=== PATIENT | male | born 1940 | race Caucasian/White ===

== ENCOUNTER → 2023-11-11 13:29 | Outpatient (REF) | payer MEDICARE, OTHER, SELFPAY | LOC: WOUND 13:29 | PROVIDERS: ATTENDING PHYSICIAN Surgery Plastic and Reconstructive Surgery; REFERRING PHYSICIAN Internal Medicine | DX: I70.234 Atherosclerosis of native arteries of right leg with ulceration of heel and midfoot (principal); L97.414 Non-pressure chronic ulcer of right heel and midfoot with necrosis of bone; E11.621 Type 2 diabetes mellitus with foot ulcer; E11.51 Type 2 diabetes mellitus with diabetic peripheral angiopathy without gangrene | CPT/HCPCS: 97597; 99213 ==

== ENCOUNTER → 2023-12-09 11:52 | Outpatient (REF) | payer MEDICARE, OTHER, SELFPAY | LOC: WOUND 11:52 | PROVIDERS: ATTENDING PHYSICIAN Surgery; FAMILY PHYSICIAN Internal Medicine | DX: I70.234 Atherosclerosis of native arteries of right leg with ulceration of heel and midfoot (principal); L97.414 Non-pressure chronic ulcer of right heel and midfoot with necrosis of bone; L89.313 Pressure ulcer of right buttock, stage 3; E11.621 Type 2 diabetes mellitus with foot ulcer; N18.30 Chronic kidney disease, stage 3 unspecified; I50.9 Heart failure, unspecified; E11.22 Type 2 diabetes mellitus with diabetic chronic kidney disease | CPT/HCPCS: 11042; 97597; 99213 ==

== ENCOUNTER 2023-12-31 19:17 | Inpatient (IN) | payer MEDICARE, OTHER, SELFPAY ==
[2023-12-31] VITALS (7 sets, daily range): BP systolic 111–134; BP diastolic 49–68; BMI 18.1
--- NOTE | 2023-12-31 17:24 | ED.GENMED ---
History of Present Illness
General
Chief Complaint: Abnormal Lab Value
Source: patient and ambulance crew
Exam Limitations: none
Time Seen by Provider: 12/31/23 17:06
Nursing documentation reviewed up to this point in time: agreed with
Travel History
Have you had any contact with someone who has COVID-19?: No
Do you have any symptoms of coronavirus? Fever > 100 degrees, chills, cough, shortness of breath, sore throat, loss of taste or smell, muscle aches, or headache?: No
History of Present Illness
History of Present Illness:
83 yo male presents emergency department due to abnormal labs, generalized weakness for the last few days. EMS notes that the halfway stated his hemoglobin was 6.8. He states he has had GI bleeds in the past, but denies any known bleeding at
this time.
Past History
Past History
ED Past Medical History: CHF, GERD, IDDM, Renal failure and Other (Diabetic neuropathy, peripheral vascular disease)
ED Past Surgical History: Other (RLE angioplasty, wound debridement, cataract)
Social History
Tobacco: Non-smoker
Alcohol: None
Drug: None
Living: halfway
Review of Systems
Review of Systems
Allergies reviewed?: Yes
All Other Systems: Not applicable
Constitutional: Reports no symptoms
EENT: Reports no symptoms
Respiratory: Reports trouble breathing
Cardiac: Reports no symptoms
ABD/GI: Reports no symptoms
: Reports no symptoms
Musculoskeletal: Reports no symptoms
Skin: Reports no symptoms
Neurological: Reports weakness
Endocrine: Reports no symptoms
Hematologic/Lymphatic: Reports no symptoms
Psychiatric: Reports no symptoms
Phy Exam
Physical Exam
Physical Exam:
Physical Exam
General: Pale, chronic ill-appearing
Neck: supple. no meningeal signs. normal posterior pharynx
Heart: s1/s2 regular rate and rhythm, no murmur. equal radial
pulses.
HEENT: Pupils equal round reactive to light, EOMI, pale oral mucosa
Lungs: no acute respiratory distress. clear bilaterally
Abdomen: normal bowel sounds. not tender. no CVAT, rectal exam, guaiac neg brown stool
Neuro: alert and oriented. no focal neurological deficits cranial nerves II through XII intact
Skin: no rash
Psychiatric: well kept. interactive and cooperative
Extremities: no edema. no calf tenderness. negative homans. good distal pulses
Course
Vital Signs
Initial and Last Documented VS:
Initial Vital Signs
Temp Pulse Resp BP Pulse Ox
97.7 F 88 18 111/64 99
12/31/23 13:59 12/31/23 13:59 12/31/23 13:59 12/31/23 13:59 12/31/23 13:59
Last Documented Vital Signs
Temp Pulse Resp BP Pulse Ox
97.7 F 88 18 111/64 99
12/31/23 13:59 12/31/23 13:59 12/31/23 13:59 12/31/23 13:59 12/31/23 13:59
MDM/Problems Addressed
Differential Diagnosis Includes:
Rectal bleeding, anemia
MDM/Problems Addressed:
83 yo male with symptomatic anemia, Hb 6.4. Rectal exam guaiac neg. Admit to hospitalist. 1 unit prbc ordered.
Chronic conditions affecting care: HTN and PVD
Acute Exacerbation and/or Progression of Chronic Illness: HTN and PVD
*Pulse Oximetry
Patient hypoxic: no
*EKG
Interpreted by ED Provider?: NA
*Family Law Legal Assistant Interpretation
Rate: Family Law Legal Assistant- N/A
*Critical Care Note
Total Time (30-74mins, 75-104mins- exclusive of procedures): 30
comment:
Critical care statement: A total of 30 minutes of critical care time was provided for this patient. This includes management of unstable vital signs, evaluation of the patient at bedside, reviewing the patient's pertinent medical records, discussion
with consultants, review of old EKGs and review of pertinent medical records. This time with separate from time utilized to perform the aforementioned documented procedures
Data Reviewed
Review of Other/Old Records Reveals: Labs (prior hb 9.9 07/28/23)
Patient Management
Social determinants of health affecting care: Living situation
Discussion with other providers: Hospitalist
Escalation/DeEscalation of care consider admission/obs:
admit indicated
ED Attending Note
-
Portions of this chart may have been created with voice recognition software.� Occasional wrong word or��sound alike� substitutions may have occurred due to the inherent limitations of voice recognition software.
Discharge Plan
Departure
Patient Disposition: Admit
Date of Disposition: 12/31/23
Time of Disposition: 17:37
Admit to: Telemetry
Presentation/result/management discussed w/ accepting MD/DO: Hospitalist
Patient with high blood pressure during this ER visit?: No
Condition: Fair
Discharge Problem:
Anemia, Chronic progressive renal failure
Prescriptions:
No Action
clopidogrel 75 mg Tablet
75 mg PO DAILY
aspirin 81 mg Tablet,Delayed Release (Dr/Ec)
81 mg PO DAILY
pantoprazole 40 mg Tablet,Delayed Release (Dr/Ec)
40 mg PO DAILY
furosemide 20 mg Tablet
20 mg PO DAILY
lorazepam [Ativan] 1 mg Tablet
1 mg PO HS
isosorbide dinitrate 10 mg Tablet
10 mg PO TID
tramadol 50 mg Tablet
50 mg PO Q8HPRN PRN (Reason: moderate pain)
magnesium hydroxide [Milk of Magnesia] 400 mg/5 mL Suspension
30 ml PO DAILYPRN PRN (Reason: constipation)
acetaminophen 325 mg Tablet
650 mg PO Q4HPRN PRN (Reason: mild pain)
Rx Instructions:
Max dose 3000 mg daily
sennosides-docusate sodium [Stimulant Laxative Plus] 8.6-50 mg Tablet
2 tab PO HS
mirtazapine 15 mg Tablet
15 mg PO HS
hydralazine 25 mg Tablet
50 mg PO TID Qty: 90 0RF
atorvastatin [Lipitor] 40 mg Tablet
40 mg PO HS
ondansetron HCl [Zofran] 4 mg Tablet
4 mg PO Q8HPRN PRN (Reason: nausea)
melatonin 3 mg Tablet
6 mg PO HS
tramadol 50 mg Tablet
50 mg PO QPM
lorazepam 1 mg Tablet
1 mg PO Q8HPRN PRN (Reason: anxiety)
albuterol sulfate [ProAir HFA] 90 mcg/actuation Hfa Aerosol Inhaler
2 puff INHALATION R QIDPRN PRN (Reason: sob)
saxagliptin [Onglyza] 5 mg Tablet
5 mg PO HS
Referrals:
UNKNOWN - PT DOES,NOT KNOW [Unknown Provider] -
Interventions
Interventions:
*Risk Screen - Suicide Last Done: 12/31/23 13:57
*Neglect/Abuse Screening Last Done: 12/31/23 13:57
*ED COVID-19 Vaccine History Last Done: 12/31/23 13:57
[2023-12-31 18:00] LABS: % Eosinophils 3.3 % (0-6); % Immature Granulocytes 0.4 % (0-0.5); % Lymphocytes 7.2 % (20.5-51.1); % Monocytes 12.5 % (1.7-9.3); % Neutrophils 75.6 % (42.2-75.2); Absolute Basophils 0.1 10^3/uL (0-0.2); Absolute Eosinophils 0.2 10^3/uL (0-0.7); Absolute Lymphocytes 0.5 10^3/uL (1.2-3.4); Absolute Monocytes 0.9 10^3/uL (0.1-0.6); Absolute Neutrophils 5.6 10^3/uL (1.4-6.5); Mean Corp Hgb Conc. 32.2 g/dL (33.0-37.0); Mean Corpuscular Hgb 21.6 pg (27.0-31.0); Mean Platelet Volume 9.9 fL (7.4-10.4); Nucleated Red Blood Cells % 0 % (-); Platelet Count 303 10^3/uL (130-400); Red Blood Cell Count 3.06 10^6/uL (4.70-6.10); Red Cell Dist. Width 15.5 % (11.5-14.5); White Blood Cell Count 7.4 10^3/uL (4.8-10.8)
[2023-12-31 18:14] LABS: ALT (SGPT) 61 U/L (0-50); AST (SGOT) 51 U/L (17-59); Alkaline Phosphatase 157 U/L (38-126); Blood Urea Nitrogen 53 mg/dl (9-20); Calcium 8.6 mg/dl (8.4-10.2); Carbon Dioxide 21 mmol/L (22-30); Chloride 107 mmol/L (98-107); Glucose 151 mg/dl (70-99); Potassium 4.3 mmol/L (3.5-5.1); Sodium 137 mmol/L (135-145); Total Bilirubin 0.5 mg/dl (0.2-1.3); Total Protein 7.3 g/dl (6.3-8.2); eGFR 36.66
[2023-12-31 18:31] LABS: Hematocrit 20.5 % (39.0-52.0); Hemoglobin 6.6 g/dL (13.0-18.0)
--- NOTE | 2023-12-31 18:43 | HPS.HSE ---
Addendum entered and electronically signed by Marium Contreras MD 12/31/23 19:37:
Patient is DNR.
Original Note:
Family Physician
-
Family Physician: De Doran
Chief Complaint
-
anemia
History of Present Illness
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
CKD, anxiety, neurogenic bladder with chronic Maddox cath, nonhealing wounds, osteomyelitis, GI bleeding, presenting for abnormal labs, generalized weakness and shortness of breath for the past 2 days. EMS notes that the halfway stated
hemoglobin 6.8. He denies any dizziness or chest pain. He has not checked his stool and denies any blood in the stool or black stool. Denies any abdominal pain or nausea or vomiting. Denies any weight gain or weight loss. He has been constipated
and his last bowel movement was yesterday.
Patient states 6 months ago he was admitted to [facility] for anemia and underwent endoscopy which showed a hole in his stomach with bleeding. He did have a colonoscopy within the past several years which apparently did not show any abnormality.
He denies smoking or alcohol.
Medical History
Past Medical History
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
CKD, anxiety, neurogenic bladder with chronic Maddox cath, nonhealing wounds, osteomyelitis,)
Past Surgical History: Reports Other (RLE angioplasty, wound debridement, cataract))
Social History
Tobacco: Non-smoker
Alcohol: None
Drug: None
Family History
Family History: Not pertinent
Allergies / Home Medications
Allergies reflects when Allergies were last updated in [employer].
Home Medications with original date entered in [employer]
Allergy/Medication List:
Allergies
Allergy/AdvReac Type Severity Reaction Status Date / Time
No Known Allergies Allergy Verified 12/31/23 13:57
Home Medications
aspirin 81 mg tablet,delayed release 81 mg PO DAILY Blood Clot Prevention/Tx 06/23/23
clopidogrel 75 mg tablet 75 mg PO DAILY Blood Clot Prevention/Tx 06/23/23
furosemide 20 mg tablet 20 mg PO DAILY Fluid Retention/Swelling 06/23/23
isosorbide dinitrate 10 mg tablet 10 mg PO TID Blood Pressure 06/23/23
lorazepam 1 mg tablet (Ativan) 1 mg PO HS anxiety 06/23/23
magnesium hydroxide 400 mg/5 mL oral suspension (Milk of Magnesia) 30 ml PO DAILYPRN PRN constipation 06/23/23
pantoprazole 40 mg tablet,delayed release 40 mg PO DAILY Gastrointestinal Issue 06/23/23
tramadol 50 mg tablet 50 mg PO Q8HPRN PRN moderate pain 06/23/23
acetaminophen 325 mg tablet 650 mg PO Q4HPRN PRN mild pain 07/03/23
mirtazapine 15 mg tablet 15 mg PO HS Mental Health/Anxiety 07/03/23
sennosides 8.6 mg-docusate sodium 50 mg tablet (Stimulant Laxative Plus) 2 tab PO HS Constipation 07/03/23
hydralazine 25 mg tablet 50 mg PO TID #90 tabs 07/29/23
albuterol sulfate 90 mcg/actuation aerosol inhaler (ProAir HFA) 2 puff inhalation R QIDPRN PRN sob 12/31/23
atorvastatin 40 mg tablet (Lipitor) 40 mg PO HS 12/31/23
lorazepam 1 mg tablet 1 mg PO Q8HPRN PRN anxiety 12/31/23
melatonin 3 mg tablet 6 mg PO HS 12/31/23
ondansetron HCl 4 mg tablet 4 mg PO Q8HPRN PRN nausea 12/31/23
saxagliptin 5 mg tablet (Onglyza) 5 mg PO HS 12/31/23
tramadol 50 mg tablet 50 mg PO QPM 12/31/23
Review of Systems
-
History Source: Patient
A 12 point ROS was completed and negative except as noted: Yes
Constitutional: Reports No Symptoms
EENT: Reports No Symptoms
Respiratory: Reports No Symptoms
Cardiac: Reports No Symptoms
Abdomen/GI: Reports See HPI
: Reports No Symptoms
Musculoskeletal: Reports No Symptoms
Skin: Reports No Symptoms
Neurological: Reports No Symptoms
Endocrine: Reports No Symptoms
Hematologic/Lymphatic: Reports No Symptoms
Psych: Reports No Symptoms
Physical Exam
Vital Signs
Vital Signs
Temp Pulse Resp BP Pulse Ox
97.7 F 85 18 124/57 99
12/31/23 13:59 12/31/23 18:30 12/31/23 13:59 12/31/23 18:16 12/31/23 18:30
Physical Exam
General: Well Developed, Well Nourished and No Apparent Distress
HEENT: NormoCephalic, Moist mucous membranes and Atraumatic
Respiratory: Clear
Cardiac: S1/S2 and Regular Rhythm; No Murmur or Rub
GI: Soft, Non Tender, Non Distended and Normal Bowel Sounds; No Organomegaly
Rectal: Deferred by Provider
Musculoskeletal: No Clubbing, No Cyanosis and No Edema
Skin: No Rash
Neuro: Nonfocal/grossly intact
Laboratory Results
-
12/31/23 17:47
12/31/23 17:47
Laboratory Results
Total Bilirubin 0.5 mg/dl (0.2-1.3) 12/31/23 17:47
AST 51 U/L (17-59) 12/31/23 17:47
ALT 61 U/L (0-50) H 12/31/23 17:47
Alkaline Phosphatase 157 U/L (38-126) H 12/31/23 17:47
Data Reviewed
-
Lab Data: Labs Reviewed by me
Old Records: Reviewed
Impression/Plan
-
IMPRESSION:
PLAN:
# Acute on chronic microcytic anemia
# History of possible bleeding gastric ulcer
-Hemoglobin 6.4 from 9.9
-Hemoccult negative
-1 unit of blood
-N.p.o.
-Hold aspirin and Plavix for now
-Protonix 40 IV twice daily
-Check iron studies, TIBC, ferritin, B12, folate
-GI consulted
-will need to obtain records from [facility]
#Constipation
-Start Miralax
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
Hypoattenuating lesions within the pancreas
History of AV block status post pacemaker
Chronic HFpEF
-Continue Lasix
-Continue isosorbide dinitrate
Moderate aortic stenosis
Essential hypertension
-Continue hydralazine
Peripheral arterial disease status post right femoral endarterectomy/bypass
-Underwent right superficial femoral to below-knee popliteal artery bypass with ipsilateral greater saphenous vein conduit
-Hold aspirin and Plavix
Right lower extremity foot injury status post debridement
Type 2 diabetes
-Hold saxagliptin
-Insulin sliding scale
Diabetic neuropathy
-Continue tramadol
Neurogenic bladder with chronic Maddox catheter
Hyperlipidemia
-Continue statin
CKD
-Renal function at baseline
Anxiety
-Continue lorazepam, mirtazapine
GERD/hiatal hernia
History of nonhealing lower extremity wounds
Full code
DVT prophylaxis�SCDs
N.p.o.
--- NOTE | 2023-12-31 20:00 | PTCARENOTE ---
Received patient to floor via stretcher accompanied by PCT. Patient transferred to bed without difficulty. Assessment as documented, bed locked and in lowest position, call mock in place, oriented to facility/room. Continue with current care plan.
[2023-12-31] MEDS: REMERON 15 MG PO (20:30)
[2023-12-31] MEDS: MELATONIN 6 MG PO (20:30)
[2023-12-31] MEDS: NSS (PRESERVATIVE FREE) 10 ML IV (20:30)
[2023-12-31] MEDS: PROTONIX IV 40 MG IV (20:30)
[2023-12-31] MEDS: SENOKOT-S 2 TABLET PO (20:31)
[2023-12-31] MEDS: ATIVAN 1 MG PO (20:31)
[2023-12-31] MEDS: APRESOLINE 50 MG PO (20:31)
[2023-12-31] MEDS: ISORDIL 10 MG PO (20:31)
[2023-12-31] MEDS: LIPITOR 40 MG PO (20:31)
[2023-12-31 20:50] LABS: Iron 35 ug/dl (49-181)
[2023-12-31 21:00] LABS: Percent Saturation 8 % (20-50); Total Iron Binding Capacity 391 ug/dl (261-462)
[2023-12-31 21:26] LABS: Ferritin 21.6 ng/ml (17.9-464.0)
[2023-12-31 21:58] LABS: Folate 14.3 ng/ml (2.76-20); Vitamin B12 922 pg/ml (239-931)
[2023-12-31] MEDS: ULTRAM 50 MG PO (23:52)
[2024-01-01 00:16] LABS: Glucose - Point of Care 151 mg/dl (70-99)
[2024-01-01 03:03] VITALS: BP 134/65
[2024-01-01 05:33] LABS: Glucose - Point of Care 126 mg/dl (70-99)
[2024-01-01] MEDS: NOVOLOG FLEXPEN-LOW RESISTANCE SC (05:42)
[2024-01-01 07:27] VITALS: BP 135/65
--- NOTE | 2024-01-01 08:31 | CON.GI ---
Addendum entered and electronically signed by Ifrah Loera MD 01/01/24 19:56:
I saw and examined the patient.
The [employer] or PA's note was reviewed and I agree with the note.
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 Blankenship and
subsequently at [facility], has had multiple endoscopies in the past, sent to the emergency room from nursing facility for low hemoglobin. In the ER, hemoglobin noted to be 6.4, microcytosis, Iron deficiency indices noted. Currently heme-negative
stool. Follow[facility] with [facility] requiring Aranesp and Sandostatin and Injectafer in the past. No significant active GI issues at this time.
Hemodynamically stable. On aspirin and Plavix, last dose 12/31. Currently held.
-Microcytic anemia which seems to be chronic and multifactorial, history of GAVE ,MDS
Currently no active bleeding and hemodynamically stable
Continue PPI 40 mg IV twice daily
On IV iron as well
Will get records from [facility] to review
If there is history of GAVE in spite of multiple ablations, will need upper endoscopy again with APC of GAVE.
Might add Carafate
If needed, upper endoscopy can be done 01/05/2024 after Plavix washout
Okay for clear liquid diet for now
-Prior to discharge, agree with MRI of the abdomen to follow-up on the pancreatic lesion, okay to give contrast with a GFR of 39.
Will follow
Original Note:
Consultation
-
Date/Time Consultation Requested: 12/31/232199
Date/Time Consultation Performed: 01/01/24 0831
Requesting Provider: Dr. Contreras
Performing Provider: Dr. Loera/CLAYTON Appiah
Reason for Consultation: GIB/anemia
Medical History
Chief Complaint / HPI
Chief Complaint: PAD
History of Present Illness:
83 y/o male with PMH of PAD, right foot wounds, HTN, HLD, DM, Heart failure, chronic kidney disease, GERD, anxiety, osteomyelitis, neurogenic bladder, right lower extremity angioplasty/stent March 2023, anemia in the past and when we saw him in
07/2023 the patient states that he had a history of a hole in his stomach that had to be repaired a few months back at either [facility] or [facility].� At that time the patient was the patient was admitted for staged procedure for
peripheral artery disease, Right femoral to below-knee popliteal artery bypass with ipsilateral spliced greater saphenous vein. This was performed on 07/16/2023.� He had bleeding in the OR and possible bypass graft flow/occlusion upon completion per
vascular surgery.� He received 3 units packed red blood cells in the OR and we were asked to evaluate for a hypoattenuating lesion seen in the pancreatic neck measuring 1.2 cm and mildly dilated pancreatic duct within the body and the tail the
pancreas on 06/23/23. The patient states that they called Dr. Blankenship after DC and per the patient said that the Hgb was not a GI issue. He also states that he has a history of anemia and had multiple studies to look for the source.� He states he
was evaluated even at [facility] for the same.�He states that he saw Heme and had IV infusions and even shots to help improve his Hgb without much success. He has had multiple blood transfusions and was sent over to [facility] as well.� The patient states that he was at either [facility] or [facility] when they found a 'hole in my stomach'.� The patient now presents to the ER with abnormal labs (Hgb 6.8) and generalized weakness. Rectal exam was performed
in the ER and was brown OB negative stool. The patient is on ASA and Plavix as well as Pantoprazole 40 mg po daily.� He denies any fevers, chills, vomiting, melena, hematochezia, dysphagia or odynophagia.�His weight has been stable since last
admission in the hospital. He does complain of some mild nausea which he feels is secondary to not being able to eat and being diabetic and has been constipated for a couple days.
Past Medical History
Past Medical History: CHF, GERD, HTN, Hypercholesterolemia, NIDDM and Other (PID, osteomyelitis right foot, diabetic neuropathy, anxiety, CKD, anemia,)
Past Surgical History: Other (Right lower extremity angioplasty and stents x2 (03/2023), cataract left, Right femoral endarterectomy with right lower extremity angiogram)
Social History
Tobacco: Non-Smoker
Alcohol: None
Drug: None
Living: Residential
Family History
Family History: Other (No fam hx of GI malignancy or IBD)
Allergies / Home Medications
Allergy/AdvReac Type Severity Reaction Status Date / Time
No Known Allergies Allergy Verified 12/31/23 13:57
Medication Instructions Recorded
aspirin 81 mg tablet,delayed 81 mg PO DAILY Blood Clot 06/23/23
release Prevention/Tx
clopidogrel 75 mg tablet 75 mg PO DAILY Blood Clot 06/23/23
Prevention/Tx
furosemide 20 mg tablet 20 mg PO DAILY Fluid 06/23/23
Retention/Swelling
isosorbide dinitrate 10 mg tablet 10 mg PO TID Blood Pressure 06/23/23
lorazepam 1 mg tablet (Ativan) 1 mg PO HS anxiety 06/23/23
magnesium hydroxide 400 mg/5 mL 30 ml PO DAILYPRN PRN constipation 06/23/23
oral suspension (Milk of Magnesia)
pantoprazole 40 mg tablet,delayed 40 mg PO DAILY Gastrointestinal 06/23/23
release Issue
tramadol 50 mg tablet 50 mg PO Q8HPRN PRN moderate pain 06/23/23
acetaminophen 325 mg tablet 650 mg PO Q4HPRN PRN mild pain 07/03/23
mirtazapine 15 mg tablet 15 mg PO HS Mental Health/Anxiety 07/03/23
sennosides 8.6 mg-docusate sodium 2 tab PO HS Constipation 07/03/23
50 mg tablet (Stimulant Laxative
Plus)
hydralazine 25 mg tablet 50 mg PO TID #90 tabs 07/29/23
albuterol sulfate 90 mcg/actuation 2 puff inhalation R QIDPRN PRN sob 12/31/23
aerosol inhaler (ProAir HFA)
atorvastatin 40 mg tablet (Lipitor) 40 mg PO HS High Cholesterol 12/31/23
lorazepam 1 mg tablet 1 mg PO Q8HPRN PRN anxiety 12/31/23
melatonin 3 mg tablet 6 mg PO HS Sleep 12/31/23
ondansetron HCl 4 mg tablet 4 mg PO Q8HPRN PRN nausea 12/31/23
saxagliptin 5 mg tablet (Onglyza) 5 mg PO HS Diabetes 12/31/23
tramadol 50 mg tablet 50 mg PO QPM Pain 12/31/23
Review of Systems
-
All other systems: A 12 pt ROS was Negative except as stated above in HPI
Vital Signs
Temp Pulse Resp BP Pulse Ox
97.4 F 88 16 135/65 96
01/01/24 07:27 01/01/24 07:27 01/01/24 07:27 01/01/24 07:27 01/01/24 07:27
Physical Exam
Exam
General: No Apparent Distress and Comfortable
HEENT: Anicteric
Respiratory: Clear
Cardiac: Regular Rhythm
GI: Soft, Non Tender, Non Distended and Normal Bowel Sounds
Rectal: Hem Negative (per ER report)
Skin: Warm, Dry and Other (areas of ecchymosis arms)
Neuro: AO x 3
Psych: Calm
Results
WBC 7.4 10^3/uL (4.8-10.8) 12/31/23 17:47
Hgb 6.6 g/dL (13.0-18.0) L* 12/31/23 17:47
Hct 20.5 % (39.0-52.0) L* 12/31/23 17:47
MCV 67.0 fL (80.0-94.0) L 12/31/23 17:47
Plt Count 303 10^3/uL (130-400) 12/31/23 17:47
Absolute Neuts (auto) 5.6 10^3/uL (1.4-6.5) 12/31/23 17:47
Sodium 137 mmol/L (135-145) 12/31/23 17:47
Potassium 4.3 mmol/L (3.5-5.1) 12/31/23 17:47
Chloride 107 mmol/L (98-107) 12/31/23 17:47
Carbon Dioxide 21 mmol/L (22-30) L 12/31/23 17:47
BUN 53 mg/dl (9-20) H 12/31/23 17:47
Creatinine 1.8 mg/dL (0.7-1.3) H 12/31/23 17:47
Calcium 8.6 mg/dl (8.4-10.2) 12/31/23 17:47
Total Bilirubin 0.5 mg/dl (0.2-1.3) 12/31/23 17:47
AST 51 U/L (17-59) 12/31/23 17:47
ALT 61 U/L (0-50) H 12/31/23 17:47
Alkaline Phosphatase 157 U/L (38-126) H 12/31/23 17:47
Diagnostic Image Results:
none this visit
Prior GI Procedures:
EGD:� Within the past 9 months, Will need to obtain records
Colonoscopy:� (Dr. Blankenship) approximately 7 years ago. Per patient normal
Assessment / Plan
-
83 y/o male with PMH of PAD, right foot wounds, HTN, HLD, DM, Heart failure, chronic kidney disease, GERD, anxiety, osteomyelitis, neurogenic bladder, right lower extremity angioplasty/stent March 2023, anemia in the past and when we saw him in
07/2023 the patient states that he had a history of a hole in his stomach that had to be repaired a few months back at either [facility] or [facility].� At that time the patient was the patient was admitted for staged procedure for
peripheral artery disease, Right femoral to below-knee popliteal artery bypass with ipsilateral spliced greater saphenous vein. This was performed on 07/16/2023.� He had bleeding in the OR and possible bypass graft flow/occlusion upon completion per
vascular surgery.� He received 3 units packed red blood cells in the OR and we were asked to evaluate for a hypoattenuating lesion seen in the pancreatic neck measuring 1.2 cm and mildly dilated pancreatic duct within the body and the tail the
pancreas on 06/23/23. Patient now was sent to the ER with abnormal labs Hgb 6.8 and generalized weakness with brown OB negative stool. Patient is poor historian. Patient has been transfused 1 unit PRBC and we are awaiting repeat labs this am. Patient
with extensive hx of anemia with GI and Heme workup at other institutions in the past. He does have a mildly elevated ALT and Alk Phos which is new. He also does have some mild nausea this am which he feels is secondary to being kept NPO and he is
diabetic, (last BS check 126 this am). He denies any abd pain but has had constipation for a couple days. Patient with iron deficiency with normal TIBC. B12 and Folate normal.
Impression:
1. Microcytic anemia
-OB negative, longstanding, stool negative for occult blood ER 12/31/22 (1700) was brown as well, on DAPT (ASA 81 mg /Plavix)
-Hx of 'hole in stomach' and told this was cause of his anemia on prior hospitalization ? [facility]. Had EGD at that time. (? January 2023) Does not recall being told of an ulcer.
-Also would follow up at [facility] for IV infusions and injections for anemia in the past as well.
2. Mildly elevated AST/Alk Phos
3. Hypoattenuating lesion is seen within the uncinate process of the pancreas, measuring 8 mm in diameter, A separate hypoattenuating lesion is seen within the pancreatic neck,measuring 1.2 cm in diameter. Mild dilation of the pancreatic duct within
the body and tail of the pancreas on CT Abd Aorta Angio W/ Run Off 06/23/23.
4. Constipation
Plan:
-Transfuse as appropriate
-Continue Pantoprazole, currently on 40 mg IV BID
-Trend LFTs
-Will obtain all records from [facility], [facility] and Dr. Blankenship as patient states he was at all facilities. Also ask [facility] if they have any records.
-Would like to have MRI of abdomen ideally for pancreatic lesion. GFR is 39. Would need to speak to Renal.
-Continue Miralax
-Recommend Heme consultation
-Clear liquid diet, no red as patient on Plavix (last dose likely yesterday). Would need 5 day wash out for any GI procedures.
-Further recommendations to follow.
Data Reviewed
-
Old Records: Reviewed
-
-
Thank you for consultation and allowing me to participate in the patient's care. Please call the administration physician GI physician during the after hours with any questions or concerns.
[2024-01-01 08:39] LABS: % Basophils 1.2 % (0-2); % Eosinophils 2.1 % (0-6); % Immature Granulocytes 0.4 % (0-0.5); % Lymphocytes 7.2 % (20.5-51.1); % Monocytes 13.2 % (1.7-9.3); % Neutrophils 75.9 % (42.2-75.2); Absolute Basophils 0.1 10^3/uL (0-0.2); Absolute Eosinophils 0.1 10^3/uL (0-0.7); Absolute Lymphocytes 0.5 10^3/uL (1.2-3.4); Absolute Monocytes 0.9 10^3/uL (0.1-0.6); Absolute Neutrophils 5.1 10^3/uL (1.4-6.5); Hematocrit 27.1 % (39.0-52.0); Mean Corp Hgb Conc. 32.8 g/dL (33.0-37.0); Mean Corpuscular Hgb 23.4 pg (27.0-31.0); Mean Corpuscular Volume 71.1 fL (80.0-94.0); Mean Platelet Volume 10.2 fL (7.4-10.4); Nucleated Red Blood Cells % 0 % (-); Platelet Count 299 10^3/uL (130-400); Red Blood Cell Count 3.81 10^6/uL (4.70-6.10); Red Cell Dist. Width 19.1 % (11.5-14.5); White Blood Cell Count 6.8 10^3/uL (4.8-10.8)
[2024-01-01 09:03] LABS: Hemoglobin 8.9 g/dL (13.0-18.0)
[2024-01-01 09:15] LABS: ALT (SGPT) 62 U/L (0-50); AST (SGOT) 55 U/L (17-59); Albumin 3.7 g/dl (3.5-5.0); Alkaline Phosphatase 170 U/L (38-126); Blood Urea Nitrogen 50 mg/dl (9-20); Calcium 8.8 mg/dl (8.4-10.2); Carbon Dioxide 19 mmol/L (22-30); Chloride 108 mmol/L (98-107); Estimated Creatinine Clearance 24 ml/min; Glucose 121 mg/dl (70-99); Potassium 4.2 mmol/L (3.5-5.1); Sodium 137 mmol/L (135-145); Total Bilirubin 0.8 mg/dl (0.2-1.3); Total Protein 6.9 g/dl (6.3-8.2); eGFR 39.26
[2024-01-01 09:42] VITALS: BMI 19.9
--- NOTE | 2024-01-01 11:18 | CM ---
Patient seen bedside, initial assessment completed. Patient reports he resides at [facility] and uses a wheelchair. Patient reports he does receive PT services at facility, reports he has been to a SNF in the past. Patient confirms PCP Dr. Doran,
pharmacy [facility].
CM spoke with nurse Helga at [facility], patient resides in the personal care unit. Per nurse, patient requires a two person assist and cannot stand at all, patient is in wheelchair or bed. Helga reports patient does receive PT at
facility. Helga reports patients fry was scheduled to be changed tomorrow, also reports patient has a wound on his right foot. CM will continue to follow for discharge planning needs.
Plan; return to [facility] once stable
Report: [phone], personal care unit
[2024-01-01] MEDS: ISORDIL 10 MG PO ×3 (11:27→21:29)
[2024-01-01] MEDS: PROTONIX IV 40 MG IV ×2 (11:28→19:40)
[2024-01-01] MEDS: NSS (PRESERVATIVE FREE) 10 ML IV ×2 (11:28→19:39)
[2024-01-01] MEDS: MIRALAX 17 GRAMS PO (11:28)
[2024-01-01] MEDS: APRESOLINE 50 MG PO ×3 (11:28→21:29)
[2024-01-01] MEDS: FLUSH (NSS) 2 FLUSH IV (11:32)
[2024-01-01] MEDS: LASIX 20 MG PO (11:37)
[2024-01-01 11:51] VITALS: BP 129/61
--- NOTE | 2024-01-01 12:15 | W.PN.HOSP.TC ---
Today's Communication/Plan
-
Please see below
Assessment / Plan
Assessment / Plan
Physical Exam
General: Well Developed, Well Nourished and No Apparent Distress
HEENT: Normocephalic, Moist mucous membranes and Atraumatic
Respiratory: Clear
Cardiac: S1/S2 and Regular Rhythm
GI: Soft, Non Tender, Non Distended and Normal Bowel Sounds
Musculoskeletal: No Cyanosis and No Edema
Skin: Warm. Dry.
Neuro: Nonfocal/grossly intact
Assessment/Plan
# Acute on chronic microcytic anemia
# History of possible bleeding gastric ulcer (History of 'hole in stomach' and told this was cause of his anemia on prior hospitalization ? [facility])
-Hemoglobin 6.4 from 9.9
-Hemoccult negative
-1 unit of blood --> subsequent Hgb improved significantly
-Clear Liquids Diet
-Hold aspirin and Plavix for now --> consider resuming Aspirin tomorrow
-Plavix (last dose likely yesterday): would need 5 day wash out for any GI procedures.
-Protonix 40 IV twice daily
-Check iron studies (suggests iron deficiency anemia)
-Vitamin B12 (within normal limits)
-Folate (within normal limits)
-GI consulted, recommendations appreciated
-Appreciate GI requesting records from multiple facilities
-Follow up at [facility] for IV infusions and injections for anemia
-Will consult hematology for anemia
#Constipation
-Start Miralax
#Mildly elevated AST/Alk Phos
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
#Hypoattenuating lesions within the pancreas
-Will need MRI of the abdomen
-Will need to discuss case with nephrology given GFR of 39
History of AV block status post pacemaker
Chronic HFpEF
-Continue Lasix
-Continue isosorbide dinitrate
Moderate aortic stenosis
Essential hypertension
-Continue hydralazine
Peripheral arterial disease status post right femoral endarterectomy/bypass
-Underwent right superficial femoral to below-knee popliteal artery bypass with ipsilateral greater saphenous vein conduit
-Hold aspirin and Plavix
Right lower extremity foot injury status post debridement
Type 2 diabetes mellitus
-Hold saxagliptin
-Insulin sliding scale
Diabetic neuropathy
-Continue tramadol
Neurogenic bladder with chronic Maddox catheter
Hyperlipidemia
-Continue statin
CKD
-Renal function at baseline
Anxiety
-Continue lorazepam, mirtazapine
GERD/hiatal hernia
History of nonhealing lower extremity wounds
PAD
Right lower extremity angioplasty/stent March 2023
Right foot wounds
HLD
Osteomyelitis
Neurogenic bladder
Full code
DVT prophylaxis�SCDs
Diet: Clear Liquid Diet
Anticipated Discharge: > 48 hours
Subjective/Interval History
-
Date of Service: January 01, 2024
Patient was seen and examined. He reported some nausea but otherwise denied any other new significant complaints.
Objective Data
-
Labs:
Laboratory Results
01/01/24
08:14
WBC 6.8
Hgb 8.9 L D
Hct 27.1 L
Plt Count 299
Sodium 137
Potassium 4.2
Chloride 108 H
Carbon Dioxide 19 L
BUN 50 H
Creatinine 1.7 H
Glucose 121 H
Calcium 8.8
Total Bilirubin 0.8
AST 55
ALT 62 H
Alkaline Phosphatase 170 H
Vital Signs:
Vital Signs
Temp Pulse Resp BP Pulse Ox
97.4 F 61 16 129/61 96
01/01/24 07:27 01/01/24 11:51 01/01/24 07:27 01/01/24 11:51 01/01/24 07:27
I&O
12/31/23 01/01/24 01/02/24
06:59 06:59 06:59
Intake Total 250 / 250
Output Total 400 / 400
Balance -150 / -150
--- NOTE | 2024-01-01 12:39 | CON.ONC ---
Addendum entered and electronically signed by Mario Pittman DO 01/01/24 14:20:
69 patient independently examined and records reviewed. Agree with impression and plan as outlined below by C[facility]. 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 He has previously been
evaluated by the [facility] of [place]. Most recently appears to be treating at [place] with erythropoietin support. Patient is welcome to follow-up locally should this be more convenient.
Original Note:
Impression
Impression
Acute on chronic multifactorial anemia requiring Aranesp [id number]
Hx Myelodysplastic syndrome
Iron deficiency anemia
CKD3a
Hx of gastric AVMs
Hx GIB
Chronic PPI use
Acute nausea
Hx GAVE syndrome
Plan
Plan
01/01 Hgb 8.9 (improved from 6.6)
s/p 1unit PRBCs
Transfuse as needed to maintain Hgb >7, PLT >20
IV iron recommended in the absence of acute infection/sepsis: IV iron ordered x5 bags
Holding Plavix pending possible GI procedures
Continue PPI BID
Chronic PPI use can inhibit the overall absorption of iron
MRI abdomen is recommended to further evaluate pancreas pending renal clearance
Supportive care, nausea management, diet as tolerated
Records reviewed from [facility] - communicated with GI
EPO level ordered - follow up with [facility] for Aranesp upon discharge
We will continue to follow.
Patient History
History of Present Illness
Melanie Katz is an 83 year old male who presented to the ER 12/31/23 due to abnormal outpatient labs and generalized weakness. CBC showed Hgb of 6.4. He has extensive history of GI bleeding n the past due to gastric AVMs/history of GAVE syndrome.
He is well known to Dr. Blankenship ([facility]) who has cauterized his GI tract upwards of 6-8 times per documentation. He was previously followed by Dr. Prasanth Lindsey and Dr. Scott Esparza with [facility] in 2021 due to history of multifactorial
anemia and EPO level <200 requiring Aranesp [id number] and monthly Sandostatin 20mg. He received Injectafer Aug 2022 and began Aranesp Aug 2022. First Sandostatin dose was administered 10/09/22. Upon his original presentation to [facility], his Hgb was
4.5. He underwent bone marrow biopsy in Aug 2022 which showed no significant immunophenotypic abnormalities. It appears he stopped following up with [facility] at the end of 2021.
Past-Medical/Surgical History
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
AV block s/p pacemaker
Renal insufficiency
Chronic multifactorial anemia
chronic HFpEF
Aortic stenosis
GAVE syndrome
EPO level <200
Gastric AVMs
Myelodysplastic syndrome requiring Aranesp
GI bleed of stomach/duodenum
PAD s/p right fem endarterectomy (07/2023)
RLE angioplasty w/ stents (03/2023)
Neurogenic bladder with chronic indwelling catheter
Hx self catheterization
Hypertension
Hyperlipidemia
Anxiety
Nonhealing wounds right foot s/p debridement
Cataracts
Osteomyelitis
GERD
DM2
Diabetic neuropathy
Patient Medication
Medication Instructions Recorded Confirmed Last Taken Type
aspirin 81 mg tablet,delayed 81 mg PO DAILY Blood Clot 06/23/23 12/31/23 12/31/23 History
release Prevention/Tx
clopidogrel 75 mg tablet 75 mg PO DAILY Blood Clot 06/23/23 12/31/23 12/31/23 History
Prevention/Tx
furosemide 20 mg tablet 20 mg PO DAILY Fluid 06/23/23 12/31/23 12/31/23 History
Retention/Swelling
isosorbide dinitrate 10 mg tablet 10 mg PO TID Blood Pressure 06/23/23 12/31/23 12/31/23 History
lorazepam 1 mg tablet (Ativan) 1 mg PO HS anxiety 06/23/23 12/31/23 12/30/23 History
magnesium hydroxide 400 mg/5 mL 30 ml PO DAILYPRN PRN constipation 06/23/23 12/31/23 07/15/23 14:00 History
oral suspension (Milk of Magnesia)
pantoprazole 40 mg tablet,delayed 40 mg PO DAILY Gastrointestinal 06/23/23 12/31/23 12/31/23 History
release Issue
tramadol 50 mg tablet 50 mg PO Q8HPRN PRN moderate pain 06/23/23 12/31/23 12/29/23 History
acetaminophen 325 mg tablet 650 mg PO Q4HPRN PRN mild pain 07/03/23 12/31/23 12/08/23 History
mirtazapine 15 mg tablet 15 mg PO HS Mental Health/Anxiety 07/03/23 12/31/23 12/30/23 History
sennosides 8.6 mg-docusate sodium 2 tab PO HS Constipation 07/03/23 12/31/23 12/30/23 History
50 mg tablet (Stimulant Laxative
Plus)
hydralazine 25 mg tablet 50 mg PO TID #90 tabs 07/29/23 12/31/23 12/31/23 Rx
albuterol sulfate 90 mcg/actuation 2 puff inhalation R QIDPRN PRN sob 12/31/23 12/31/23 Unknown History
aerosol inhaler (ProAir HFA)
atorvastatin 40 mg tablet (Lipitor) 40 mg PO HS High Cholesterol 12/31/23 12/31/23 12/30/23 History
lorazepam 1 mg tablet 1 mg PO Q8HPRN PRN anxiety 12/31/23 12/31/23 Unknown History
melatonin 3 mg tablet 6 mg PO HS Sleep 12/31/23 12/31/23 12/30/23 History
ondansetron HCl 4 mg tablet 4 mg PO Q8HPRN PRN nausea 12/31/23 12/31/23 12/26/23 History
saxagliptin 5 mg tablet (Onglyza) 5 mg PO HS Diabetes 12/31/23 12/31/23 12/30/23 History
tramadol 50 mg tablet 50 mg PO QPM Pain 12/31/23 12/31/23 12/30/23 History
Active Medications
Generic Name Dose Route Start Last Admin
Trade Name Freq PRN Reason Stop Dose Admin
Acetaminophen 650 mg 12/31/23 20:00
Acetaminophen 325 Mg Tablet PO 01/28/24 19:59
Q4HPRN PRN
mild pain
Albuterol 2 puff 12/31/23 20:00
Albuterol Hfa [90 Mcg/Dose] Inhaler INH 01/28/24 19:59
R QIDPRN PRN
sob
Protocol
Atorvastatin Calcium 40 mg 12/31/23 22:00 12/31/23 20:31
Atorvastatin (Lipitor) 40 Mg Tablet PO 01/28/24 21:59 40 mg
HS ROGER Administration
Dextrose 12.5 grams 12/31/23 20:00
Dextrose 50% (0.5 Grams/Ml) 50 Ml Syringe IV 01/28/24 19:59
[id number] PRN
hypoglycemia
Protocol
Furosemide 20 mg 01/01/24 08:00 01/01/24 11:37
Furosemide 20 Mg Tablet PO 01/29/24 07:59 20 mg
DAILY ROGER Administration
Glucagon 1 mg 12/31/23 20:00
Glucagon 1 Mg Vial IM 01/28/24 19:59
PRN PRN
hypoglycemia
Protocol
Hydralazine HCl 50 mg 12/31/23 22:00 01/01/24 11:28
Hydralazine 50 Mg Tablet PO 01/28/24 21:59 50 mg
TID ROGER Administration
Ferric Sodium Gluconate 110 mls @ 110 mls/hr 01/01/24 14:00
Complex 125 mg/ Sodium IV 01/05/24 14:59
Chloride DAILY@1400 ROGER
Insulin Aspart 0 units 01/01/24 06:00 01/01/24 05:42
Insulin Aspart Low Resistance 300 Units/3 Ml Pen.Injctr SC 01/29/24 05:59 Not Given
Q6 ROGER
Protocol
Isosorbide Dinitrate 10 mg 12/31/23 22:00 01/01/24 11:27
Isosorbide Dinitrate 10 Mg Regular Release Tablet PO 01/28/24 21:59 10 mg
TID ROGER Administration
Lorazepam 1 mg 12/31/23 22:00 12/31/23 20:31
Lorazepam 1 Mg Tablet PO 01/28/24 21:59 1 mg
HS ROGER Administration
Lorazepam 1 mg 12/31/23 20:00
Lorazepam 1 Mg Tablet PO 01/28/24 19:59
Q8HPRN PRN
anxiety
Magnesium Hydroxide 30 ml 12/31/23 20:00
Milk Of Magnesia 30 Ml Cup PO 01/28/24 19:59
DAILYPRN PRN
constipation
Melatonin 6 mg 12/31/23 22:00 12/31/23 20:30
Melatonin 3 Mg Tablet PO 01/28/24 21:59 6 mg
HS ROGER Administration
Mirtazapine 15 mg 12/31/23 22:00 12/31/23 20:30
Mirtazapine 15 Mg Regular Release Tablet PO 01/28/24 21:59 15 mg
HS ROGER Administration
Ondansetron HCl 4 mg 12/31/23 20:00
Ondansetron 4 Mg Tablet PO 01/28/24 19:59
Q8HPRN PRN
nausea
Pantoprazole Sodium 40 mg 12/31/23 20:00 01/01/24 11:28
Pantoprazole Sodium 40 Mg/10 Ml Vial IV 01/28/24 19:59 40 mg
BID ROGER Administration
Polyethylene Glycol 17 grams 01/01/24 08:00 01/01/24 11:28
Polyethylene Glycol Powder 17 Grams Packet PO 01/29/24 07:59 17 grams
DAILY ROGER Administration
Senna/Docusate Sodium 2 tablet 12/31/23 22:00 12/31/23 20:31
Docusate W/Senna (Elisa-Colace) Tablet PO 01/28/24 21:59 2 tablet
HS ROGER Administration
Sodium Chloride 10 ml 12/31/23 20:00 01/01/24 11:28
Sodium Chloride 0.9% (Preservative Free) 10 Ml Vial IV 01/28/24 19:59 10 ml
BID ROGER Administration
Sodium Chloride 0 flush 12/31/23 21:00 01/01/24 11:32
Sodium Chloride 0.9% (Flush) Syringe IV 01/28/24 20:59 2 flush
PER PROTOCOL ROGER Administration
Tramadol HCl 50 mg 12/31/23 20:00 12/31/23 23:52
Tramadol Hcl 50 Mg Tablet PO 01/28/24 19:59 50 mg
Q8HPRN PRN Administration
moderate pain
Tramadol HCl 50 mg 01/01/24 18:00
Tramadol Hcl 50 Mg Tablet PO 01/29/24 17:59
QPM ROGER
Review of Systems
-
Unable to obtain full review of systems at this time due to: Acuity
History Source: Patient and Records
Constitutional: Reports No Symptoms
EENT: Reports No Symptoms
Respiratory: Reports No Symptoms
Cardiac: Reports No Symptoms
GI: Reports Nausea
Breast: Reports N/A
: Reports Other (chronic fry )
Musculoskeletal: Reports No Symptoms
Skin: Reports No Symptoms
Neuro: Reports No Symptoms
Endocrine: Reports No Symptoms
Hematologic/Lymphatic: Reports Bruising
Allergy / Immunology: Reports No Symptoms
Psych: Reports No Symptoms
Physical Exam
-
Patient is resting in bed. He denies acute pain. He reports nausea, denies vomiting. He is dozing off during conversation. Poor historian
General: Comfortable, Conversant and Appears Chronically Ill
HEENT: Negative Jaundice
Cardiology: Normal Sinus Rhythm
Pulmonary: Other (coarse/dim lung sounds)
GI: Soft
Genito-Urinary: Fry (clear phyllis urine)
Musculoskeletal: No Edema
Extremities: Pulses Present
Neurology: Non Focal
Skin: Warm, Dry, Ulcers (right first toe, right foot wound ) and Other (pallor); Negative No Ecchymosis (scattered ecchymosis)
Hematologic / Lymphatic: No Petechiae
Psych: Calm
Labs
Lab Results
WBC 6.8 10^3/uL (4.8-10.8) 01/01/24 08:14
RBC 3.81 10^6/uL (4.70-6.10) L 01/01/24 08:14
Hgb 8.9 g/dL (13.0-18.0) L D 01/01/24 08:14
Hct 27.1 % (39.0-52.0) L 01/01/24 08:14
MCV 71.1 fL (80.0-94.0) L 01/01/24 08:14
MCH 23.4 pg (27.0-31.0) L 01/01/24 08:14
MCHC 32.8 g/dL (33.0-37.0) L 01/01/24 08:14
RDW 19.1 % (11.5-14.5) H 01/01/24 08:14
Plt Count 299 10^3/uL (130-400) 01/01/24 08:14
MPV 10.2 fL (7.4-10.4) 01/01/24 08:14
Abs Immat Gran (auto) 0.0 10^3/uL (0-0.05) 01/01/24 08:14
Absolute Neuts (auto) 5.1 10^3/uL (1.4-6.5) 01/01/24 08:14
Absolute Lymphs (auto) 0.5 10^3/uL (1.2-3.4) L 01/01/24 08:14
Absolute Monos (auto) 0.9 10^3/uL (0.1-0.6) H 01/01/24 08:14
Absolute Eos (auto) 0.1 10^3/uL (0-0.7) 01/01/24 08:14
Absolute Basos (auto) 0.1 10^3/uL (0-0.2) 01/01/24 08:14
Immature Gran % 0.4 % (0-0.5) 01/01/24 08:14
Neutrophils % 75.9 % (42.2-75.2) H 01/01/24 08:14
Lymphocytes % 7.2 % (20.5-51.1) L 01/01/24 08:14
Monocytes % 13.2 % (1.7-9.3) H 01/01/24 08:14
Eosinophils % 2.1 % (0-6) 01/01/24 08:14
Basophils % 1.2 % (0-2) 01/01/24 08:14
Creatinine 1.7 mg/dL (0.7-1.3) H 01/01/24 08:14
Vital Signs
Vital Signs
Temp Pulse Resp BP Pulse Ox
97.4 F 61 16 129/61 96
01/01/24 07:27 01/01/24 11:51 01/01/24 07:27 01/01/24 11:51 01/01/24 07:27
[2024-01-01 13:24] LABS: Reticulocyte Count 0.7 % (0.4-2.8)
--- NOTE | 2024-01-01 13:40 | WOUNDNOTE ---
WO RN note: Patient admitted with anemia. Patient admitted from SNF. Patient is followed by [facility] (last seen 12/09/23) and Dr. Whittington (last seen 11/18/23). Dr. Whittington's note states patient is not really a candidate for any (vascular) intervention; follow
up in 2-3 months. Patient has f/u appt later in January.
See H&P for complete history.
PMH: pacer, HF, aortic stenosis, PAD, non healing foot wound with osteomyelitis. R fem to below knee pop bypass 07/16/23, R foot wound debridement, CKD, anemia, follows [facility] for IV infusions and injections for anemia, Maddox for retention, GI bleed.
Wound Location and type/assessment: Patient admitted with: R lateral forefoot full thickness (originally to bone) chronic wound, pink with scattered yellow fibrin, moderate-large amount of light green tinged drainage. R heel small dry off white
scab, persistent blanchable red heels. Pedal pulses heard via portable Doppler. R ischial small stage 3 vs unstageable pressure injury, pink with yellow fibrin center. R anterior thigh with linear skin fissures suspect from dry skin. L groin with
small linear red laura.
Appetite: currently on clear liquids. Patient very thin.
Pressure redistribution devices in place: [employer] Accumax. Patient cannot turn self in bed. He bends his R knee making heel off loading challenging.
Plan: R lateral foot dressing changed. Waffle air overlay and patient turned to L semi side lying position with help from RN/PCT Alyson Enrique Pillekaterina between legs. Heels off bed with air chair cushion. t/c SPD and ordered Foot Waffle boots. Updated RN
Rylee Cantor.
Will confirm orders with hospitalist.
Care plan to be updated and will follow as needed. Patient to follow up at [facility] and Dr. Whittington.
Note to case management of equipment requested for discharge: Air mattress if not already in place.
--- NOTE | 2024-01-01 13:52 | WOUNDNOTE ---
R THIGH (ANTERIOR)(knee toward top of photo)
[2024-01-01 14:58] LABS: Glucose - Point of Care 250 mg/dl (70-99)
[2024-01-01] MEDS: NOVOLOG FLEXPEN-LOW RESISTANCE 3 UNITS SC (15:10)
[2024-01-01] MEDS: FERRLECIT 110 MG IV (15:12)
[2024-01-01] MEDS: FLUSH (NSS) 1 FLUSH IV (15:15)
[2024-01-01 15:31] VITALS: BMI 19.9
[2024-01-01 15:35] VITALS: BP 153/73
[2024-01-01 16:36] LABS: Glucose - Point of Care 171 mg/dl (70-99)
[2024-01-01] MEDS: NOVOLOG FLEXPEN-LOW RESISTANCE 1 UNITS SC (17:29)
[2024-01-01] MEDS: ULTRAM 50 MG PO (17:33)
[2024-01-01 19:34] VITALS: BP 126/68
[2024-01-01] MEDS: MELATONIN 6 MG PO (21:28)
[2024-01-01] MEDS: LIPITOR 40 MG PO (21:28)
[2024-01-01] MEDS: ATIVAN 1 MG PO (21:29)
[2024-01-01] MEDS: REMERON 15 MG PO (21:29)
[2024-01-01] MEDS: SENOKOT-S 2 TABLET PO (21:29)
[2024-01-01 21:37] LABS: Glucose - Point of Care 144 mg/dl (70-99)
[2024-01-01 23:11] VITALS: BP 112/84
[2024-01-02 05:27] VITALS: BMI 18.8
--- NOTE | 2024-01-02 05:29 | PTCARENOTE ---
16 Fr Maddox Catheter reinserted per order. Pt was able to tolerate procedure.
[2024-01-02 07:00] VITALS: BP 140/70
[2024-01-02 07:22] LABS: Glucose - Point of Care 111 mg/dl (70-99)
[2024-01-02 08:03] LABS: ALT (SGPT) 54 U/L (0-50); AST (SGOT) 48 U/L (17-59); Albumin 3.4 g/dl (3.5-5.0); Alkaline Phosphatase 158 U/L (38-126); Direct Bilirubin 0.7 mg/dl (0.0-0.4); GGTP 79 U/L (15-73); Total Bilirubin 0.8 mg/dl (0.2-1.3); Total Protein 6.4 g/dl (6.3-8.2)
[2024-01-02] MEDS: MIRALAX 17 GRAMS PO (08:05)
[2024-01-02] MEDS: NOVOLOG FLEXPEN-LOW RESISTANCE SC ×2 (08:05→11:55)
[2024-01-02] MEDS: APRESOLINE 50 MG PO ×3 (08:06→22:04)
[2024-01-02] MEDS: NSS (PRESERVATIVE FREE) 10 ML IV ×2 (08:07→20:18)
[2024-01-02] MEDS: LASIX 20 MG PO (08:07)
[2024-01-02] MEDS: ISORDIL 10 MG PO ×3 (08:07→22:04)
[2024-01-02] MEDS: PROTONIX IV 40 MG IV ×2 (08:07→20:18)
[2024-01-02] MEDS: FLUSH (NSS) 2 FLUSH IV (08:09)
[2024-01-02 09:14] LABS: Blood Urea Nitrogen 46 mg/dl (9-20); Calcium 8.6 mg/dl (8.4-10.2); Carbon Dioxide 21 mmol/L (22-30); Chloride 108 mmol/L (98-107); Estimated Creatinine Clearance 24 ml/min; Glucose 102 mg/dl (70-99); Potassium 3.6 mmol/L (3.5-5.1); Sodium 138 mmol/L (135-145); eGFR 36.66
[2024-01-02 09:35] LABS: Hematocrit 25.5 % (39.0-52.0); Hemoglobin 8.4 g/dL (13.0-18.0); Mean Corp Hgb Conc. 32.9 g/dL (33.0-37.0); Mean Corpuscular Hgb 23.5 pg (27.0-31.0); Mean Corpuscular Volume 71.2 fL (80.0-94.0); Mean Platelet Volume 10.1 fL (7.4-10.4); Platelet Count 261 10^3/uL (130-400); Red Blood Cell Count 3.58 10^6/uL (4.70-6.10); Red Cell Dist. Width 18.9 % (11.5-14.5); White Blood Cell Count 6.8 10^3/uL (4.8-10.8)
--- NOTE | 2024-01-02 09:42 | W.PN.GI.CBS2 ---
Addendum entered and electronically signed by Diana Silva MD 01/02/24 16:31:
I saw and examined the patient.
The FILTER WORKER's note was reviewed and I agree with the note.
Comment:1. Chronic anemia multifactorial from underlying MDS and iron deficiency anemia from chronic blood loss from prior history of GAVE with h/o may have small bowel angioectasias also. Hemoglobin improved with 1 unit of packed red blood
cells and noted input from hematology started on IV iron infusions also. given that he has no overt bleeding will hold on endoscopic workup given age and comorbidities unless he has active bleeding. Follow-up at [place] after DC with his
outpatient dishcloth folder. 2.Scheduled him for MRI for today for evaluating the pancreatic lesion noted on prior imaging but he has a pacemaker and would need cardiac clearance will likely also need to do this as outpatient with his outpatient
dishcloth folder at [place] but given his age and comorbidities and given the lesion is less than 1 cm with no worrisome features noted would hold on further workup as IP.
Original Note:
Today's Communication / Plan
-
MRI to evaluate pancreatic lesion
Assessment / Plan
-
83 y/o male with PMH of PAD, right foot wounds, HTN, HLD, DM, Heart failure, chronic kidney disease, GERD, anxiety, osteomyelitis, neurogenic bladder, right lower extremity angioplasty/stent March 2023, anemia in the past and when we saw him in
07/2023 the patient states that he had a history of a hole in his stomach that had to be repaired a few months back at either [facility] or [facility].� At that time the patient was the patient was admitted for staged procedure for
peripheral artery disease, Right femoral to below-knee popliteal artery bypass with ipsilateral spliced greater saphenous vein. This was performed on 07/16/2023.� He had bleeding in the OR and possible bypass graft flow/occlusion upon completion per
vascular surgery.� He received 3 units packed red blood cells in the OR and we were asked to evaluate for a hypoattenuating lesion seen in the pancreatic neck measuring 1.2 cm and mildly dilated pancreatic duct within the body and the tail the
pancreas on 06/23/23. Patient now was sent to the ER with abnormal labs Hgb 6.8 and generalized weakness with brown OB negative stool. Patient is poor historian. Patient has been transfused 1 unit PRBC and we are awaiting repeat labs this am. Patient
with extensive hx of anemia with GI and Heme workup at other institutions in the past. He does have a mildly elevated ALT and Alk Phos which is new. He also does have some mild nausea this am which he feels is secondary to being kept NPO and he is
diabetic, (last BS check 126 this am). He denies any abd pain but has had constipation for a couple days. Patient with iron deficiency with normal TIBC. B12 and Folate normal.
Impression:
1. Microcytic anemia
-OB negative, longstanding, stool negative for occult blood ER 12/31/22 (1700) was brown as well, on DAPT (ASA 81 mg /Plavix)
-Hx of 'hole in stomach' and told this was cause of his anemia on prior hospitalization ? [facility]. Had EGD at that time. (? January 2023) Does not recall being told of an ulcer.
-Also would follow up at [facility] for IV infusions and injections for anemia in the past as well.
2. Mildly elevated AST/Alk Phos
3. Hypoattenuating lesion is seen within the uncinate process of the pancreas, measuring 8 mm in diameter, A separate hypoattenuating lesion is seen within the pancreatic neck,measuring 1.2 cm in diameter. Mild dilation of the pancreatic duct within
the body and tail of the pancreas on CT Abd Aorta Angio W/ Run Off 06/23/23.
4. Constipation
Plan:
-Hgb 8.4 (was 8.9 yesterday)
-continue to trend Hgb, transfuse as appropriate
-Continue Pantoprazole, currently on 40 mg IV BID
-LFTs trending down, will continue to trend
-MRI abdomen ordered for further evaluation of the pancreatic lesion
-Will obtain all records from [facility], [facility] and Dr. Blankenship as patient states he was at all facilities. Also ask [facility] if they have any records. (still awaiting records)
-Continue Miralax
-Hematology consulted, to continue IV iron
-Clear liquid diet, no red
-Consider EGD, if indicated, could be done 2/ to allow for Plavix washout
Subjective
Subjective
Date of Service: January 02, 2024
No abd pain, n/v
No rectal bleeding
Objective
Data Reviewed
Laboratory Data:
Laboratory Results
01/02/24 09:22
01/02/24 08:37
Laboratory Results
Total Bilirubin Cancelled 01/02/24 08:37
AST Cancelled 01/02/24 08:37
ALT Cancelled 01/02/24 08:37
Alkaline Phosphatase Cancelled 01/02/24 08:37
Vital Signs and I&O:
Vital Signs
Temp Pulse Resp BP Pulse Ox
98.2 F 83 18 140/70 97
01/02/24 07:00 01/02/24 07:00 01/02/24 07:00 01/02/24 07:00 01/02/24 07:00
I&O
01/01/24 01/02/24 01/03/24
06:59 06:59 06:59
Intake Total 250 / 250 860 / 860
Output Total 400 / 400 770 / 770
Balance -150 / -150 90 / 90
Physical Exam
Physical Exam
GI: Soft, Non Distended, Non Tender and Normal Bowel Sounds
--- NOTE | 2024-01-02 11:09 | PN.CDI ---
CDI
- -
CDI:
Physician Documentation Request
Admit Date: 12/31/23 19:17
Dear Doctor Benigno,
Please review the following and provide your response in the progress notes.
Clinical Indicators:
Height: 5ft 7 in
Weight: 120 lb 3.2 oz
BMI:18.8
If possible, please provide an associated diagnosis related to the abnormal BMI, such as:
BMI < or = to 19
Underweight
Cachectic
- Other
Use of terms such as suspected, likely, concern for, or probable (associated with a specific diagnosis that is being evaluated, monitored, or treated as if it exists) are acceptable and can be coded in the inpatient setting, when documented at the
time of discharge.
Thank you,
Nighat Workman RN
CDI Specialist
[place] [facility]
Please use your independent medical judgment in providing your response.
--- NOTE | 2024-01-02 11:20 | CM ---
Patient seen resting in bed. Per Gastroenterology note, patient for MRI to evaluate pancreatic lesion. CM will continue to follow for discharge planning needs.
Plan; return to [facility] once medically stable.
Report: [phone], personal care unit
[2024-01-02 11:52] LABS: Glucose - Point of Care 129 mg/dl (70-99)
[2024-01-02] MEDS: DAKIN'S SOLUTION 0.125% 1/4 STRENGTH 2 ML TOPICAL (14:09)
[2024-01-02] MEDS: FERRLECIT 110 MG IV (14:14)
[2024-01-02] MEDS: FLUSH (NSS) 1 FLUSH IV (14:14)
[2024-01-02 15:00] VITALS: BP 148/88
--- NOTE | 2024-01-02 16:33 | W.PN.UPDATE ---
Update Note
Progress Note Update
Continue to monitor hemoglobin and supportive care with IV iron and transfusions as needed as outpatient with hematology. Follow-up with GI at [address] after DC. Will sign off and will be available as needed
[2024-01-02] MEDS: ProAIR HFA INHALER 2 PUFF INH (17:02)
[2024-01-02 17:26] LABS: Glucose - Point of Care 167 mg/dl (70-99)
[2024-01-02] MEDS: NOVOLOG FLEXPEN-LOW RESISTANCE 1 UNITS SC (18:08)
[2024-01-02] MEDS: ULTRAM 50 MG PO (18:08)
[2024-01-02] MEDS: ATIVAN 1 MG PO ×2 (18:11→20:19)
--- NOTE | 2024-01-02 18:32 | W.PN.HOSP.TC ---
Today's Communication/Plan
-
Resume Aspirin and Plavix
No endoscopy studies for now as per GI
Pacemaker - so no MRI abdomen at this time - will need to follow-up outpatient
Continue IV Iron
Assessment / Plan
Assessment / Plan
Physical Exam
General: Well Developed, Well Nourished and No Apparent Distress
HEENT: Normocephalic, Moist mucous membranes and Atraumatic
Respiratory: Clear
Cardiac: S1/S2 and Regular Rhythm
GI: Soft, Non Tender, Non Distended and Normal Bowel Sounds
Musculoskeletal: No Cyanosis and No Edema
Skin: Warm. Dry.
Neuro: Nonfocal/grossly intact
Assessment/Plan
# Acute on chronic microcytic anemia
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
# History of possible bleeding gastric ulcer (History of 'hole in stomach' and told this was cause of his anemia on prior hospitalization ? [facility])
-Hemoglobin 6.4 from 9.9
-Hemoccult negative
-1 unit of blood --> subsequent Hgb improved significantly
-Clear Liquids Diet
-Hold aspirin and Plavix for now --> consider resuming Aspirin tomorrow
-Plavix (last dose likely yesterday): would need 5 day wash out for any GI procedures.
-Protonix 40 IV twice daily
-Check iron studies (suggests iron deficiency anemia)
-Vitamin B12 (within normal limits)
-Folate (within normal limits)
-GI consulted, recommendations appreciated
-Given that patient has no overt bleeding, hold off on endoscopic workup given age and comorbidities unless patient has active bleeding
-Patient should follow-up at [facility] after discharge with his outpatient candy supervisor.
-No MRI for right now for evaluating the pancreatic lesion noted on prior imaging since patient has a pacemaker and would need cardiac clearance will likely also need to do this as outpatient with his outpatient candy supervisor at [facility] but
given his age and comorbidities and given the lesion is less than 1 cm with no worrisome features noted would hold on further workup as IP -- as per candy supervisor
-Appreciate GI requesting records from multiple facilities
-Follow up at [facility] for IV infusions and injections for anemia
-Consulted hematology for anemia, recommendations appreciated
-Continue IV iron
#Constipation
-Start Miralax
#Mildly elevated AST/Alk Phos
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
#Hypoattenuating lesions within the pancreas
-Will need MRI of the abdomen
-Will need to discuss case with nephrology given GFR of 39
History of AV block status post pacemaker
Chronic HFpEF
-Continue Lasix
-Continue isosorbide dinitrate
Moderate aortic stenosis
Essential hypertension
-Continue hydralazine
Peripheral arterial disease status post right femoral endarterectomy/bypass
-Underwent right superficial femoral to below-knee popliteal artery bypass with ipsilateral greater saphenous vein conduit
-Resume aspirin and Plavix
Right lower extremity foot injury status post debridement
Type 2 diabetes mellitus
-Hold saxagliptin
-Insulin sliding scale
Diabetic neuropathy
-Continue tramadol
Neurogenic bladder with chronic Maddox catheter
Hyperlipidemia
-Continue statin
CKD
-Renal function at baseline
Anxiety
-Continue lorazepam, mirtazapine
GERD/hiatal hernia
History of nonhealing lower extremity wounds
PAD
Right lower extremity angioplasty/stent March 2023
Right foot wounds
HLD
Osteomyelitis
Neurogenic bladder
Cachexia
Full code
DVT prophylaxis�SCDs
Diet: Clear Liquid Diet
Anticipated Discharge: 24 - 48 hours
Subjective/Interval History
-
Date of Service: January 02, 2024
Patient was seen and examined. He denied any new symptoms.
Objective Data
-
Labs:
Laboratory Results
01/02/24 01/02/24 01/02/24
07:00 08:37 09:22
WBC 6.8
Hgb 8.4 L
Hct 25.5 L
Plt Count 261
Sodium 138 Cancelled
Potassium 3.6 Cancelled
Chloride 108 H Cancelled
Carbon Dioxide 21 L Cancelled
BUN 46 H Cancelled
Creatinine 1.8 H Cancelled
Glucose 102 H Cancelled
Calcium 8.6 Cancelled
Total Bilirubin 0.8 Cancelled
AST 48 Cancelled
ALT 54 H Cancelled
Alkaline Phosphatase 158 H Cancelled
Vital Signs:
Vital Signs
Temp Pulse Resp BP Pulse Ox
97.9 F 78 16 148/88 95
01/02/24 15:00 01/02/24 17:05 01/02/24 17:05 01/02/24 15:00 01/02/24 17:05
I&O
01/01/24 01/02/24 01/03/24
06:59 06:59 06:59
Intake Total 250 / 250 860 / 860
Output Total 400 / 400 770 / 770
Balance -150 / -150 90 / 90
[2024-01-02] MEDS: TYLENOL 650 MG PO (20:19)
[2024-01-02 21:09] LABS: Glucose - Point of Care 145 mg/dl (70-99)
[2024-01-02] MEDS: SENOKOT-S 2 TABLET PO (22:04)
[2024-01-02] MEDS: LIPITOR 40 MG PO (22:04)
[2024-01-02] MEDS: MELATONIN 6 MG PO (22:04)
[2024-01-02] MEDS: REMERON 15 MG PO (22:10)
[2024-01-02] MEDS: JANUVIA 50 MG PO (22:10)
[2024-01-02 23:10] VITALS: BP 101/49
[2024-01-03 06:00] VITALS: BMI 19.1
[2024-01-03 07:00] VITALS: BP 131/83
[2024-01-03 08:10] LABS: Glucose - Point of Care 115 mg/dl (70-99)
[2024-01-03] MEDS: NOVOLOG FLEXPEN-LOW RESISTANCE SC ×2 (08:58→12:32)
[2024-01-03] MEDS: APRESOLINE 50 MG PO ×3 (08:59→22:09)
[2024-01-03] MEDS: NSS (PRESERVATIVE FREE) 10 ML IV ×2 (09:00→22:07)
[2024-01-03] MEDS: MIRALAX 17 GRAMS PO (09:00)
[2024-01-03] MEDS: ISORDIL 10 MG PO ×3 (09:00→22:07)
[2024-01-03] MEDS: ASPIR LOW (ENTERIC COATED) 81 MG PO (09:00)
[2024-01-03] MEDS: PLAVIX 75 MG PO (09:00)
[2024-01-03] MEDS: LASIX 20 MG PO (09:00)
[2024-01-03] MEDS: PROTONIX IV 40 MG IV ×2 (09:01→22:07)
[2024-01-03] MEDS: DAKIN'S SOLUTION 0.125% 1/4 STRENGTH 473 ML TOPICAL (09:17)
--- NOTE | 2024-01-03 09:42 | W.PN.HOSP.TC ---
Today's Communication/Plan
-
Case management waiting for [facility] about when patient can return there
Assessment / Plan
Assessment / Plan
Physical Exam
General: Well Developed, Well Nourished and No Apparent Distress
HEENT: Normocephalic, Moist mucous membranes and Atraumatic
Respiratory: Clear
Cardiac: S1/S2 and Regular Rhythm
GI: Soft, Non Tender, Non Distended and Normal Bowel Sounds
Musculoskeletal: No Cyanosis and No Edema
Skin: Warm. Dry.
Neuro: Nonfocal/grossly intact
Assessment/Plan
# Acute on chronic microcytic anemia
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
# History of possible bleeding gastric ulcer (History of 'hole in stomach' and told this was cause of his anemia on prior hospitalization ? C[facility])
-Hemoglobin 6.4 from 9.9
-Hemoccult negative
-1 unit of blood --> subsequent Hgb improved significantly
-Advance diet as tolerated: Diabetic Diet
-Resumed home Aspirin and Plavix
-Protonix 40 IV twice daily
-Continue IV iron - can switch to PO iron on discharge
-Vitamin B12 (within normal limits)
-Folate (within normal limits)
-GI consulted, recommendations appreciated
-Given that patient has no overt bleeding, hold off on endoscopic workup given age and comorbidities unless patient has active bleeding
-Patient should follow-up at [facility] after discharge with his outpatient battery container inspector.
-No MRI for right now for evaluating the pancreatic lesion noted on prior imaging since patient has a pacemaker and would need cardiac clearance will likely also need to do this as outpatient with his outpatient battery container inspector at [facility] but
given his age and comorbidities and given the lesion is less than 1 cm with no worrisome features noted would hold on further workup as IP -- as per battery container inspector
-Appreciate GI requesting records from multiple facilities
-Follow up at [facility] for IV infusions and injections for anemia
-Consulted hematology for anemia, recommendations appreciated
-Discussed case (on January 03, 2024) via [facility] with Dr. Pittman of hematology and patient is okay to discharge with Ferrous Sulfate 325 mg Q48H
-Follow-up with hematology for Aranesp
#Constipation
-Start Miralax
#Mildly elevated AST/Alk Phos
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
#Hypoattenuating lesions within the pancreas
-Follow-up outpatient
History of AV block status post pacemaker
Chronic HFpEF
-Continue Lasix
-Continue isosorbide dinitrate
Moderate aortic stenosis
Essential hypertension
-Continue hydralazine
Peripheral arterial disease status post right femoral endarterectomy/bypass
-Underwent right superficial femoral to below-knee popliteal artery bypass with ipsilateral greater saphenous vein conduit
-Continue aspirin and Plavix
Right lower extremity foot injury status post debridement
Type 2 diabetes mellitus
-Continue saxagliptin or suitable alternative
-Insulin sliding scale
Diabetic neuropathy
-Continue tramadol
Neurogenic bladder with chronic Maddox catheter
Hyperlipidemia
-Continue statin
CKD
-Renal function at baseline
Anxiety
-Continue lorazepam, mirtazapine
GERD/hiatal hernia
History of nonhealing lower extremity wounds
PAD
Right lower extremity angioplasty/stent March 2023
Right foot wounds
HLD
Osteomyelitis
Neurogenic bladder
Cachexia
Full code
DVT prophylaxis�SCDs
Diet: Diabetic Diet
Anticipated Discharge: 24 - 48 hours
Subjective/Interval History
-
Date of Service: January 03, 2024
Patient was seen and examined. Per patient's nurse, patient has not had bowel movements last night or today. No other new complaints.
Objective Data
-
Labs:
Laboratory Results
01/03/24
09:15
WBC Pending
Hgb Pending
Hct Pending
Plt Count Pending
Sodium Pending
Potassium Pending
Chloride Pending
Carbon Dioxide Pending
BUN Pending
Creatinine Pending
Glucose Pending
Calcium Pending
Total Bilirubin Pending
AST Pending
ALT Pending
Alkaline Phosphatase Pending
Vital Signs:
Vital Signs
Temp Pulse Resp BP Pulse Ox
98.6 F 84 18 131/83 99
01/03/24 07:00 01/03/24 08:59 01/03/24 07:00 01/03/24 08:59 01/03/24 07:00
I&O
01/02/24 01/03/24 01/04/24
06:59 06:59 06:59
Intake Total 860 / 860 1200 / 1200
Output Total 770 / 770 1350 / 1350
Balance 90 / 90 -150 / -150
[2024-01-03 10:26] LABS: % Basophils 0.8 % (0-2); % Eosinophils 1.7 % (0-6); % Immature Granulocytes 0.3 % (0-0.5); % Lymphocytes 4.7 % (20.5-51.1); % Monocytes 12.4 % (1.7-9.3); % Neutrophils 80.1 % (42.2-75.2); Absolute Basophils 0.1 10^3/uL (0-0.2); Absolute Eosinophils 0.2 10^3/uL (0-0.7); Absolute Lymphocytes 0.4 10^3/uL (1.2-3.4); Absolute Monocytes 1.1 10^3/uL (0.1-0.6); Absolute Neutrophils 7.1 10^3/uL (1.4-6.5); Hematocrit 26.6 % (39.0-52.0); Hemoglobin 8.5 g/dL (13.0-18.0); Mean Corpuscular Hgb 22.8 pg (27.0-31.0); Mean Corpuscular Volume 71.5 fL (80.0-94.0); Mean Platelet Volume 10.5 fL (7.4-10.4); Nucleated Red Blood Cells % 0 % (-); Platelet Count 288 10^3/uL (130-400); Red Blood Cell Count 3.72 10^6/uL (4.70-6.10); Red Cell Dist. Width 19.9 % (11.5-14.5); White Blood Cell Count 8.8 10^3/uL (4.8-10.8)
[2024-01-03 10:41] LABS: ALT (SGPT) 53 U/L (0-50); AST (SGOT) 45 U/L (17-59); Albumin 3.3 g/dl (3.5-5.0); Alkaline Phosphatase 143 U/L (38-126); Blood Urea Nitrogen 40 mg/dl (9-20); Calcium 8.9 mg/dl (8.4-10.2); Carbon Dioxide 20 mmol/L (22-30); Chloride 105 mmol/L (98-107); Estimated Creatinine Clearance 29 ml/min; Glucose 129 mg/dl (70-99); Potassium 3.6 mmol/L (3.5-5.1); Sodium 139 mmol/L (135-145); Total Bilirubin 0.9 mg/dl (0.2-1.3); Total Protein 6.4 g/dl (6.3-8.2); eGFR 45.62
[2024-01-03 12:27] LABS: Glucose - Point of Care 118 mg/dl (70-99)
[2024-01-03] MEDS: FERRLECIT 110 MG IV (14:17)
--- NOTE | 2024-01-03 14:17 | CM ---
TC to [facility] d/c today.
Left VM, await TCB.
Report: [phone], personal care unit
[2024-01-03 15:00] VITALS: BP 153/81
[2024-01-03 16:00] LABS: Erythropoietin (EPO) 140 mU/mL (4-27)
[2024-01-03] MEDS: ProAIR HFA INHALER 2 PUFF INH (16:21)
[2024-01-03 17:07] LABS: Glucose - Point of Care 178 mg/dl (70-99)
[2024-01-03] MEDS: NOVOLOG FLEXPEN-LOW RESISTANCE 1 UNITS SC (17:13)
[2024-01-03] MEDS: ULTRAM 50 MG PO (17:13)
[2024-01-03 21:37] LABS: Glucose - Point of Care 110 mg/dl (70-99)
[2024-01-03] MEDS: MELATONIN 6 MG PO (22:08)
[2024-01-03] MEDS: LIPITOR 40 MG PO (22:08)
[2024-01-03] MEDS: SENOKOT-S 2 TABLET PO (22:08)
[2024-01-03] MEDS: JANUVIA 50 MG PO (22:09)
[2024-01-03] MEDS: ATIVAN 1 MG PO (22:09)
[2024-01-03] MEDS: REMERON 15 MG PO (22:09)
[2024-01-03 23:25] VITALS: BP 102/56
[2024-01-04] MEDS: ATIVAN 1 MG PO (00:20)
[2024-01-04 06:00] VITALS: BMI 19.0
[2024-01-04 07:00] VITALS: BP 129/60
[2024-01-04 07:40] LABS: Glucose - Point of Care 96 mg/dl (70-99)
[2024-01-04] MEDS: NOVOLOG FLEXPEN-LOW RESISTANCE SC ×3 (08:20→18:10)
--- NOTE | 2024-01-04 09:41 | CM ---
Addendum entered by Zoraida Pearson 01/04/24 16:13:
Patient transferred to IMU.
Addendum entered by Zoraida Pearson 01/04/24 14:30:
[facility] updated that d/c cancelled.
Addendum entered by Zoraida Pearson 01/04/24 13:22:
Amelie updated re transport time 4:30 pm with acute care.
Addendum entered by Zoraida Pearson 01/04/24 10:57:
IMM reviewed and signed by patient.
Addendum entered by Zoraida Pearson 01/04/24 10:37:
Spoke with Kathy at [facility], she was updated that patient is for transfer back today.
Report and fax number verified.
Please call with ambulance transport time.
MD updated.
Report: [phone], personal care unit

Original Note:
Left VM at the [facility] to notify of residents pending d/c.
Await call back.
[2024-01-04] MEDS: MIRALAX 17 GRAMS PO (10:44)
[2024-01-04] MEDS: LASIX 20 MG PO (10:45)
[2024-01-04] MEDS: ASPIR LOW (ENTERIC COATED) 81 MG PO (10:45)
[2024-01-04] MEDS: ISORDIL 10 MG PO (10:45)
[2024-01-04] MEDS: NSS (PRESERVATIVE FREE) 10 ML IV ×2 (10:45→20:24)
[2024-01-04] MEDS: APRESOLINE 50 MG PO (10:46)
[2024-01-04] MEDS: DAKIN'S SOLUTION 0.125% 1/4 STRENGTH 473 ML TOPICAL (10:46)
[2024-01-04] MEDS: PROTONIX IV 40 MG IV ×2 (10:46→20:24)
[2024-01-04] MEDS: PLAVIX 75 MG PO (10:46)
[2024-01-04 12:03] LABS: Glucose - Point of Care 124 mg/dl (70-99)
--- NOTE | 2024-01-04 13:17 | W.PN.HOSP.TC ---
Addendum entered and electronically signed by Eddie Pelaez MD 01/04/24 16:53:
CTA Head and Neck ordered, neurology will see.
Addendum entered and electronically signed by Eddie Pelaez MD 01/04/24 15:36:
CT Head was negative. Okay to continue Aspirin and Plavix per Dr. Black (neurology). Monitor in IMU overnight due to concerns over labile blood pressure.
Addendum entered and electronically signed by Eddie Pelaez MD 01/04/24 15:12:
Spoke to cardiology and neurology via [place] [facility]. Neurology will look at CT Head and look into possible seizure as a cause, and cardiology said that patient has a pacemaker, so the fall is likely not cardiogenic his device will need to be
interrogated by the nurses or tomorrow by cardiology, continue cardiac telemetry monitoring, echocardiogram for tomorrow, since patient has not had an echocardiogram done since permanent pacemaker implantation on 07/21/23. Cardiology will officially
see him in consultation tomorrow.
Original Note:
Today's Communication/Plan
-
Fall earlier today
CT Head
CXR
Echocardiogram
Labile Blood Pressure
Transfer to IMU
Repeat labs were checked now, and repeat for this evening
Consulting Cardiology and Neurology
Assessment / Plan
Assessment / Plan
Physical Exam
General: Well Developed, Well Nourished and No Apparent Distress
HEENT: Normocephalic, Moist mucous membranes and Atraumatic
Respiratory: CTAB.
Cardiac: S1/S2 and Regular Rhythm
GI: Soft, Non Tender, Non Distended and Normal Bowel Sounds
Musculoskeletal: No Cyanosis and No Edema
Skin: Warm. Dry.
Neuro: PERRL. Less responsive than baseline, able to follow some basic commands including squeezing his fingers bilaterally.
Assessment/Plan
# Acute on chronic microcytic anemia
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
# History of possible bleeding gastric ulcer (History of 'hole in stomach' and told this was cause of his anemia on prior hospitalization ? [facility])
-Hemoglobin 6.4 from 9.9
-1 unit of blood --> subsequent Hgb improved significantly --> now Hgb 9.0
-Hemoccult negative
-Diet advanced to Diabetic Diet
-Resumed home Aspirin and Plavix, and Hgb has remained stable since then
-Protonix 40 IV twice daily
-Continue IV iron - can switch to PO iron on discharge
-Vitamin B12 (within normal limits)
-Folate (within normal limits)
-GI consulted, recommendations appreciated
-Given that patient has no overt bleeding, hold off on endoscopic workup given age and comorbidities unless patient has active bleeding
-Patient should follow-up at [facility] after discharge with his outpatient semiconductor manufacturing technician.
-No MRI for right now for evaluating the pancreatic lesion noted on prior imaging since patient has a pacemaker and would need cardiac clearance will likely also need to do this as outpatient with his outpatient semiconductor manufacturing technician at [facility] but
given his age and comorbidities and given the lesion is less than 1 cm with no worrisome features noted would hold on further workup as IP -- as per semiconductor manufacturing technician
-Appreciate GI requesting records from multiple facilities
-Follow up at [facility] for IV infusions and injections for anemia
-Consulted hematology for anemia, recommendations appreciated
-Discussed case (on January 03, 2024) via [place] [facility] with Dr. Pittman of hematology and patient is okay to discharge with Ferrous Sulfate 325 mg Q48H
-Follow-up with hematology for Aranesp
#Fall on January 04, 2024
-Fall was unwitnessed
-Fall may have been associated with syncope and could be cardiac vs. mechanical vs. seizure vs. hypotension vs. other
-Right head laceration and multiple skin tears from fall: nurses will contact wound care/ER staff to suture
-Wound/ostomy care
-STAT CT HEAD
-STAT CXR as left clavicle appears to be raised
-BP appears to be fluctuating - transfer to IMU for closer monitoring
-Recheck labs on evening of January 04, 2024
-Check troponins
-Echo
-EKG results noted concerning for accelerated junctional rhythm with PVCs
-Will consult cardiology
-Will consult neurology
#Constipation
-Continue Miralax
#Mildly elevated AST/Alk Phos
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
#Hypoattenuating lesions within the pancreas
-Follow-up outpatient
History of AV block status post pacemaker
Chronic HFpEF
-Continue Lasix
-Continue isosorbide dinitrate
Moderate aortic stenosis
Essential hypertension
-Continue hydralazine
Peripheral arterial disease status post right femoral endarterectomy/bypass
-Underwent right superficial femoral to below-knee popliteal artery bypass with ipsilateral greater saphenous vein conduit
-Continue aspirin and Plavix
Right lower extremity foot injury status post debridement
Type 2 diabetes mellitus
-Continue saxagliptin or suitable alternative
-Insulin sliding scale
Diabetic neuropathy
-Continue tramadol
Neurogenic bladder with chronic Maddox catheter
Hyperlipidemia
-Continue statin
CKD
-Renal function at baseline
Anxiety
-Continue lorazepam, mirtazapine
GERD/hiatal hernia
History of nonhealing lower extremity wounds
PAD
Right lower extremity angioplasty/stent March 2023
Right foot wounds
HLD
Osteomyelitis
Neurogenic bladder
Cachexia
Full code
DVT prophylaxis�SCDs
Diet: Diabetic Diet
Unwitnessed fall with possible cardiogenic vs. seizure vs. hypotension causes requiring transfer to the IMU and additional studies is a high-risk encounter.
Anticipated Discharge: > 48 hours
Subjective/Interval History
-
Date of Service: January 04, 2024
Patient was seen and examined. He reported he was doing great this morning, and denied any new symptoms. Later in the day, in the afternoon, patient's nurse reported that patient had an unwitnessed fall, hitting his head on the heater, and resulting
in a laceration under his right eyebrow, and multiple new skin tears, he less responsive than his baseline. Rapid response was called, patient's SBP dropped into the 80s but improved to the 130s shortly after. Patient's family was present outside
patient's room, and patient's family was updated.
Objective Data
-
Vital Signs:
Vital Signs
Temp Pulse Resp BP Pulse Ox
97.6 F 97 18 113/69 94
01/04/24 07:00 01/04/24 10:46 01/04/24 07:00 01/04/24 10:46 01/04/24 07:00
I&O
01/03/24 01/04/24 01/05/24
06:59 06:59 06:59
Intake Total 1200 / 1200 720 / 720
Output Total 1350 / 1350 1100 / 1100
Balance -150 / -150 -380 / -380
[2024-01-04 14:10] LABS: Hematocrit 27.8 % (39.0-52.0); Mean Corp Hgb Conc. 32.4 g/dL (33.0-37.0); Mean Corpuscular Hgb 23.4 pg (27.0-31.0); Mean Corpuscular Volume 72.2 fL (80.0-94.0); Mean Platelet Volume 9.8 fL (7.4-10.4); Platelet Count 289 10^3/uL (130-400); Red Blood Cell Count 3.85 10^6/uL (4.70-6.10); Red Cell Dist. Width 20.6 % (11.5-14.5); White Blood Cell Count 8.7 10^3/uL (4.8-10.8)
[2024-01-04 14:22] LABS: Potassium 3.6 mmol/L (3.5-5.1)
[2024-01-04 14:23] LABS: Blood Urea Nitrogen 34 mg/dl (9-20); Calcium 8.6 mg/dl (8.4-10.2); Carbon Dioxide 20 mmol/L (22-30); Chloride 108 mmol/L (98-107); Estimated Creatinine Clearance 27 ml/min; Glucose 153 mg/dl (70-99); Magnesium 2.3 mg/dl (1.6-2.3); Sodium 137 mmol/L (135-145); eGFR 42.22
[2024-01-04 14:32] LABS: Glucose - Point of Care 149 mg/dl (70-99)
--- NOTE | 2024-01-04 16:28 | RR ---
A Rapid Response was called on this patient, please see Rapid Response form.
at approximately 1415, a visitor that was in 416-1 reported that 416-2 just fell out of bed. when nursing staff arrived to pt, his head was against the radiator and was bleeding. pt was responsive at this time and was oriented to self (baseline). we
applied pressure to head laceration and we got pt back up into bed. pt pupils were reactive and pt direct selling counselor was strong. pt presented more drowsy than usual. pt left clavicle appeared to be raised and has a skin tear to his right pointer finger and a
skin tear to right shoulder. MD notified of findings with pt. pt BP dropped from 108/70 to 88/69 and pt was not as responsive, MD notified and rapid response called. MD came to pt bedside and STAT imaging ordered. MD ordered pt to be transferred to
IMU for higher level of care to be monitored more closely overnight.
[2024-01-04] MEDS: ISORDIL PO ×2 (16:43→23:05)
[2024-01-04] MEDS: APRESOLINE PO ×2 (16:43→23:05)
[2024-01-04 16:56] VITALS: BP 131/51
--- NOTE | 2024-01-04 17:00 | PTCARENOTE ---
Patient received from 4W. Patient somewhat responsive but unable to clearly understand what he is saying. Patient with new skin tear to right shoulder and right finger as well as laceration to right upper eyebrow. Bleeding uncontrolled with steri
strips and pressure dressing, needing changing frequently. Hospitalist in contact with surgery regarding laceration, orders obtained for necessary medications. VSS however somewhat tachypneic. V-paced on the monitor. Oriented to room to best
ability. Call mock in reach.
[2024-01-04 17:43] LABS: % Basophils 0.8 % (0-2); % Eosinophils 0.9 % (0-6); % Immature Granulocytes 0.4 % (0-0.5); % Lymphocytes 4.5 % (20.5-51.1); % Monocytes 10.7 % (1.7-9.3); % Neutrophils 82.7 % (42.2-75.2); Absolute Basophils 0.1 10^3/uL (0-0.2); Absolute Eosinophils 0.1 10^3/uL (0-0.7); Absolute Lymphocytes 0.4 10^3/uL (1.2-3.4); Absolute Monocytes 0.8 10^3/uL (0.1-0.6); Absolute Neutrophils 6.4 10^3/uL (1.4-6.5); Hematocrit 27.1 % (39.0-52.0); Hemoglobin 8.9 g/dL (13.0-18.0); Mean Corp Hgb Conc. 32.8 g/dL (33.0-37.0); Mean Platelet Volume 9.7 fL (7.4-10.4); Nucleated Red Blood Cells % 0.4 % (-); Platelet Count 280 10^3/uL (130-400); Red Blood Cell Count 3.87 10^6/uL (4.70-6.10); Red Cell Dist. Width 20.6 % (11.5-14.5); White Blood Cell Count 7.8 10^3/uL (4.8-10.8)
[2024-01-04] MEDS: ULTRAM PO (17:43)
[2024-01-04 17:56] LABS: INR 1.54; PT 18.3 Sec (11.4-14.6)
[2024-01-04 17:59] LABS: Lactic Acid 1.2 mmol/L (0.7-2.0)
[2024-01-04 18:00] VITALS: BP 117/46
[2024-01-04 18:00] LABS: ALT (SGPT) 48 U/L (0-50); AST (SGOT) 51 U/L (17-59); Albumin 3.6 g/dl (3.5-5.0); Alkaline Phosphatase 156 U/L (38-126); Blood Urea Nitrogen 34 mg/dl (9-20); Calcium 8.6 mg/dl (8.4-10.2); Carbon Dioxide 20 mmol/L (22-30); Chloride 108 mmol/L (98-107); Creatine Phosphokinase 121 U/L (55-170); Estimated Creatinine Clearance 29 ml/min; Glucose 130 mg/dl (70-99); Sodium 137 mmol/L (135-145); Total Bilirubin 0.8 mg/dl (0.2-1.3); Total Protein 6.8 g/dl (6.3-8.2); eGFR 45.62
[2024-01-04 18:01] LABS: Ammonia < 9 umol/L (9-30)
[2024-01-04 18:11] LABS: Troponin I 0.031 ng/ml
[2024-01-04 18:17] LABS: Potassium 3.7 mmol/L (3.5-5.1)
[2024-01-04 18:20] LABS: Glucose - Point of Care 140 mg/dl (70-99)
[2024-01-04] MEDS: FERRLECIT 110 MG IV (19:42)
[2024-01-04 20:00] VITALS: BP 136/75
--- NOTE | 2024-01-04 20:24 | CON.GS ---
Consultation
-
Date/Time Consultation Requested: 01/04/2024 @ 15:53
Date/Time Consultation Performed: 01/04/2024 @ 17:00
Requesting Provider: Eddie Pelaez MD
Performing Provider: Guru Chew MD
Reason for Consultation: Right lilibeth-orbital laceration
Medical History
-
Chief Complaint: Bleeding laceration
History of Present Illness:
83 yo male on aspirin and Plavix, who apparently fell out of bed earlier today sustaining a laceration to the right lateral eyebrow. The laceration continues to bleed despite pressure. He was admitted for anemia and was getting ready for discharge.
Also noted was an asymmetrical clavicle (L>R). He is currently in the IMU and answers questions. He reports no pain when pressing on the clavicles.
Past Medical History
Past Medical History: Arrhythmias (AV block), CHF, HTN, Hypercholesterolemia, NIDDM, Renal Failure, Valvular Disease (moderate aortic stenosis) and Other (PVD; neurogenic bladder with chronic Maddox; osteomyelitis)
Past Surgical History: Other (right femoral endarterectomy, cataracts)
Social History
Tobacco: Non-Smoker
Alcohol: None
Family History
Family History: Reviewed & Not Pertinent
Allergies / Home Medications
Allergy/AdvReac Type Severity Reaction Status Date / Time
No Known Allergies Allergy Verified 12/31/23 13:57
Medication Instructions Recorded Confirmed Type
aspirin 81 mg tablet,delayed 81 mg PO DAILY Blood Clot 06/23/23 12/31/23 History
release Prevention/Tx
clopidogrel 75 mg tablet 75 mg PO DAILY Blood Clot 06/23/23 12/31/23 History
Prevention/Tx
furosemide 20 mg tablet 20 mg PO DAILY Fluid 06/23/23 12/31/23 History
Retention/Swelling
isosorbide dinitrate 10 mg tablet 10 mg PO TID Blood Pressure 06/23/23 12/31/23 History
lorazepam 1 mg tablet (Ativan) 1 mg PO HS anxiety 06/23/23 12/31/23 History
magnesium hydroxide 400 mg/5 mL 30 ml PO DAILYPRN PRN constipation 06/23/23 12/31/23 History
oral suspension (Milk of Magnesia)
pantoprazole 40 mg tablet,delayed 40 mg PO DAILY Gastrointestinal 06/23/23 12/31/23 History
release Issue
tramadol 50 mg tablet 50 mg PO Q8HPRN PRN moderate pain 06/23/23 12/31/23 History
acetaminophen 325 mg tablet 650 mg PO Q4HPRN PRN mild pain 07/03/23 12/31/23 History
mirtazapine 15 mg tablet 15 mg PO HS Mental Health/Anxiety 07/03/23 12/31/23 History
sennosides 8.6 mg-docusate sodium 2 tab PO HS Constipation 07/03/23 12/31/23 History
50 mg tablet (Stimulant Laxative
Plus)
hydralazine 25 mg tablet 50 mg PO TID #90 tabs 07/29/23 12/31/23 Rx
albuterol sulfate 90 mcg/actuation 2 puff inhalation R QIDPRN PRN sob 12/31/23 12/31/23 History
aerosol inhaler (ProAir HFA)
atorvastatin 40 mg tablet (Lipitor) 40 mg PO HS High Cholesterol 12/31/23 12/31/23 History
lorazepam 1 mg tablet 1 mg PO Q8HPRN PRN anxiety 12/31/23 12/31/23 History
melatonin 3 mg tablet 6 mg PO HS Sleep 12/31/23 12/31/23 History
ondansetron HCl 4 mg tablet 4 mg PO Q8HPRN PRN nausea 12/31/23 12/31/23 History
saxagliptin 5 mg tablet (Onglyza) 5 mg PO HS Diabetes 12/31/23 12/31/23 History
tramadol 50 mg tablet 50 mg PO QPM Pain 12/31/23 12/31/23 History
Review of Systems
-
Unable to obtain full review of systems at this time due to: Acuity
History Source: Patient
A 10 point review of systems was completed, and was negative except as per HPI.
Physical Exam
Vital Signs
Temp Pulse Resp BP Pulse Ox
98.9 F 97 18 113/69 94
01/04/24 19:52 01/04/24 10:46 01/04/24 07:00 01/04/24 10:46 01/04/24 07:00
01/03/24 01/04/24 01/05/24
06:59 06:59 06:59
Actual Weight 55.14 kg 54.998 kg
Body Mass Index (BMI) 19.0
Lab Results
WBC 7.8 10^3/uL (4.8-10.8) 01/04/24 17:33
Hgb 8.9 g/dL (13.0-18.0) L 01/04/24 17:33
Hct 27.1 % (39.0-52.0) L 01/04/24 17:33
Plt Count 280 10^3/uL (130-400) 01/04/24 17:33
Abs Immat Gran (auto) 0.0 10^3/uL (0-0.05) 01/04/24 17:33
Neutrophils % 82.7 % (42.2-75.2) H 01/04/24 17:33
Physical Exam
General: Well Developed and No Apparent Distress
HEENT: Other (2cm superficial laceration of the right lateral eyebrow. No active bleeding; EOMI; nontender)
GI: Soft and Non Tender
Musculoskeletal: Other (left clavicle is more prominent than the right but there is no ecchymosis and there is no tenderness/crepitus)
Neuro: Awake
Data Reviewed
-
Radiology: Image Personally Visualized and interpreted, Report Reviewed by me, Discussed with Nurse and Discussed with Patient
CT Scan: Image Personally Visualized and interpreted, Report Reviewed by me, Discussed with Nurse and Discussed with Patient
Labs: Labs Reviewed by me and Discussed with Patient
Total Time Spent with Patient (in minutes): 28
Assessment / Plan
-
Superficial laceration to the right eyebrow with no active bleeding or apparent head injury.� The wound was cleansed and closed with skin glue with good approximation.� With regard to the left clavicle abnormality, I suspect that is chronic and no
further workup is needed. Will follow as needed
[2024-01-04 20:51] LABS: Hematocrit 26.8 % (39.0-52.0); Hemoglobin 8.7 g/dL (13.0-18.0); Mean Corp Hgb Conc. 32.5 g/dL (33.0-37.0); Mean Corpuscular Hgb 23.4 pg (27.0-31.0); Mean Platelet Volume 9.9 fL (7.4-10.4); Platelet Count 257 10^3/uL (130-400); Red Blood Cell Count 3.72 10^6/uL (4.70-6.10); Red Cell Dist. Width 20.6 % (11.5-14.5); White Blood Cell Count 8.2 10^3/uL (4.8-10.8)
[2024-01-04 21:04] LABS: Blood Urea Nitrogen 35 mg/dl (9-20); Calcium 8.8 mg/dl (8.4-10.2); Carbon Dioxide 22 mmol/L (22-30); Chloride 105 mmol/L (98-107); Estimated Creatinine Clearance 27 ml/min; Glucose 115 mg/dl (70-99); Magnesium 2.2 mg/dl (1.6-2.3); Potassium 3.8 mmol/L (3.5-5.1); Sodium 139 mmol/L (135-145); eGFR 42.22
[2024-01-04 21:18] LABS: Troponin I 0.035 ng/ml
[2024-01-04 23:00] VITALS: PULSE 2; PULSE 89
[2024-01-04] MEDS: ATIVAN PO (23:05)
[2024-01-04] MEDS: JANUVIA PO (23:06)
[2024-01-04] MEDS: LIPITOR PO (23:06)
[2024-01-04] MEDS: SENOKOT-S PO (23:06)
[2024-01-04] MEDS: REMERON PO (23:06)
[2024-01-04] MEDS: MELATONIN PO (23:06)
[2024-01-04 23:09] VITALS: BP 154/65
[2024-01-04] MEDS: ATIVAN 0.5 MG IV (23:14)
[2024-01-04] MEDS: NSS (PRESERVATIVE FREE) 0.25 ML IV (23:15)
[2024-01-05] VITALS (15 sets, daily range): BP systolic 124–166; BP diastolic 50–114; PULSE 2–88; BMI 17.9
--- NOTE | 2024-01-05 00:23 | PTCARENOTE ---
Rec'd pt at change of shift from previous RN. Pt c/o SOB, O2 placed for pt comfort. Continuing SOB, INSTRUCTIONAL MATERIAL DIRECTOR Karyn placed order for bipap. Swallowing assessed by this RN and previous RN. Pt coughing with oral intake, wet/gurgly voice quality, excessive
throat clearing. INSTRUCTIONAL MATERIAL DIRECTOR notified. Order placed for speech eval. This RN to hold PO intake until speech eval. Pt AAOx3, anxious. Wounds assessed and re-dressed, see documentation. Call mock placed within reach
--- NOTE | 2024-01-05 03:11 | PTCARENOTE ---
Pt pulled bipap off, continues with complaints of SOB. SaO2 maintained 99% on 2L O2 for comfort. Continues with weak, wet cough and excessive throat clearing. L hand and L shoulder dressings changed again d/t saturated with sanguinous drainage.
[2024-01-05] MEDS: MORPHINE SULFATE 1 MG IV (03:53)
[2024-01-05] MEDS: ProAIR HFA INHALER 2 PUFF INH (04:19)
--- NOTE | 2024-01-05 08:02 | CON.CAR ---
Addendum entered and electronically signed by CLAYTON Cardoza 01/05/24 11:57:
Abnormal troponin, likely nonischemic myocardial injury in the setting of aortic valve disease
-No complaints of chest pain
-EKG stable
-Trend to peak
Addendum entered and electronically signed by Tyrone Bhatti MD 01/05/24 09:46:
I saw and examined the patient.
The STATE FEDERAL RELATIONS DEPUTY DIRECTOR's note was reviewed and I agree with the note.
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
disease, iron deficiency anemia, neurogenic bladder requiring Maddox catheter, and osteomyelitis with nonhealing wounds presented to the emergency department with a chief complaint of weakness.� He was found to have acute on chronic microcytic
anemia.� He received a blood transfusion.� Cardiology was consulted after the patient was found on the floor.�He cannot provide a history as is comfortable and calm in the bed but doens't open his eyes to stimulation. He is chronically ill
appearing with diffuse ecchymosis. Lungs are cta, rrr, 1/6 murmur in the rusb tele without significant abnormality. PPM interrogation personally reviewed and has no arrhythmia. It is also functioning normally. His weight is down from typical, but
doesn't change positions on his own to suggest orthostasis as a source. Ongoing evaluation of source of fall.
I will sign off but can return at your request.
Original Note:
Consultation
Consultation Request
Date/Time Consultation Requested: 01/04/24 15:00
Date/Time Consultation Performed: 01/05/24 08:00
Requesting Provider: Dr. Pelaez
Performing Provider: CLAYTON Gimenez for Dr. Bhatti
Reason for Consultation: Unwitness fall
Medical History
-
Chief Complaint: Weakness
History of Present Illness:
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
chronic kidney disease, iron deficiency anemia, neurogenic bladder requiring Maddox catheter, and osteomyelitis with nonhealing wounds presented to the emergency department with a chief complaint of weakness. He was found to have acute on chronic
microcytic anemia. He received a blood transfusion. Cardiology was consulted after the patient was found on the floor. He was awake and alert. He was found to have a skin tear. A rapid response was called. Neurology consult placed. No acute
findings by head/neck CTA. Chest x-ray stable. Cardiology was consulted for concern for cardiac etiology. Per primary service, EKG with junctional rhythm. Per my review, EKG with poor data quality, ventricular paced complexes, PACs, and a rate
of 97. His baseline is orientation to self. He resides at the [facility].
Due to his baseline dementia, he is unable to participate in this HPI.
Past Medical History
Past Medical History: CHF, GERD, HTN, NIDDM, Renal Failure (CKD3) and Other (PAD, iron deficiency anemia)
Social History
Tobacco: Non-Smoker
Alcohol: None
Drug: None
Employment: Retired
Family History
Family History: Reviewed & Not Pertinent
Allergies / Home Medications
Allergy/AdvReac Type Severity Reaction Status Date / Time
No Known Allergies Allergy Verified 12/31/23 13:57
Medication Instructions Recorded Confirmed Type
aspirin 81 mg tablet,delayed 81 mg PO DAILY Blood Clot 06/23/23 12/31/23 History
release Prevention/Tx
clopidogrel 75 mg tablet 75 mg PO DAILY Blood Clot 06/23/23 12/31/23 History
Prevention/Tx
furosemide 20 mg tablet 20 mg PO DAILY Fluid 06/23/23 12/31/23 History
Retention/Swelling
isosorbide dinitrate 10 mg tablet 10 mg PO TID Blood Pressure 06/23/23 12/31/23 History
lorazepam 1 mg tablet (Ativan) 1 mg PO HS anxiety 06/23/23 12/31/23 History
magnesium hydroxide 400 mg/5 mL 30 ml PO DAILYPRN PRN constipation 06/23/23 12/31/23 History
oral suspension (Milk of Magnesia)
pantoprazole 40 mg tablet,delayed 40 mg PO DAILY Gastrointestinal 06/23/23 12/31/23 History
release Issue
tramadol 50 mg tablet 50 mg PO Q8HPRN PRN moderate pain 06/23/23 12/31/23 History
acetaminophen 325 mg tablet 650 mg PO Q4HPRN PRN mild pain 07/03/23 12/31/23 History
mirtazapine 15 mg tablet 15 mg PO HS Mental Health/Anxiety 07/03/23 12/31/23 History
sennosides 8.6 mg-docusate sodium 2 tab PO HS Constipation 07/03/23 12/31/23 History
50 mg tablet (Stimulant Laxative
Plus)
hydralazine 25 mg tablet 50 mg PO TID #90 tabs 07/29/23 12/31/23 Rx
albuterol sulfate 90 mcg/actuation 2 puff inhalation R QIDPRN PRN sob 12/31/23 12/31/23 History
aerosol inhaler (ProAir HFA)
atorvastatin 40 mg tablet (Lipitor) 40 mg PO HS High Cholesterol 12/31/23 12/31/23 History
lorazepam 1 mg tablet 1 mg PO Q8HPRN PRN anxiety 12/31/23 12/31/23 History
melatonin 3 mg tablet 6 mg PO HS Sleep 12/31/23 12/31/23 History
ondansetron HCl 4 mg tablet 4 mg PO Q8HPRN PRN nausea 12/31/23 12/31/23 History
saxagliptin 5 mg tablet (Onglyza) 5 mg PO HS Diabetes 12/31/23 12/31/23 History
tramadol 50 mg tablet 50 mg PO QPM Pain 12/31/23 12/31/23 History
Review of Systems
-
Unable to obtain full review of systems at this time due to: Dementia
Physical Exam
Vital Signs
Temp Pulse Resp BP Pulse Ox
99.5 F 92 11 129/51 99
01/05/24 05:51 01/05/24 06:00 01/05/24 06:00 01/05/24 06:00 01/05/24 04:19
Lab Results
01/04/24 20:31
01/04/24 20:31
Troponin I 0.050 ng/ml H* 01/05/24 05:39
Physical Exam
General: Well Developed, No Apparent Distress and Comfortable
HEENT: Normocephalic and Anicteric
Respiratory: Clear and Non Labored Respirations
Cardiac: S1/S2, Regular Rhythm and Murmur (II/)
Breast: Deferred by me
GI: Soft, Non Tender, Non Distended and Normal Bowel Sounds
Rectal: Deferred by Provider
Genito-urinary: No Costovertebral Tender
Musculoskeletal: No Clubbing, No Cyanosis and No Edema
Skin: Warm and Dry
Neuro: Other (Restless, confused)
Hematologic/Lymphatic: No Lymphadenopathy
Psych: Confused
Impression / Plan
-
Fall, unwitnessed, 01/04/23 ~16:00
-Found next to bed on floor
-Medtronic device to be interrogated, no arrhythmia
-Prior EKG with poor data quality, update
-Unable to obtain orthostatic vital sign as patient cannot stand and requires two-person assist at his baseline
HFpEF, chronic, he does not appear to be in acute, decompensated heart failure
Aortic stenosis, moderate, peak/mean 37/21mmHg, ASA 1.0cm2
GERD
Iron deficiency anemia, acute on chronic, s/p transfusion
PAD, on DAPT, per Vascular
HTN
HLD
Neurogenic bladder with chronic Maddox
--- NOTE | 2024-01-05 08:50 | EEG.RPT ---
Electroencephalogram Report
Recording
Date of EE01/05/24
Type of EEG: Routine
Length of EEG recordin minutes
Done with Video Recording: Yes
Patient Status: Inpatient
Recording Conditions: Awake, Drowsy and Asleep
Hyperventilation Performed: No
Photic Stimulation Performed: Yes
Report
GREATER THAN 1 HOUR EEG REPORT
GREATER THAN 1 HOUR EEG INTERPRETATION:
Moderately abnormal EEG for age in wakefulness through stage 2 sleep due to diffuse bihemispheric slowing
CLINICAL CORRELATION:
Although normative values not been established for a person of this advanced age the patient�s symmetry of the background suggests that this study was suggestive of mild bihemispheric diffuse cortical dysfunction without focal abnormality. Of note
was that normal sleep structures were seen, with apneas. No seizures were recorded.
Clinical correlation is advised.
METHODS:
A 21 channel digitized electroencephalogram (EEG) was performed at the bedside. The 10/20 international system of electrode placement was used with ECG and lateral/vertical eye movements recorded. Persyst quantitative EEG analysis was performed.
QUALITY OF STUDY:
Fair-good
ELECTROENCEPHALOGRAPHER IMPRESSION(S):
Background
Amplitude: Unremarkable
Anterior-Posterior Organization: Fair
Maximum: Theta, usually delta
Asymmetry: None
Sleep
Drowsiness present
Stage 2 sleep recorded
Photic Stimulation
Failed to activate the record
ECG
Normal sinus rhythm
[2024-01-05 09:10] LABS: Glucose - Point of Care 92 mg/dl (70-99)
[2024-01-05] MEDS: NSS (PRESERVATIVE FREE) 10 ML IV ×2 (10:34→19:37)
[2024-01-05] MEDS: PROTONIX IV 40 MG IV ×2 (10:34→19:37)
[2024-01-05] MEDS: NOVOLOG FLEXPEN-LOW RESISTANCE SC ×4 (10:34→18:26)
--- NOTE | 2024-01-05 10:56 | CON.NEURO4 ---
Consultation - Neurology 4
-
CONSULTING PHYSICIAN: Dori Black
REFERRING PHYSICIAN: Hospitalist
DICTATED BY: Dori Black
DATE/TIME OF REQUEST: 01/04/24
DATE/TIME OF CONSULTATION: 01/05/24
Reason for Consultation: Fall, concern for seizure, head injury
History of Present Illness:
Patient is an 83-year-old male with a past medical history of peripheral arterial disease, hypertension, CKD, myelodysplastic syndrome, history of GI bleed and gastric AVM presented to hospital with generalized weakness and dyspnea. He was found
to have anemia and there has been suspicion for GI bleed and did receive blood transfusion. He has been maintained on aspirin and clopidogrel. Patient had a fall out of bed that was unwitnessed resulting in minor abrasion and contusion to the head
and scalp. There was change in mental status with greater lethargy compared to baseline. At baseline patient with some mumbling speech but conversant with hospitalist. There is no overt seizure activity that have been seen and no previous history
of seizure, CK level following the event was normal. CT head noncontrast and CTA of the head and neck showed no significant abnormalities.
Patient at this time has no complaint of headache.
Past Medical History: HFpEF, multifactorial anemia, CKD, myelodysplastic syndrome, GI bleed, history gastric AVM's, neurogenic bladder with indwelling catheter, hypertension, hyperlipidemia, DMII, diabetic neuropathy
Surgical History: RLE angioplasty and stent, right femoral endarterectomy, pacemaker
Family History: Non-contributory
Social History: Retired, no tobacco alcohol or recreational drugs
Allergies: No known drug allergies
Review of Symptoms:
Patient denies any fever, headache, chest pain, shortness of breath, GI or symptoms.
Physical Exam:
Elderly man no acute distress appears chronically ill, minor head trauma with abrasion no ecchymosis to the eyes ears or mastoid, dry mucous membranes heart rate regular breathing unlabored abdomen soft nontender no lower extremity edema
Neurologic Examination:
Patient is awake and alert, he answers simple questions, obeys simple commands consistently, difficulty with multistep commands, not fully oriented to the date does understand he is in the hospital.
Pupils are 3 mm equal round react light bilaterally extraocular's are full visual kahn are full speech is mildly dysarthric face is symmetric tongue is midline
Patient has increased tone of the limbs bilaterally in a symmetric manner most consistent with rigidity noted more in the arms and the legs, patient shows 4/5 strength of shoulder abduction arm flexion hip flexion with no motor asymmetry seen.
Withdrawal to noxious stimulation throughout
Reflexes unobtainable throughout
Ataxia finger-nose movement
Gait deferred
Neuro Imaging: No acute abnormality of CT head or CTA head/neck
Impressions
1. Most likely a mechanical fall and concussion resulting in increased confusion. Patient does have evidence of chronic neuropathy and overall frailty from complex medical history contributing to gait and balance dysfunction. Little evidence
that is suspicious for seizure, EEG and CK were normal. CT head and CTA of the head and neck have not shown any hemorrhage, contusion, or significant vessel occlusion and this along with patient's examination not suggestive of ischemic stroke
Recommendations:
1. No indication for chronic antiseizure medications
2. No indication from neurologic standpoint of a need to change chronic antiplatelet medications
3. Neurologic checks, NIH scales not necessary
4. Minimize sedating medications
5. No further neurologic workup recommended
Discussed patient care with: Patient
--- NOTE | 2024-01-05 12:12 | PTOTSP ---
Speech Therapy Initial Eval
Moderate/severe oral and suspected pharyngeal dysphagia. Increased work of breathing/fatiguing with progression of PO trials. Overt s/sx of aspiration with thin liquids by tsp.
1. Continue NPO
2. Allow critical meds crushed into apple sauce
3. Oral care with suction as needed
4. Allow single ice chips sparingly (<5 per hr) with RN supervision. Stop if coughing.
5. Consider ENT consult r/o vocal pathology
6. PULL OVER following; reassess swallow at bedside determine if/when further instrumental testing is indicated.
[2024-01-05 13:12] LABS: Glucose - Point of Care 89 mg/dl (70-99)
--- NOTE | 2024-01-05 14:25 | WOUNDNOTE ---
[facility] RN Note: consulted for new skin tears. R index finger with small dermal skin tear was bleeding earlier but has subsided. Dressing changed. R forearm with small scab (looks old), silicone foam maintained. R shoulder with deep dermal skin
tear/abrasion, pink with white fibrin, Vaseline gauze and silicone foam changed. Foot Waffle boots on. R ischial pressure injury almost healed. Sacrum is intact. Patient turned to L semi side lying position with help from NDAIA Shultz. Patient is on
a [facility] air bed. RN mentioned physician to discuss possible comfort care with family. Care plan to be updated. Will follow as needed.
[2024-01-05] MEDS: FERRLECIT 110 MG IV (14:46)
--- NOTE | 2024-01-05 15:35 | WOUNDNOTE ---
[facility] RN Note: Patient seen around 14:25. Re-consulted for new skin tears from fall 01/04/24. R index finger with small dermal skin tear was bleeding earlier but has subsided. Dressing changed. R forearm with small scab (looks old), silicone foam
maintained. R shoulder with deep dermal skin tear/abrasion, pink with white fibrin, Vaseline gauze and silicone foam changed. R eyebrow laceration approximated with glue dry and intact (See Dr. Chew's note yesterday). Foot Waffle boots on. Nursing
to change R foot dressing, discussed with NADIA Shultz. R ischial pressure injury almost healed, silicone foam dressing maintained. Sacrum is intact, silicone foam maintained. Patient turned to L semi side lying position with help from NADIA Shultz.
Patient is on a [facility] air bed. Dr. Salazar approved skin tear local care. Care plan to be updated. Will follow as needed.
--- NOTE | 2024-01-05 15:46 | W.PN.HOSP.TC ---
Today's Communication/Plan
-
VSE
IVF
await to see if mentation improves and based on VSE will determine if pt can resume diet
Assessment / Plan
Assessment / Plan
Assessment/Plan
# Acute on chronic microcytic anemia
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
# History of possible bleeding gastric ulcer (History of 'hole in stomach' and told this was cause of his anemia on prior hospitalization ? [place])
-Hemoglobin 6.4 from 9.9
-1 unit of blood --> subsequent Hgb improved significantly -->Hgb 9.0-->8.7
-Hemoccult negative
-Diet advanced to Diabetic Diet
-Resumed home Aspirin and Plavix, and Hgb has remained stable since then
Call placed to [facility] Whittington, he will check records, was on Plavix in past, possibly related to use at [place] for PAD
at this point, ASA/Plavix risk:benefit would favor stopping
-Protonix 40 IV twice daily
-Continue IV iron - can switch to PO iron on discharge
-Vitamin B12 (within normal limits)
-Folate (within normal limits)
-GI consulted, recommendations appreciated
-Given that patient has no overt bleeding, hold off on endoscopic workup given age and comorbidities unless patient has active bleeding
-Patient should follow-up at [facility] after discharge with his outpatient stamping die try out worker.
-No MRI for right now for evaluating the pancreatic lesion noted on prior imaging since patient has a pacemaker and would need cardiac clearance will likely also need to do this as outpatient with his outpatient stamping die try out worker at [facility] but
given his age and comorbidities and given the lesion is less than 1 cm with no worrisome features noted would hold on further workup as IP -- as per stamping die try out worker
-Appreciate GI requesting records from multiple facilities
-Follow up at [facility] for IV infusions and injections for anemia
-Consulted hematology for anemia, recommendations appreciated
-Discussed case (on January 03, 2024) via [employer] with Dr. Pittman of hematology and patient is okay to discharge with Ferrous Sulfate 325 mg Q48H
-Follow-up with hematology for Aranesp
#Fall on January 04, 2024
-Fall was unwitnessed
-Fall may have been associated with syncope and could be cardiac vs. mechanical vs. seizure vs. hypotension vs. rolling out of bed
discussed with Dr. Bhatti, the PPM did not demonstrate any significant arrhythmias
-Right head laceration and multiple skin tears from fall: nurses will contact wound care/ER staff to suture
-Wound/ostomy care
-STAT CT HEAD: No acute intracranial abnormality noted.
-STAT CXR : No acute fracture of either clavicle. No evidence for shoulder separation of either shoulder. Mild degenerative changes of the acromioclavicular joints bilaterally. Soft tissues grossly unremarkable bilaterally.
-BP appears to be fluctuating - transfer to IMU for closer monitoring
-Check troponins
-Echo
-EKG results noted concerning for accelerated junctional rhythm with PVCs
-input from cardiology appreciated
-input from neurology appreciated
As per Kevin, pt was able to fully hold a conversation prior to the fall, his current mentation is different from prior to the fall
#Constipation
-Continue Miralax
#Mildly elevated AST/Alk Phos
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
#Hypoattenuating lesions within the pancreas
-Follow-up outpatient
History of AV block status post pacemaker
Chronic HFpEF
-Continue Lasix
-Continue isosorbide dinitrate
Moderate aortic stenosis
Essential hypertension
-Continue hydralazine
Peripheral arterial disease status post right femoral endarterectomy/bypass
-Underwent right superficial femoral to below-knee popliteal artery bypass with ipsilateral greater saphenous vein conduit, as per Dr. Whittington, was unsuccessful and would not need DAPT from his perspective
-stop aspirin and Plavix post fall
Right lower extremity foot injury status post debridement
Type 2 diabetes mellitus
-Continue saxagliptin or suitable alternative
-Insulin sliding scale
Diabetic neuropathy
-Continue tramadol
Neurogenic bladder with chronic Maddox catheter
Hyperlipidemia
-Continue statin
CKD
-Renal function at baseline
Anxiety
-Continue lorazepam, mirtazapine
GERD/hiatal hernia
History of nonhealing lower extremity wounds
PAD
Right lower extremity angioplasty/stent March 2023
Right foot wounds
HLD
Osteomyelitis
Neurogenic bladder
Cachexia
Full code - this was confirmed
DVT prophylaxis�SCDs
Diet: Diabetic Diet
complex visit. Extensive review with NICOL Brown and NADIA Shultz
Anticipated Discharge: > 48 hours
Subjective/Interval History
-
Date of Service: January 05, 2024
awake, poorly communicative
Objective Data
-
Vital Signs:
Vital Signs
Temp Pulse Resp BP Pulse Ox
98.2 F 97 24 166/93 99
01/05/24 11:23 01/05/24 10:38 01/05/24 10:38 01/05/24 10:38 01/05/24 11:16
I&O
01/04/24 01/05/24 01/06/24
06:59 06:59 06:59
Intake Total 720 / 720 480 / 480
Output Total 1100 / 1100 1225 / 1225
Balance -380 / -380 -745 / -745
Review of Systems
-
History Source: Patient and Family (1st cousin, NICOL Brown)
Constitutional: Denies Fever
EENT: Reports No Symptoms Reported
Respiratory: Reports Cough
Cardiac: Reports No Symptoms
Abdomen/GI: Reports No Symptoms
Physical Exam
-
General: Well Developed, Appears Chronically Ill and Cachectic
HEENT: Normocephalic; Negative Atraumatic (facial trauma post fall)
Respiratory: Rhonchi (upper airway rhonchi)
Cardiac: Regular Rhythm and S1/S2
GI: Soft, Nontender and Nondistended
Musculoskeletal: No Clubbing, No Cyanosis, No Edema and Other (pt is chronically nonambulatory)
Neuro: Awake, Alert and Other (speech is very garbled)
--- NOTE | 2024-01-05 16:20 | CM ---
Addendum entered by Karol Cabrera RN 01/05/24 16:36:
Noting wound care nurse notes.
Original Note:
Patient from [facility] at [facility] with anemia, s/p unwitnessed fall yesterday with Right head laceration and multiple skin tears. O2 2L. NPO/IVF. Per nurse assessment; confused, lethargic.
CM continuing to follow for d/c needs.
[facility] - for Report, Personal Care unit: [phone], .
Plan contact patient's family when closer to d/c.
Plan return to [facility] when medically ready.
[2024-01-05] MEDS: APRESOLINE PO (16:34)
[2024-01-05] MEDS: ISORDIL PO (16:34)
[2024-01-05] MEDS: MIRALAX PO (16:34)
[2024-01-05] MEDS: LASIX PO (16:36)
[2024-01-05] MEDS: ASPIR LOW (ENTERIC COATED) PO (16:36)
[2024-01-05] MEDS: PLAVIX PO (16:37)
--- NOTE | 2024-01-05 16:43 | PTCARENOTE ---
"Rec'd pt this AM. Slow speech, diffcult to understand but responsive. Lethargic. Placed on aspiration precautions. Per speech, NPO except meds for now. Will have Video swallow eval tomorrow. clifford CAMARENA at bedside. Lengthy discussion with RN "Vineet"and Dr. Salazar regarding goals of care. Will discuss further after VSE. Explained repeatedly aspiration precautions and reasoning behind it. Reviewed plan of care. Also updated nephew Reynaldo by phone. Pt with harsh cough, vital signs stable, anxious"
[2024-01-05 17:00] LABS: Troponin I 0.056 ng/ml
[2024-01-05] MEDS: D5/0.45%NSS with KCL 20 MEQ 1000 IV (17:18)
[2024-01-05] MEDS: APRESOLINE 50 MG PO ×2 (17:18→22:02)
[2024-01-05] MEDS: DAKIN'S SOLUTION 0.125% 1/4 STRENGTH 1 ML TOPICAL (17:18)
[2024-01-05] MEDS: ISORDIL 10 MG PO ×2 (17:19→21:59)
[2024-01-05] MEDS: ULTRAM 50 MG PO (17:19)
[2024-01-05 18:40] LABS: Glucose - Point of Care 104 mg/dl (70-99)
[2024-01-05 18:45] LABS: Urine Albumin 1+ (Neg - Trace); Urine Bilirubin 1+ (Negative); Urine Character Very Cloudy (Clear); Urine Color Yellow; Urine Glucose Negative (Negative); Urine Ketone 1+ (Negative); Urine Leukocyte 2+ (Negative); Urine Nitrite Negative (Negative); Urine Occult Blood 3+ (Negative); Urine Specific Gravity 1.015 (<1.030); Urine Urobilinogen Negative (Neg - 1+)
[2024-01-05 19:01] LABS: Urine Granular Cast >15 /LPF (0); Urine Squamous Cell 0-2 /LPF (Few)
[2024-01-05 19:02] LABS: Urine Bacteria Many (Negative); Urine Red Blood Cell 26-30 /HPF (0-2); Urine White Cell >100 /HPF (0-5)
[2024-01-05 19:50] LABS: Prolactin 8.9 ng/ml (3.7-17.9)
[2024-01-05] MEDS: REMERON 15 MG PO (21:58)
[2024-01-05] MEDS: SENOKOT-S 2 TABLET PO (21:58)
[2024-01-05] MEDS: MELATONIN 6 MG PO (21:59)
[2024-01-05] MEDS: JANUVIA PO (22:01)
[2024-01-05] MEDS: ATIVAN 1 MG PO (22:01)
[2024-01-05] MEDS: LIPITOR 40 MG PO (22:02)
[2024-01-06] VITALS (8 sets, daily range): BP systolic 113–146; BP diastolic 47–98; PULSE 2–85; BMI 18.2
[2024-01-06 00:20] LABS: Glucose - Point of Care 140 mg/dl (70-99)
[2024-01-06] MEDS: NOVOLOG FLEXPEN-LOW RESISTANCE SC (01:11)
[2024-01-06] MEDS: NSS (PRESERVATIVE FREE) 0.25 ML IV ×3 (01:27→23:03)
[2024-01-06] MEDS: ATIVAN 0.5 MG IV ×3 (01:27→23:02)
--- NOTE | 2024-01-06 01:35 | PTCARENOTE ---
Pt AAOx1-2. Pt heard calling out 'help me'. Upon assessment, pt had legs over the raised side rail of the bed and appeared anxious with elevated HR, RR. Pt reassured, comforted, medicated, see MAR. 98% on 2L O2. Pt stating he wants to stay with his
mom. Pt reoriented to situation. Bed alarm in place, call mock placed within reach. This RN will remain nearby pt room to ensure pt safety throughout remainder of shift.
[2024-01-06 04:03] LABS: % Basophils 0.7 % (0-2); % Eosinophils 0.2 % (0-6); % Immature Granulocytes 0.3 % (0-0.5); % Lymphocytes 4.3 % (20.5-51.1); % Neutrophils 78.5 % (42.2-75.2); Absolute Basophils 0.1 10^3/uL (0-0.2); Absolute Lymphocytes 0.4 10^3/uL (1.2-3.4); Absolute Monocytes 1.5 10^3/uL (0.1-0.6); Absolute Neutrophils 7.2 10^3/uL (1.4-6.5); Hematocrit 26.8 % (39.0-52.0); Hemoglobin 8.6 g/dL (13.0-18.0); Mean Corp Hgb Conc. 32.1 g/dL (33.0-37.0); Mean Corpuscular Hgb 23.4 pg (27.0-31.0); Mean Platelet Volume 9.5 fL (7.4-10.4); Nucleated Red Blood Cells % 0.2 % (-); Platelet Count 223 10^3/uL (130-400); Red Blood Cell Count 3.67 10^6/uL (4.70-6.10); Red Cell Dist. Width 22.7 % (11.5-14.5); White Blood Cell Count 9.2 10^3/uL (4.8-10.8)
[2024-01-06 04:22] LABS: ALT (SGPT) 59 U/L (0-50); AST (SGOT) 78 U/L (17-59); Albumin 3.3 g/dl (3.5-5.0); Alkaline Phosphatase 145 U/L (38-126); Blood Urea Nitrogen 36 mg/dl (9-20); Calcium 8.8 mg/dl (8.4-10.2); Carbon Dioxide 19 mmol/L (22-30); Chloride 108 mmol/L (98-107); Estimated Creatinine Clearance 22 ml/min; Glucose 156 mg/dl (70-99); Potassium 4.1 mmol/L (3.5-5.1); Sodium 141 mmol/L (135-145); Total Bilirubin 1.1 mg/dl (0.2-1.3); Total Protein 6.3 g/dl (6.3-8.2); eGFR 36.66
[2024-01-06] MEDS: D5/0.45%NSS with KCL 20 MEQ 1000 IV ×2 (05:01→17:26)
[2024-01-06 06:00] LABS: Anisocytosis 1+; Hypochromasia 1+; Microcytosis 2+; Normal RBC Morphology No
[2024-01-06 06:01] LABS: Acanthocytes 1+; Target Cells 1+; Tear Drop Red Blood Cells Slight
[2024-01-06 06:13] LABS: Glucose - Point of Care 183 mg/dl (70-99)
[2024-01-06] MEDS: NOVOLOG FLEXPEN-LOW RESISTANCE 1 UNITS SC ×3 (06:19→19:17)
[2024-01-06] MEDS: ISORDIL 10 MG PO ×2 (08:50→16:42)
[2024-01-06] MEDS: DAKIN'S SOLUTION 0.125% 1/4 STRENGTH 1 ML TOPICAL (08:50)
[2024-01-06] MEDS: PROTONIX IV 40 MG IV ×2 (08:51→20:42)
[2024-01-06] MEDS: NSS (PRESERVATIVE FREE) 10 ML IV ×2 (08:51→20:42)
[2024-01-06] MEDS: APRESOLINE 50 MG PO ×2 (08:51→16:42)
[2024-01-06] MEDS: MIRALAX PO (08:52)
--- NOTE | 2024-01-06 09:21 | W.PN.ONC ---
Addendum entered and electronically signed by Karon Jean MD 01/06/24 16:32:
Agree w/ A&P as below by [employer] SOLUTION ARCHITECT
Rec. outpatient f/u with his real estate services coordinator
Original Note:
Today's Communication / Plan
-
2/6 Hgb 8.6, PLT 223
s/p 1unit PRBCs
Transfuse as needed to maintain Hgb >7, PLT >20
Supportive care
VSE today
IV iron x5 bags completed
Goals of care to be addressed
Follow up [facility] for Aranesp upon discharge with Rx for oral iron.
We will continue to follow.
Impression
Impression
Hx Myelodysplastic syndrome
Hx of gastric AVMs/GIB
Hx GAVE syndrome
Acute on chronic multifactorial anemia
Iron deficiency anemia
CKD3a
Traumatic fall
Confusion, change in mental status
Subjective/Objective
Subjective/Objective
Patient is in bed. Cooperative with care. Nursing changing wound dressings.
Vital Signs:
Vital Signs
Temp Pulse Resp BP Pulse Ox
99.2 F 86 28 128/52 98
01/06/24 07:30 01/06/24 08:51 01/06/24 06:00 01/06/24 08:51 01/06/24 06:00
physical exam:
aaox1-2, restless at times, pallor
chronically ill appearing
HRR, lungs coarse on 2L nasal cannula
bilateral foot wounds, offloading boots on
Lab Results:
Laboratory Data
WBC 9.2 10^3/uL (4.8-10.8) 01/06/24 03:42
Hgb 8.6 g/dL (13.0-18.0) L 01/06/24 03:42
Plt Count 223 10^3/uL (130-400) 01/06/24 03:42
PT 18.3 Sec (11.4-14.6) H 01/04/24 17:33
INR 1.54 01/04/24 17:33
eGFR 36.66 01/06/24 03:42
[2024-01-06 12:14] LABS: Glucose - Point of Care 196 mg/dl (70-99)
--- NOTE | 2024-01-06 12:32 | PN.CDI ---
CDI
- -
CDI:
Physician Documentation Request
Admit Date: 12/31/23 19:17
Dear Doctor Marie,
Please review the following and provide your response in the progress notes.
Clinical Indicators:
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
WOCN note 01/01 , ' R ischial small stage 3 vs unstageable pressure injury, pink with yellow fibrin center...'
Documented per cardiology consult, ' wheelchair-bound male...neurogenic bladder requiring Maddox catheter,...'
Wound care panel 01/01 , ' R ischium Pressure injury stage 3 ..Silicone border placed...'
Physician documentation of the type and location of wounds is required for compliant documentation. Based on the above clinical findings and your assessment, please provide the following in your progress note:
1. Location of the ulcer/wound, including laterality.
2. Type (etiology) of ulcer/wound:
- Pressure (decubitus) ulcer
- Non-pressure ulcer
- Other
Use of terms such as suspected, likely, concern for, or probable (associated with a specific diagnosis that is being evaluated, monitored, or treated as if it exists) are acceptable and can be coded in the inpatient setting, when documented at the
time of discharge.
Thank you,
Nighat Workman RN
CDI Specialist
[place] [facility]
Please use your independent medical judgment in providing your response.
*Source: National Pressure Ulcer Advisory Panel (NPUAP)
--- NOTE | 2024-01-06 15:08 | PTCARENOTE ---
Rec'd pt this AM. drowsy and lethargic but arousable. Pt for video swallow exam tomorrow. Remains NPO per speech. Meds crushed in applesauce in very small portion OK and tolerated by pt. Remains with much difficulty swallowing however. Vital signs
stable. weaned to RA today. Cousin/POA updated at bedside.
[2024-01-06] MEDS: ULTRAM 50 MG PO (16:42)
--- NOTE | 2024-01-06 18:25 | W.PN.HOSP.TC ---
Today's Communication/Plan
-
VSE tomorrow
Assessment / Plan
Assessment / Plan
Assessment/Plan
# Acute on chronic microcytic anemia
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
# History of possible bleeding gastric ulcer (History of 'hole in stomach' and told this was cause of his anemia on prior hospitalization ? [place])
-Hemoglobin 6.4 from 9.9
-1 unit of blood --> subsequent Hgb improved significantly -->Hgb 9.0-->8.7-->8.6
-Hemoccult negative
-Diet now NPO due to poor responsiveness
-Resumed home Aspirin and Plavix, and Hgb has remained stable since then
Call placed to Fazal Whittington, he will check records, was on Plavix in past, possibly related to use at [facility] for PAD
at this point, ASA/Plavix risk:benefit would favor stopping
-Protonix 40 IV twice daily
-Continue IV iron - can switch to PO iron on discharge
-Vitamin B12 (within normal limits)
-Folate (within normal limits)
-GI consulted, recommendations appreciated
-Given that patient has no overt bleeding, hold off on endoscopic workup given age and comorbidities unless patient has active bleeding
-Patient should follow-up at [facility] after discharge with his outpatient medical billing representative.
-No MRI for right now for evaluating the pancreatic lesion noted on prior imaging since patient has a pacemaker and would need cardiac clearance will likely also need to do this as outpatient with his outpatient medical billing representative at [facility] but
given his age and comorbidities and given the lesion is less than 1 cm with no worrisome features noted would hold on further workup as IP -- as per medical billing representative
-Appreciate GI requesting records from multiple facilities
-Follow up at [facility] for IV infusions and injections for anemia
-Consulted hematology for anemia, recommendations appreciated
#Fall on January 04, 2024
-Fall was unwitnessed
-Fall may have been associated with syncope and could be cardiac vs. mechanical vs. seizure vs. hypotension vs. rolling out of bed
discussed with Dr. Bhatti, the PPM did not demonstrate any significant arrhythmias
-Right head laceration and multiple skin tears from fall: nurses will contact wound care/ER staff to suture
-Wound/ostomy care
-STAT CT HEAD: No acute intracranial abnormality noted.
-STAT CXR : No acute fracture of either clavicle. No evidence for shoulder separation of either shoulder. Mild degenerative changes of the acromioclavicular joints bilaterally. Soft tissues grossly unremarkable bilaterally.
-BP appears to be fluctuating - transfer to IMU for closer monitoring
-Check troponins
-Echo
-EKG results noted concerning for accelerated junctional rhythm with PVCs
-input from cardiology appreciated
-input from neurology appreciated
As per Kevin (POA), pt was able to fully hold a conversation prior to the fall, his current mentation is different from prior to the fall
Reviewed situation with neurology, their feeling is that current situation is a post concussion syndrome post fall, in pt who is chronically impaired. With very limited options
discussed with Kevin and Rosa. Pt to have VSE tomorrow. If pt fails will need to consider PEG placement vs Comfort Care. Will need to review with POA once results of VSE known.
#Constipation
-Continue Miralax
#Mildly elevated AST/Alk Phos
CXR: Progressed findings suggesting left lower lobe pneumonia. Associated layering pleural effusion not excluded.
above findings raise concern for aspiration PNA. Will stop oral medications and begin IV abx
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
#Hypoattenuating lesions within the pancreas
-Follow-up outpatient
History of AV block status post pacemaker
Chronic HFpEF
-Continue Lasix
-Continue isosorbide dinitrate
Moderate aortic stenosis
Essential hypertension
-Continue hydralazine
Peripheral arterial disease status post right femoral endarterectomy/bypass
-Underwent right superficial femoral to below-knee popliteal artery bypass with ipsilateral greater saphenous vein conduit, as per Dr. Whittington, was unsuccessful and would not need DAPT from his perspective
-stop aspirin and Plavix post fall
Right lower extremity foot injury status post debridement
Type 2 diabetes mellitus
-Continue saxagliptin or suitable alternative
-Insulin sliding scale
Diabetic neuropathy
-Continue tramadol
Neurogenic bladder with chronic Maddox catheter
Hyperlipidemia
-Continue statin
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
WOCN note 01/01 , '� R ischial small stage 3 vs unstageable pressure injury, pink with yellow fibrin center...'
Documented per cardiology consult,�'�wheelchair-bound male...neurogenic bladder requiring Maddox catheter,...'
Wound care panel 01/01 , ' R ischium Pressure injury stage 3 ..Silicone border placed...'
CKD
-Renal function at baseline
Anxiety
-Continue lorazepam, mirtazapine
GERD/hiatal hernia
History of nonhealing lower extremity wounds
PAD
Right lower extremity angioplasty/stent March 2023
Right foot wounds
HLD
Osteomyelitis
Neurogenic bladder
Cachexia
Full code - this was confirmed
DVT prophylaxis�SCDs
Diet: Diabetic Diet
complex visit. Extensive review with NICOL Brown , his Rosa and NADIA Shultz
Anticipated Discharge: > 48 hours
Subjective/Interval History
-
Date of Service: January 06, 2024
Met with clifford (NICOL) and Rosa (samirsin's ) and extensively reviewed the situation
Objective Data
-
Vital Signs:
Vital Signs
Temp Pulse Resp BP Pulse Ox
97.3 F 82 12 129/68 98
01/06/24 15:43 01/06/24 16:42 01/06/24 08:00 01/06/24 16:42 01/06/24 13:27
I&O
01/05/24 01/06/24 01/07/24
06:59 06:59 06:59
Intake Total 480 / 480 960 / 960
Output Total 1225 / 1225 850 / 850
Balance -745 / -745 -850 / -850 960 / 960
Review of Systems
-
History Source: Patient and Family (1st cousin, NICOL Brown)
Constitutional: Denies Fever
EENT: Reports No Symptoms Reported
Respiratory: Reports Cough
Cardiac: Reports No Symptoms
Abdomen/GI: Reports No Symptoms
Physical Exam
-
General: Well Developed, Appears Chronically Ill and Cachectic
HEENT: Normocephalic; Negative Atraumatic (facial trauma post fall)
Respiratory: Rhonchi (upper airway rhonchi)
Cardiac: Regular Rhythm and S1/S2
GI: Soft, Nontender and Nondistended
Musculoskeletal: No Clubbing, No Cyanosis, No Edema and Other (pt is chronically nonambulatory)
Neuro: Awake, Alert and Other (speech is very garbled)
[2024-01-06 18:40] LABS: Glucose - Point of Care 191 mg/dl (70-99)
[2024-01-06] MEDS: ATIVAN 1 MG PO (20:43)
[2024-01-06] MEDS: UNASYN IV (20:56)
--- NOTE | 2024-01-06 23:09 | PTCARENOTE ---
HS PO Ativan crushed and given in small amount of applesauce. Patient pocketing applesauce, oral care and suction done. Pt confused, calling out for his mother and father. Re-oriented frequently. Pt is calling out for help constantly, his voice is
hoarse; when asked what he needs help with pt states 'I dont know'. Prn IV ativan given for extreme anxiety. Aspiration precautions in place; HOB >30 degrees, suction at bedside. Bed alarm set for safety. Call mock within reach. Patient's room is
near nursing station.
[2024-01-06] MEDS: NOVOLOG FLEXPEN-LOW RESISTANCE 2 UNITS SC (23:18)
[2024-01-06 23:28] LABS: Glucose - Point of Care 207 mg/dl (70-99)
[2024-01-07] VITALS (11 sets, daily range): BP systolic 118–144; BP diastolic 51–126; BMI 18.7
[2024-01-07 04:28] LABS: % Basophils 0.2 % (0-2); % Immature Granulocytes 0.7 % (0-0.5); % Lymphocytes 1.9 % (20.5-51.1); % Monocytes 10.7 % (1.7-9.3); % Neutrophils 86.5 % (42.2-75.2); Absolute Immature Granulocytes 0.1 10^3/uL (0-0.05); Absolute Lymphocytes 0.2 10^3/uL (1.2-3.4); Absolute Monocytes 1.2 10^3/uL (0.1-0.6); Absolute Neutrophils 9.7 10^3/uL (1.4-6.5); Hematocrit 28.3 % (39.0-52.0); Hemoglobin 8.8 g/dL (13.0-18.0); Mean Corp Hgb Conc. 31.1 g/dL (33.0-37.0); Mean Corpuscular Volume 74.1 fL (80.0-94.0); Mean Platelet Volume 10.3 fL (7.4-10.4); Nucleated Red Blood Cells % 0.4 % (-); Platelet Count 207 10^3/uL (130-400); Red Blood Cell Count 3.82 10^6/uL (4.70-6.10); Red Cell Dist. Width 23.9 % (11.5-14.5); White Blood Cell Count 11.3 10^3/uL (4.8-10.8)
[2024-01-07 05:11] LABS: Blood Urea Nitrogen 36 mg/dl (9-20); Carbon Dioxide 13 mmol/L (22-30); Chloride 110 mmol/L (98-107); Estimated Creatinine Clearance 21 ml/min; Glucose 149 mg/dl (70-99); Potassium 5.7 mmol/L (3.5-5.1); Sodium 143 mmol/L (135-145)
[2024-01-07] MEDS: NOVOLOG FLEXPEN-LOW RESISTANCE SC ×3 (06:16→16:56)
[2024-01-07 06:27] LABS: Glucose - Point of Care 149 mg/dl (70-99)
--- NOTE | 2024-01-07 06:51 | W.PN.UPDATE ---
Update Note
Progress Note Update
RN notified ROTARY CUTTER K 5.7, Bicarb 14, will D/C current fluids with KCL 20ml, Will add Sodium Bicarb 150mEQ at 100 CC/hr. Stat EKG.
--- NOTE | 2024-01-07 07:41 | W.PN.ONC2 ---
Today's Communication / Plan
-
Heme status stable. Heme will sign off.
Impression
Impression
Hx Myelodysplastic syndrome
Hx of gastric AVMs/GIB
Hx GAVE syndrome
Acute on chronic multifactorial anemia
Iron deficiency anemia
CKD3a
Traumatic fall
Confusion, change in mental status
Plan
Plan
Transfuse as needed to maintain Hgb >7, PLT >20.
IV iron x5 bags completed
Continue supportive care.
Goals of care to be addressed.
For possible Video swallow eval today and if fails>> might need PEG unless agrees to hospice.
Follow up [facility] for Ar[facility] upon discharge with Rx for oral iron.
Heme will sign off. Call us again if needed.
Subjective/Objective
Chief Complaint
ACS Heme F/U
Subjective
Weak. Arousable but resting.
Vital Signs:
Vital Signs
Temp Pulse Resp BP Pulse Ox
99.5 F 89 35 132/74 86
01/07/24 03:30 01/07/24 06:00 01/07/24 06:00 01/07/24 06:00 01/07/24 06:00
Lab Results:
Laboratory Data
WBC 11.3 10^3/uL (4.8-10.8) H 01/07/24 03:41
Hgb 8.8 g/dL (13.0-18.0) L 01/07/24 03:41
Plt Count 207 10^3/uL (130-400) 01/07/24 03:41
PT 18.3 Sec (11.4-14.6) H 01/04/24 17:33
INR 1.54 01/04/24 17:33
eGFR 32.30 01/07/24 03:41
Physical Exam
chronically ill
Cardiology: S1 and S2
Pulmonary: Clear
Extremities: Other (B/L foot wounds)
[2024-01-07] MEDS: SODIUM BICARBONATE 1150 MEQ IV (07:49)
[2024-01-07] MEDS: DAKIN'S SOLUTION 0.125% 1/4 STRENGTH 473 ML TOPICAL (07:50)
--- NOTE | 2024-01-07 08:41 | PTCARENOTE ---
Pt seen bu Speech , not appropriate for VS at this time. RSP 36-40 pt not swallowing. Pockets anything put in his mouth
[2024-01-07] MEDS: UNASYN IV (08:51)
[2024-01-07] MEDS: PROTONIX IV 40 MG IV ×2 (08:59→20:31)
[2024-01-07] MEDS: NSS (PRESERVATIVE FREE) 10 ML IV ×2 (08:59→20:31)
[2024-01-07] MEDS: D5/0.45%NSS with KCL 20 MEQ IV (09:00)
--- NOTE | 2024-01-07 11:25 | CM ---
Addendum entered by Mirlande Porter 01/07/24 16:11:
family now wants comfort care per attending.[facility] and spoke with both emmett and david in admissions.they can take patient back either on comfort care or hospice whenever he needs to return.they use [facility] [phone].plan now
is for comfort care since patient has furrther deteriorated.
Original Note:
patient on iv ampicillin for pna,cont 2 liters nc o2,npo,not appropriate for video swallow-does not swallow/pockets foods per speech.bicarb. 14-started na bicarb iv,stat ekg,patient very anxious on iv ativan.continue wound care.patient may need
comfort care.[facility]. cm will continue to follow.
Plan is possible comfort care for patient.
[2024-01-07 12:32] LABS: Blood Urea Nitrogen 37 mg/dl (9-20); Calcium 8.8 mg/dl (8.4-10.2); Carbon Dioxide 15 mmol/L (22-30); Chloride 109 mmol/L (98-107); Estimated Creatinine Clearance 18 ml/min; Glucose 86 mg/dl (70-99); Potassium 5.2 mmol/L (3.5-5.1); Sodium 141 mmol/L (135-145); eGFR 27.32
[2024-01-07 12:33] LABS: Glucose - Point of Care 88 mg/dl (70-99)
--- NOTE | 2024-01-07 14:45 | PTCARENOTE ---
This RN while covering for primary RN at lunch witnessed conversation Dr. Salazar had with patient's family. MD explained a few options to the family. Family member who is POA decided on hospice care for his loved one.
[2024-01-07] MEDS: ATIVAN 0.5 MG IV (16:52)
--- NOTE | 2024-01-07 17:05 | W.PN.HOSP.TC ---
Today's Communication/Plan
-
place on Comfort Care
Assessment / Plan
Assessment / Plan
Assessment/Plan
# Acute on chronic microcytic anemia
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
# History of probable bleeding AVM's vs bleeding gastric ulcer (History of 'hole in stomach' and told this was cause of his anemia on prior hospitalization ? [place])
-Hemoglobin 6.4 from 9.9
-1 unit of blood --> subsequent Hgb improved significantly -->Hgb 9.0-->8.7-->8.6
-Hemoccult negative
-Diet now NPO due to poor responsiveness
-Resumed home Aspirin and Plavix, and Hgb has remained stable since then, high risk for recurrent bleeding and thus they have been stopped
Call placed to [facility]azal Whittington and discussed, he does not know why DAPT was started. Kevin states pt never had a stroke or coronary stents
at this point, ASA/Plavix risk:benefit would favor stopping
-Protonix 40 IV twice daily will continue
-Vitamin B12 (within normal limits)
-Folate (within normal limits)
-GI consulted, recommendations appreciated
-Given that patient has no overt bleeding, hold off on endoscopic workup given age and comorbidities unless patient has active bleeding
-No MRI for right now for evaluating the pancreatic lesion noted on prior imaging since patient has a pacemaker and would need cardiac clearance will likely also need to do this as outpatient with his outpatient psych rn at [place] but
given his age and comorbidities and given the lesion is less than 1 cm with no worrisome features noted would hold on further workup as IP --it is not believed pt would tolerate a work up or any sort of treatment if lesion found to be needing
treatment
-Consulted hematology for anemia, recommendations appreciated
#Fall on January 04, 2024
-Fall was unwitnessed
-Fall may have been associated with syncope and could be cardiac vs. mechanical vs. seizure vs. hypotension vs. rolling out of bed
discussed with Dr. Bhatti, the PPM did not demonstrate any significant arrhythmias
-Right head laceration and multiple skin tears from fall: nurses will contact wound care/ER staff to suture
-Wound/ostomy care
-STAT CT HEAD: No acute intracranial abnormality noted.
-STAT CXR : No acute fracture of either clavicle. No evidence for shoulder separation of either shoulder. Mild degenerative changes of the acromioclavicular joints bilaterally. Soft tissues grossly unremarkable bilaterally.
-BP appears to be fluctuating
-Check troponins
-Echo
-EKG results noted concerning for accelerated junctional rhythm with PVCs
-input from cardiology appreciated
-input from neurology appreciated
As per Kevin (POA), pt was able to fully hold a conversation prior to the fall, his current mentation is different from prior to the fall. As per Rosa (Kevin's ) pt has been slurring words and speech not what is used to be for >6mos
Reviewed situation with neurology, their feeling is that current situation is a post concussion syndrome post fall, in pt who is chronically impaired. With very limited options
discussed with Kevin and Rosa. Speech did not believe pt could tolerate VSE
#Constipation
-Continue Miralax
#Mildly elevated AST/Alk Phos
CXR: Progressed findings suggesting left lower lobe pneumonia. Associated layering pleural effusion not excluded.
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
#Hypoattenuating lesions within the pancreas
-Follow-up outpatient
History of AV block status post pacemaker
Chronic HFpEF
Moderate aortic stenosis
Essential hypertension
-Continue hydralazine
Peripheral arterial disease status post right femoral endarterectomy/bypass
-Underwent right superficial femoral to below-knee popliteal artery bypass with ipsilateral greater saphenous vein conduit, as per Dr. Whittington, was unsuccessful and would not need DAPT from his perspective
-stop aspirin and Plavix post fall
Right lower extremity foot injury status post debridement, hx of osteomyelitis and pt is nonambulatory
Type 2 diabetes mellitus
Diabetic neuropathy
-Continue tramadol
Neurogenic bladder with chronic Maddox catheter
Hyperlipidemia
-Continue statin
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
WOCN note 01/01 , '� R ischial small stage 3 vs unstageable pressure injury, pink with yellow fibrin center...'
Documented per cardiology consult,�'�wheelchair-bound male...neurogenic bladder requiring Maddox catheter,...'
Wound care panel 01/01 , ' R ischium Pressure injury stage 3 ..Silicone border placed...'
CKD 3b as baseline
Anxiety
-Continue lorazepam, mirtazapine
GERD/hiatal hernia
History of nonhealing lower extremity wounds
PAD
Right lower extremity angioplasty/stent March 2023
Right foot wounds
HLD
Osteomyelitis
Neurogenic bladder
Cachexia
Pt to be changed to DNR and placed on Comfort Care
He has a very high burden of chronic disease and probability of meaningful recovery is very low. Kevin, pt's NICOL and his Rosa have determined that the most loving thing to do is to allow pt to be comfortable in his final days and thus all
meds, unless related to Comfort Care will be stopped.
Case Management contacted [facility] and confirmed that pt could be dc on [facility] or Hospice there. They will take care of narcotic analgesia if needed.
Will transfer [facility] to
time spent 60 minutes
Anticipated Discharge: 24 - 48 hours
Subjective/Interval History
-
Date of Service: January 07, 2024
Essentially unresponsive
Objective Data
-
Labs:
Laboratory Results
01/07/24 01/07/24
03:41 12:02
Sodium 143 141
Potassium 5.7 H D 5.2 H
Chloride 110 H 109 H
Carbon Dioxide 13 L* 15 L
BUN 36 H 37 H
Creatinine 2.0 H 2.3 H
Glucose 149 H 86
Calcium 9.0 8.8
Vital Signs:
Vital Signs
Temp Pulse Resp BP Pulse Ox
98.4 F 89 35 132/74 96
01/07/24 11:00 01/07/24 06:00 01/07/24 06:00 01/07/24 06:00 01/07/24 08:00
I&O
01/06/24 01/07/24 01/08/24
06:59 06:59 06:59
Intake Total 1690 / 1690
Output Total 850 / 850 250 / 250
Balance -850 / -850 1440 / 1440
Review of Systems
-
Unable to obtain full review of systems at this time due to: Dementia
History Source: Family
Constitutional: Denies Fever
EENT: Reports No Symptoms Reported
Respiratory: Denies Trouble Breathing
Cardiac: Reports No Symptoms
Physical Exam
-
General: Well Developed, Appears Chronically Ill and Cachectic; Negative Appears in Distress or Fever
HEENT: Normocephalic, Atraumatic and Other (profound temporal muscle atrophy)
Respiratory: Rhonchi (upper airway rhonchi)
Cardiac: Regular Rhythm and S1/S2
GI: Soft, Nontender and Nondistended
--- NOTE | 2024-01-07 17:40 | PTCARENOTE ---
Pt sent to [address] [place] [phone] after giving report
[2024-01-07] MEDS: MORPHINE SULFATE 0.5 MG IV ×2 (18:15→23:52)
[2024-01-08 07:28] VITALS: BP 130/50
[2024-01-08] MEDS: PROTONIX IV 40 MG IV ×2 (07:48→20:04)
[2024-01-08] MEDS: NSS (PRESERVATIVE FREE) 10 ML IV ×2 (07:49→20:04)
[2024-01-08] MEDS: DAKIN'S SOLUTION 0.125% 1/4 STRENGTH 473 ML TOPICAL (07:52)
[2024-01-08] MEDS: MORPHINE SULFATE 0.5 MG IV ×2 (08:15→12:12)
--- NOTE | 2024-01-08 11:08 | PN.CDI ---
CDI
- -
CDI:
Physician Documentation Request
Admit Date: 12/31/23 19:17
Dear Doctor Marie,
Please review the following and provide your response in the progress notes.
Clinical Indicators:
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
Documented per 01/06 Progress note, 'CXR: Progressed findings suggesting left lower lobe pneumonia....above findings raise concern for aspiration PNA. Will stop oral medications and begin IV abx ...'
Per MAR did get 2 doses of Unasyn stopped as pt is now comfort care
Vital signs below
01/05/24
10:00 01/05/24
14:00 01/05/24
18:00
Pulse 108 102
Resp Rate 30
01/06/24
22:00 01/06/24
22:02 01/07/24
02:00
Pulse 104 109 106
01/07/24
08:00 01/07/24
10:00 01/07/24
12:00
Resp Rate 35 29 30
01/07/24
14:00 01/07/24
16:00
Resp Rate 25 28
Please clarify which of the following most accurately describes the status of the patient's infection:
Sepsis
- Systemic manifestations of infection, with 2 or more SIRS criteria which include:
- Fever >100.4 degrees F or hypothermia < 96.8 degrees F
- Leukocytosis - WBC > 12,000 or leukopenia - WBC < 4,000 or > 10% bands
- Tachycardia > 90 beats per minute
- Tachypnea - RR > 20 breaths per minute or PaCO2 , 32mmHg
Source: Merck Manual 2012
Aspiration Pneumonia only , Without Systemic Illness
Other
Use of terms such as suspected, likely, concern for, or probable (associated with a specific diagnosis that is being evaluated, monitored, or treated as if it exists) are acceptable and can be coded in the inpatient setting, when documented at the
time of discharge.
Thank you,
Nighat Workman RN
CDI Specialist
[place] [facility]
Please use your independent medical judgment in providing your response.
--- NOTE | 2024-01-08 11:16 | PN.CDI ---
CDI
- -
CDI:
Physician Documentation Request
Admit Date: 12/31/23 19:17
Dear Doctor Marie ,
Please review the following and provide your response in the progress notes.
Clinical Indicators:
Pt admitted with Suspected GI bleed / GAVE / Iron deficiency Anemia with HX of MDS
Progress note 01/05, ' #Fall on January 04, 2024... As per Kevin, pt was able to fully hold a conversation prior to the fall, his current mentation is different from prior to the fall...awake, poorly communicative...'
Oncology notes 01/05 & 01/06,' Traumatic fall Confusion, change in mental status..'
Progress note 01/06, ' As per Kevin (POA), pt was able to fully hold a conversation prior to the fall, his current mentation is different from prior to the fall Reviewed situation with neurology, their feeling is that current situation is a post
concussion syndrome post fall, in pt who is chronically impaired....CXR: Progressed findings suggesting left lower lobe pneumonia...'
Patient care note 01/06, ' Pt AAOx1-2. Pt heard calling out 'help me'. Upon assessment, pt had legs over the raised side rail of the bed and appeared anxious with elevated HR, RR...Pt stating he wants to stay with his mom. Pt reoriented to situation.
Bed alarm in place, call mock placed within reach. This RN will remain nearby pt room to ensure pt safety throughout remainder of shift.'
Progress note 01/07,' Dementia.'
Based on the above, could you clarify in the Progress Notes and Discharge Summary which, if any of the following, is the most likely etiology of the confusion/altered mental status.
Multifactorial due to post-concussion syndrome/ Dementia with Acute delirium / Metabolic Encephalopathy Encephalopathy
Due to post concussion syndrome only
Other
Use of terms such as suspected, likely, concern for, or probable (associated with a specific diagnosis that is being evaluated, monitored, or treated as if it exists) are acceptable and can be coded in the inpatient setting, when documented at the
time of discharge.
Thank you,
Nighat Workman RN
CDI Specialist
[place] [employer]
Please use your independent medical judgment in providing your response.
--- NOTE | 2024-01-08 11:29 | PN.CDI ---
CDI
- -
CDI:
Physician Documentation Request
Admit Date: 12/31/23 19:17
Dear Doctor Marie,
Please review the following and provide your response in the progress notes.
Clinical Indicators:
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
Documented per 01/06 Progress note, 'CXR: Progressed findings suggesting left lower lobe pneumonia....above findings raise concern for aspiration PNA. Will stop oral medications and begin IV abx ...'
Per MAR did get 2 doses of Unasyn stopped as pt is now comfort care
Vital signs below
01/05/24
10:00 01/05/24
14:00 01/05/24
18:00
Pulse 108 102
Resp Rate 30
01/06/24
22:00 01/06/24
22:02 01/07/24
02:00
Pulse 104 109 106
01/07/24
08:00 01/07/24
10:00 01/07/24
12:00
Resp Rate 35 29 30
01/07/24
14:00 01/07/24
16:00
Resp Rate 25 28
Please clarify which of the following most accurately describes the status of the patient's infection:
Sepsis -Evolved during hospitalization
- Systemic manifestations of infection, with 2 or more SIRS criteria which include:
- Fever >100.4 degrees F or hypothermia < 96.8 degrees F
- Leukocytosis - WBC > 12,000 or leukopenia - WBC < 4,000 or > 10% bands
- Tachycardia > 90 beats per minute
- Tachypnea - RR > 20 breaths per minute or PaCO2 , 32mmHg
Source: Merck Manual 2012
Aspiration Pneumonia only , Without Systemic Illness
Other
Use of terms such as suspected, likely, concern for, or probable (associated with a specific diagnosis that is being evaluated, monitored, or treated as if it exists) are acceptable and can be coded in the inpatient setting, when documented at the
time of discharge.
Thank you,
Nighat Workman RN
CDI Specialist
[place] [employer]
Please use your independent medical judgment in providing your response.
--- NOTE | 2024-01-08 11:31 | PN.CDI ---
CDI
- -
CDI:
Physician Documentation Request
Admit Date: 12/31/23 19:17
Dear Doctor Marie,
Please review the following and provide your response in the progress notes.
Clinical Indicators:
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
Progress note 01/06,' As per Kevin (POA), pt was able to fully hold a conversation prior to the fall, his current mentation is different from prior to the fall Reviewed situation with neurology, their feeling is that current situation is a post
concussion syndrome post fall...'
Progress note 01/07 , ' place on Comfort Care...Essentially unresponsive...'
Please provide for the above findings regarding pts current mental status :
Coma
Unresponsive only
Other
Use of terms such as suspected, likely, concern for, or probable (associated with a specific diagnosis that is being evaluated, monitored, or treated as if it exists) are acceptable and can be coded in the inpatient setting, when documented at the
time of discharge.
Thank you,
Nighat Workman RN
CDI Specialist
[place] [facility]
Please use your independent medical judgment in providing your response.
--- NOTE | 2024-01-08 11:44 | PN.CDI ---
CDI
- -
CDI:
Physician Documentation Request
Admit Date: 12/31/23 19:17
Dear Doctor Marie,
Please review the following and provide your response in the progress notes.
Clinical Indicators:
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
Progress notes 01/06 & 01/07, ' Resumed home Aspirin and Plavix, and Hgb has remained stable since then
Call placed to Fazal Whittington, he will check records, was on Plavix in past, possibly related to use at [facility] for PA at this point, ASA/Plavix risk:benefit would favor stopping...'
Please clarify the relationship between these conditions:
Yes, Acute on Chronic Anemia___ is related to/associated with/exacerbated by ASA/Plavix use ___.
No, _Acute on Chronic Anemia __ is not related to/associated with/exacerbated by ASA/Plavix use ___ but it is due to ___. (Please specify)
Unable to determine
Use of terms such as suspected, likely, concern for, or probable (associated with a specific diagnosis that is being evaluated, monitored, or treated as if it exists) are acceptable and can be coded in the inpatient setting, when documented at the
time of discharge.
Thank you,
Nighat Workman RN
CDI Specialist
[place] [facility]
Please use your independent medical judgment in providing your response.
[2024-01-08] MEDS: ROBINUL 0.200000000000000011 MG IV ×2 (12:13→17:23)
--- NOTE | 2024-01-08 15:04 | CM ---
Currently DNR and on comfort measures. [facility] is able to have patient return on comfort measures or hospice. Await MD determination for future plan of care.
--- NOTE | 2024-01-08 17:54 | W.PN.HOSP.TC ---
Today's Communication/Plan
-
Goal to keep pt in Comfort Status
Assessment / Plan
Assessment / Plan
Assessment/Plan
# Acute on chronic microcytic anemia
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
# History of probable bleeding AVM's vs bleeding gastric ulcer (History of 'hole in stomach' and told this was cause of his anemia on prior hospitalization ? [facility])
Most likely Acute on Chronic Anemia is related to/associated with/exacerbated by ASA/Plavix use and thus would stop
Fe sat was 8%, with Ferritin 21.6 (probable not as low as would be if study was isolated state, and not related to acute phase reaction)
-Hemoglobin 6.4 to (was 9.9 on 07/28/23)
-1 unit of blood --> subsequent Hgb improved significantly -->Hgb 9.0-->8.7-->8.6
-Hemoccult negative
-Diet now NPO due to poor responsiveness
-Resumed home Aspirin and Plavix, and Hgb has remained stable since then, high risk for recurrent bleeding and thus they have been stopped
Call placed to Fazal Whittington and discussed, he does not know why DAPT was started. Kevin states pt never had a stroke or coronary stents
at this point, ASA/Plavix risk:benefit would favor stopping
-Protonix 40 IV twice daily will continue
-Vitamin B12 (within normal limits)
-Folate (within normal limits)
-GI consulted, recommendations appreciated
-Given that patient has no overt bleeding, hold off on endoscopic workup given age and comorbidities unless patient has active bleeding. 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 S/P bone marrow bx 2021 with idiopathic
cytopenias, myelodysplastic syndrome
-No MRI for right now for evaluating the pancreatic lesion noted on prior imaging since patient has a pacemaker and would need cardiac clearance will likely also need to do this as outpatient with his outpatient practice lead at [facility] but
given his age and comorbidities and given the lesion is less than 1 cm with no worrisome features noted would hold on further workup as IP --it is not believed pt would tolerate a work up or any sort of treatment if lesion found to be needing
treatment
-Consulted hematology for anemia, recommendations appreciated
#Fall on January 04, 2024
-Fall was unwitnessed
-Fall may have been associated with syncope and could be cardiac vs. mechanical vs. seizure vs. hypotension vs. rolling out of bed
discussed with Dr. Bhatti, the PPM did not demonstrate any significant arrhythmias
-Right head laceration, ecchymosis of face and multiple skin tears from fall: nurses will contact wound care/ER staff to suture
-Wound/ostomy care
-STAT CT HEAD: No acute intracranial abnormality noted.
-STAT CXR : No acute fracture of either clavicle. No evidence for shoulder separation of either shoulder. Mild degenerative changes of the acromioclavicular joints bilaterally. Soft tissues grossly unremarkable bilaterally.
-BP appears to be fluctuating
-input from cardiology appreciated
-input from neurology appreciated
As per Kevin (POA), pt was able to fully hold a conversation prior to the fall, his current mentation is different from prior to the fall. As per Rosa (Kevin's ) pt has been slurring words and speech not what it used to be for >6mos
Reviewed situation with neurology, their feeling is that current situation is a post concussion syndrome post fall, in pt who is chronically impaired. With very limited options
discussed with Kevin and Rosa. Speech did not believe pt could tolerate VSE and was cancelled
Probable aspiration PNA due to severe swallowing dysfunction from profound weakness. Do not believe pt was septic from this, no fever, WBC remained <12k and tachycardia and tachypnea most likely due to his chronic disease and not sepsis. It is
unclear if PNA adding to his comatose state, but there are other reasons to explain the comatose state. Believe aspiration was not the cause of overwhelming weakness, but was the result of severe weakness
Pt has remained in a coma since the above mentioned fall. The etiology of the mental status impairment is felt to be
Multifactorial� due to post-concussion syndrome/ Dementia / Metabolic Encephalopathy and chronic illness
Today 01/08, I met with the cousin (KevinNICOL) with Kevin's son Alexis on facetime. Pt is endstage with severe burden of multiple chronic diseases. Probability of meaningful recovery is very low.
He is unable to swallow. 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
Discussed whether we should place Keofeed tube for nutritional support to then proceed with placement of PEG tube. Unfortunately, due to his severe burden of disease it is unlikely that placement of tube for nutritional support
will result in any improvement of quality of life and as such, elliot Brown's POA would defer on placement of tube and his preference would be keeping the patient comfortable during his final days. Pt has thus been transitioned to Comfort Care with
consideration to progress to Hospice if does not pass in the near future. Currently does not appear to be in distress and would continue to prioritize maximizing comfort to allow pt to with dignity
CXR: Progressed findings suggesting left lower lobe pneumonia. Associated layering pleural effusion not excluded.
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
#Hypoattenuating lesions within the pancreas
History of AV block status post pacemaker
Chronic HFpEF
Moderate aortic stenosis
Essential hypertension
Peripheral arterial disease status post right femoral endarterectomy/bypass
-Underwent right superficial femoral to below-knee popliteal artery bypass with ipsilateral greater saphenous vein conduit, as per Dr. Whittington, was unsuccessful and would not need DAPT from his perspective
-stop aspirin and Plavix post fall
Right lower extremity foot injury status post debridement, hx of osteomyelitis and pt is nonambulatory
Type 2 diabetes mellitus
Diabetic neuropathy
-Continue tramadol
Neurogenic bladder with chronic Maddox catheter
Hyperlipidemia
-Continue statin
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
WOCN note 01/01 , '� R ischial small stage 3 vs unstageable pressure injury, pink with yellow fibrin center...'
Documented per cardiology consult,�'�wheelchair-bound male...neurogenic bladder requiring Maddox catheter,...'
Wound care panel 01/01 , ' R ischium Pressure injury stage 3 ..Silicone border placed...'
CKD 3b as baseline
GERD/hiatal hernia
History of nonhealing lower extremity wounds
Profound Cachexia with severe muscular wasting, including supraclavicular, temporal muscle wasting, chronic nonambulatory
Pt was changed to DNR and placed on Comfort Care
He has a very high burden of chronic disease and probability of meaningful recovery is very low. Kevin, pt's POA and his Rosa have determined that the most loving thing to do is to allow pt to be comfortable in his final days and thus all
meds, unless related to Comfort Care will be stopped.
Case Management contacted [facility] and confirmed that pt could be dc on Comfort Care or Hospice there. They will take care of narcotic analgesia if needed.
Was transferred [facility] to
time spent 60 minutes
Anticipated Discharge: 24 - 48 hours
Subjective/Interval History
-
Date of Service: January 08, 2024
remains comatose, unresponsive
Objective Data
-
Vital Signs:
Vital Signs
Temp Pulse Resp BP Pulse Ox
97.5 F 78 18 130/50 97
01/08/24 07:28 01/08/24 07:28 01/08/24 07:28 01/08/24 07:28 01/08/24 07:28
I&O
01/07/24 01/08/24 01/09/24
06:59 06:59 06:59
Intake Total 1690 / 1690
Output Total 250 / 250 50 / 50
Balance 1440 / 1440 -50 / -50
Review of Systems
-
Unable to obtain full review of systems at this time due to: Dementia
History Source: Family (cousin Kevin in room)
Constitutional: Denies Fever
EENT: Reports No Symptoms Reported
Respiratory: Denies Trouble Breathing
Cardiac: Reports No Symptoms
Neuro: Reports Other (coma, unresponsive)
Physical Exam
-
General: Well Developed, Appears Chronically Ill and Cachectic; Negative Appears in Distress or Fever
HEENT: Normocephalic, Atraumatic and Other (profound temporal muscle atrophy)
Respiratory: Rhonchi (upper airway rhonchi, consistent with upper airway aspiration)
Cardiac: Regular Rhythm and S1/S2
GI: Soft, Nontender and Nondistended
Neuro: Negative Awake, Alert or Oriented
[2024-01-08 23:26] VITALS: BP 147/76
[2024-01-09] MEDS: MORPHINE SULFATE 0.5 MG IV ×4 (05:32→18:49)
[2024-01-09 07:35] VITALS: BP 129/79
[2024-01-09] MEDS: PROTONIX IV 40 MG IV ×2 (08:45→21:03)
[2024-01-09] MEDS: NSS (PRESERVATIVE FREE) 10 ML IV ×2 (08:45→21:03)
[2024-01-09] MEDS: DAKIN'S SOLUTION 0.125% 1/4 STRENGTH 473 ML TOPICAL (08:45)
--- NOTE | 2024-01-09 09:42 | W.PN.HOSP.TC ---
Today's Communication/Plan
-
Continue Comfort Care
Assessment / Plan
Assessment / Plan
Assessment/Plan
# Acute on chronic microcytic anemia
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
Most likely Acute on Chronic Anemia is related to/associated with/exacerbated by ASA/Plavix use and thus would stop
Fe sat was 8%, with Ferritin 21.6 (probable not as low as would be if study was isolated state, and not related to acute phase reaction)
-Hemoglobin on admission 6.4 (was 9.9 on 07/28/23)
-1 unit of blood --> subsequent Hgb improved significantly -->Hgb 9.0-->8.7-->8.6
-Hemoccult negative
-Diet now NPO due to poor responsiveness
-Protonix 40 IV twice daily will continue
-Vitamin B12 (within normal limits)
-Folate (within normal limits)
-GI consulted, recommendations appreciated
-Given that patient has no overt bleeding, hold off on endoscopic workup given age and comorbidities unless patient has active bleeding. 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
S/P bone marrow bx 2021 with idiopathic cytopenias, myelodysplastic syndrome
-No abd MRI for evaluating the pancreatic lesion noted on prior imaging since patient has a pacemaker and would need cardiac clearance will likely also need to do this as outpatient with his outpatient neurosurgeon at [facility] but given his
age and comorbidities and given the lesion is less than 1 cm with no worrisome features noted would hold on further workup as IP --it is not believed pt would tolerate a work up or any sort of treatment if lesion found to be needing treatment
-Consulted hematology for anemia, recommendations appreciated
#Fall on January 04, 2024
-Fall was unwitnessed
-Fall may have been associated with syncope and could be cardiac vs. mechanical vs. seizure vs. hypotension vs. rolling out of bed
discussed with Dr. Bhatti, the PPM did not demonstrate any significant arrhythmias
-Right head laceration, ecchymosis of face and multiple skin tears from fall: nurses will contact wound care/ER staff to suture
-Wound/ostomy care
-STAT CT HEAD: No acute intracranial abnormality noted.
-STAT CXR : No acute fracture of either clavicle. No evidence for shoulder separation of either shoulder. Mild degenerative changes of the acromioclavicular joints bilaterally. Soft tissues grossly unremarkable bilaterally.
-BP appears to be fluctuating
-input from cardiology appreciated
-input from neurology appreciated
As per Kevin (POA), pt was able to fully hold a conversation prior to the fall, his current mentation is different from prior to the fall. As per Rosa (Kevin's ) pt has been slurring words and speech not what it used to be for >6mos
Reviewed situation with neurology, their feeling is that current situation is a post concussion syndrome post fall, in pt who is chronically impaired. With very limited options
discussed with Kevin and Rosa. Speech did not believe pt could tolerate VSE and was cancelled
Probable aspiration PNA due to severe swallowing dysfunction from profound weakness. Do not believe pt was septic from this, no fever, WBC remained <12k and tachycardia and tachypnea most likely due to his chronic disease and not sepsis. It is
unclear if PNA adding to his comatose state, but there are other reasons to explain the comatose state. Believe aspiration was not the cause of overwhelming weakness, but was the result of severe weakness. It is obvious that the patient is not
able to eat and already in a cachetic state. With pt transitioning to Comfort Care, abx have been stopped. Discussed with POA about placement of Keofeed with high probability to progress to PEG tube. Kevin related that pt would not want feeding
tube. Relayed that would have to decide to allow feeding tube or to go on Comfort Care as unknown when diet could be resumed, very high risk of recurrent aspiration. He voiced preference for Comfort Care. This was confirmed on 01/08,
following day, to confirm mind was not changed.
Pt has remained in a coma since the above mentioned fall. The etiology of the mental status impairment is felt to be
Multifactorial� due to post-concussion syndrome/ Dementia / Metabolic Encephalopathy and chronic illness
On 01/08, I met with the cousin (NICOL Brown) with Kevin's son Alexis on facet. Pt is endstage with severe burden of multiple chronic diseases. Probability of meaningful recovery is very low.
He is unable to swallow. 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
Discussed whether we should place Keofeed tube for nutritional support to then proceed with placement of PEG tube. Unfortunately, due to his severe burden of disease it is unlikely that placement of tube for nutritional support
will result in any improvement of quality of life and as such, elliot Brown's POA would defer on placement of tube and his preference would be keeping the patient comfortable during his final days. Pt has thus been transitioned to Comfort Care with
consideration to progress to Hospice if does not pass in the near future. Currently does not appear to be in distress and would continue to prioritize maximizing comfort to allow pt to with dignity
CXR: Progressed findings suggesting left lower lobe pneumonia. Associated layering pleural effusion not excluded.
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
#Hypoattenuating lesions within the pancreas
History of AV block status post pacemaker
Chronic HFpEF
Moderate aortic stenosis
Essential hypertension
Peripheral arterial disease status post right femoral endarterectomy/bypass
-Underwent right superficial femoral to below-knee popliteal artery bypass with ipsilateral greater saphenous vein conduit, as per Dr. Whittington, was unsuccessful and would not need DAPT from his perspective
-stop aspirin and Plavix post fall
Right lower extremity foot injury status post debridement, hx of osteomyelitis and pt is nonambulatory
Type 2 diabetes mellitus
Diabetic neuropathy
Neurogenic bladder with chronic Maddox catheter
Hyperlipidemia
-Continue statin
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
WOCN note 01/01 , '� R ischial small stage 3 vs unstageable pressure injury, pink with yellow fibrin center...'
Documented per cardiology consult,�'�wheelchair-bound male...neurogenic bladder requiring Maddox catheter,...'
Wound care panel 01/01 , ' R ischium Pressure injury stage 3 ..Silicone border placed...'
CKD 3b as baseline
GERD/hiatal hernia
History of nonhealing lower extremity wounds
Profound Cachexia with severe muscular wasting, including supraclavicular, temporal muscle wasting, chronic nonambulatory
Pt was changed to DNR and placed on Comfort Care
He has a very high burden of chronic disease and probability of meaningful recovery is very low. Kevin, pt's POA and his Rosa have determined that the most loving thing to do is to allow pt to be comfortable in his final days and thus all
meds, unless related to Comfort Care will be stopped.
Case Management contacted [facility] and confirmed that pt could be dc on Comfort Care or Hospice there. They will take care of narcotic analgesia if needed.
Was transferred [facility] to
time spent 40 minutes
Anticipated Discharge: 24 - 48 hours
Subjective/Interval History
-
Date of Service: January 09, 2024
Appears comfortable
Objective Data
-
Vital Signs:
Vital Signs
Temp Pulse Resp BP Pulse Ox
97.5 F 82 20 129/79 95
01/09/24 07:35 01/09/24 07:35 01/09/24 07:35 01/09/24 07:35 01/09/24 07:35
I&O
01/08/24 01/09/24 01/10/24
06:59 06:59 06:59
Intake Total 0 / 0
Output Total 50 / 50 425 / 425
Balance -50 / -50 -425 / -425
Review of Systems
-
Unable to obtain full review of systems at this time due to: Dementia
History Source: Coordinated Provider
Constitutional: Denies Fever
EENT: Reports No Symptoms Reported
Respiratory: Denies Trouble Breathing
Cardiac: Reports No Symptoms
Neuro: Reports Other (coma, unresponsive)
Physical Exam
-
General: Well Developed, Appears Chronically Ill and Cachectic; Negative Appears in Distress or Fever
HEENT: Normocephalic, Atraumatic and Other (profound temporal muscle atrophy)
Respiratory: Rhonchi (upper airway rhonchi, consistent with upper airway aspiration, clearer this morning than yesterday)
Cardiac: Regular Rhythm and S1/S2
GI: Soft, Nontender and Nondistended
Neuro: Negative Awake, Alert or Oriented
--- NOTE | 2024-01-09 09:46 | CM ---
Reviewed the chart notes. Comfort care continues. CM continues to be available to patient/family and is monitoring medical plan for needs at discharge.
Plan: Comfort care.
--- NOTE | 2024-01-09 11:40 | PN.CDI ---
CDI
- -
CDI:
Physician Documentation Request
Admit Date: 12/31/23 19:17
Dear Doctor Marie,
Please review the following and provide your response in the progress notes.
Clinical Indicators:
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
Pt had a fall on 01/04 now with aspiration Pneumonia / comatose and on palliative care
Progress note 01/09,'Profound Cachexia with severe muscular wasting, including supraclavicular, temporal muscle wasting...'
Per nutrition panel Pt has been NPO since 01/04 and ate two meals 20 % & 25 % prior
Nutrition consult on 01/05,' BMI 17.9 underweight range 01/05; 126 lbs 12.8 oz 01/01; 110 lb 14.28 oz 07/07; 120 lb 06/13. Suspect fluid fluctuations will monitor.Diet: pt originally consuming <25% of 2000 kcal Dm diet. 01/05 RN noted coughing with PO
following [employer]. [employer] noted moderate/severe oral and suspected pharyngeal dysphagia. Pt to remain NPO.'
01/01/24
09:42
Actual Weight 126 lb 12.8 oz
01/05/24
05:51
Actual Weight 113 lb 15.664
oz
Based on the information, which of the following most accurately represents the patient's nutritional status?
Mild Protein Calorie Malnutrition
Moderate Protein calorie Malnutrition
Severe protein calorie Malnutrition
Cachexia without malnutrition
other
Mead Criteria ([employer] Hospitalist 2017)
2 or more criteria must be present for either
non severe or severe malnutrition
Note that the criteria differs related to the
presence of an acute or chronic illness
Acute Illness Chronic Illness
Energy Intake Non Severe: <75% for >7 days Non Severe: <75% for >1 month
Severe: <50% for >5 days Severe: <75% for >1 month
Weight Loss Non Severe: 1-2% over 1 week Non Severe: 5% over 1 month
5% over 1 month 7.5% over 3 months
7.5% over 3 months 10% over 6 months
1 year N/A 20% over 1 year
Severe: >2% over 1 week Severe: >5% over 1 month
>5% over 1 month >7.5% over 3 months
>7.5% over 3 months >10% over 6 months
1 year N/A >20% over 1 year
Body Fat Non Severe: Mild Decrease Non Severe: Mild Loss
Severe: Moderate Decrease Severe: Severe Loss
Muscle Mass Non Severe: Mild Decrease Non Severe: Mild Loss
Severe: Moderate Decrease Severe: Severe Loss
Fluid Accumulation Non Severe: Mild Accumulation Non Severe: Mild Accumulation
Severe: Moderate to severe Severe: Moderate to severe
accumulation accumulation
Reduced [employer] Strength Non Severe: N/A Non Severe: N/A
Severe: Measurably reduced Severe: Measurably reduced
Use of terms such as suspected, likely, concern for, or probable (associated with a specific diagnosis that is being evaluated, monitored, or treated as if it exists) are acceptable and can be coded in the inpatient setting, when documented at the
time of discharge.
Thank you,
Nighat Workman RN
CDI Specialist
[place] [facility]
Please use your independent medical judgment in providing your response.
[2024-01-09] MEDS: ATIVAN 0.25 MG IV (18:41)
[2024-01-09 23:51] VITALS: BP 135/60
[2024-01-10] MEDS: MORPHINE SULFATE 0.5 MG IV ×2 (07:06→15:35)
[2024-01-10] MEDS: NSS (PRESERVATIVE FREE) 10 ML IV ×2 (07:06→20:12)
[2024-01-10] MEDS: PROTONIX IV 40 MG IV ×2 (07:06→20:12)
[2024-01-10] MEDS: NSS (PRESERVATIVE FREE) 0.125 ML IV ×3 (07:07→21:00)
[2024-01-10] MEDS: ATIVAN 0.25 MG IV ×3 (07:07→21:00)
[2024-01-10] MEDS: DAKIN'S SOLUTION 0.125% 1/4 STRENGTH 473 ML TOPICAL (07:07)
[2024-01-10 07:35] VITALS: BP 123/81
--- NOTE | 2024-01-10 07:46 | W.PN.HOSP.TC ---
Today's Communication/Plan
-
continue Comfort Care
Assessment / Plan
Assessment / Plan
Pt remains on Comfort Care. He shows no signs of distress currently
# Acute on chronic microcytic anemia
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
Most likely Acute on Chronic Anemia is related to/associated with/exacerbated by ASA/Plavix use and thus would stop
Fe sat was 8%, with Ferritin 21.6 (probable not as low as would be if study was isolated state, and not related to acute phase reaction)
-Hemoglobin on admission 6.4 (was 9.9 on 07/28/23)
-1 unit of blood --> subsequent Hgb improved significantly -->Hgb 9.0-->8.7-->8.6
-Hemoccult negative
-Diet now NPO due to poor responsiveness
-Protonix 40 IV twice daily will continue
-Vitamin B12 (within normal limits)
-Folate (within normal limits)
-GI consulted, recommendations appreciated
-Given that patient has no overt bleeding, hold off on endoscopic workup given age and comorbidities unless patient has active bleeding. 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
S/P bone marrow bx 2021 with idiopathic cytopenias, myelodysplastic syndrome
-No abd MRI for evaluating the pancreatic lesion noted on prior imaging since patient has a pacemaker and would need cardiac clearance will likely also need to do this as outpatient with his outpatient fuel house attendant at [facility] but given his
age and comorbidities and given the lesion is less than 1 cm with no worrisome features noted would hold on further workup as IP --it is not believed pt would tolerate a work up or any sort of treatment if lesion found to be needing treatment
-Consulted hematology for anemia, recommendations appreciated
Severe protein calorie Malnutrition with Cachexia (POA)
Marked muscle wasting, pt at 5'7' and 52.4 kg on admission
#Fall on January 04, 2024
-Fall was unwitnessed
-Fall may have been associated with syncope and could be cardiac vs. mechanical vs. seizure vs. hypotension vs. rolling out of bed
discussed with Dr. Bhatti, the PPM did not demonstrate any significant arrhythmias
-Right head laceration, ecchymosis of face and multiple skin tears from fall: nurses will contact wound care/ER staff to suture
-Wound/ostomy care
-STAT CT HEAD: No acute intracranial abnormality noted.
-STAT CXR : No acute fracture of either clavicle. No evidence for shoulder separation of either shoulder. Mild degenerative changes of the acromioclavicular joints bilaterally. Soft tissues grossly unremarkable bilaterally.
-BP appears to be fluctuating
-input from cardiology appreciated
-input from neurology appreciated
As per Kevin (POA), pt was able to fully hold a conversation prior to the fall, his current mentation is different from prior to the fall. As per Rosa (Kevin's ) pt has been slurring words and speech not what it used to be for >6mos
Reviewed situation with neurology (Dr Black), their feeling is that current situation is a post concussion syndrome post fall, in pt who is chronically impaired. With very limited options
discussed with Kevin and Rosa. Speech did not believe pt could tolerate VSE and was cancelled
Probable aspiration PNA due to severe swallowing dysfunction from profound weakness. Do not believe pt was septic from this, no fever, WBC remained <12k and tachycardia and tachypnea most likely due to his chronic disease and not sepsis. It is
unclear if PNA adding to his comatose state, but there are other reasons to explain the comatose state. Believe aspiration was not the cause of overwhelming weakness, but was the result of severe weakness. It is obvious that the patient is not
able to eat and already in a cachetic state. With pt transitioning to Comfort Care, abx have been stopped. Discussed with POA about placement of Keofeed with high probability to progress to PEG tube. Kevin related that pt would not want feeding
tube. Relayed that would have to decide to allow Keofeed feeding tube or to go on Comfort Care as unknown when diet could be resumed, very high risk of recurrent aspiration. Kevin voiced preference for Comfort Care. This was confirmed on
01/08, following day, to confirm mind was not changed.
Pt has remained in a coma since the above mentioned fall. The etiology of the mental status impairment is felt to be
Multifactorial� due to post-concussion syndrome/ Dementia / Metabolic Encephalopathy and chronic illness
On 01/08, I met with the cousin (NICOL Brown) with Kevin's son Alexis on . Pt is endstage with severe burden of multiple chronic diseases. Probability of meaningful recovery is very low.
He is unable to swallow. 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
Discussed whether we should place Keofeed tube for nutritional support to then proceed with placement of PEG tube. Unfortunately, due to his severe burden of disease it is unlikely that placement of tube for nutritional support
will result in any improvement of quality of life and as such, elliot Brown's POA would defer on placement of tube and his preference would be keeping the patient comfortable during his final days. Pt has thus been transitioned to Comfort Care with
consideration to progress to Hospice if does not pass in the near future. Currently does not appear to be in distress and would continue to prioritize maximizing comfort to allow pt to with dignity
CXR: Progressed findings suggesting left lower lobe pneumonia. Associated layering pleural effusion not excluded.
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
#Hypoattenuating lesions within the pancreas
History of AV block status post pacemaker
Chronic HFpEF
Moderate aortic stenosis
Essential hypertension
Peripheral arterial disease status post right femoral endarterectomy/bypass
-Underwent right superficial femoral to below-knee popliteal artery bypass with ipsilateral greater saphenous vein conduit, as per Dr. Whittington, was unsuccessful and would not need DAPT from his perspective
-stop aspirin and Plavix post fall
Right lower extremity foot injury status post debridement, hx of osteomyelitis and pt is nonambulatory
Type 2 diabetes mellitus
Diabetic neuropathy
Neurogenic bladder with chronic Maddox catheter
Hyperlipidemia
-Continue statin
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
WOCN note 01/01 , '� R ischial small stage 3 vs unstageable pressure injury, pink with yellow fibrin center...'
Documented per cardiology consult,�'�wheelchair-bound male...neurogenic bladder requiring Maddox catheter,...'
Wound care panel 01/01 , ' R ischium Pressure injury stage 3 ..Silicone border placed...'
CKD 3b as baseline
GERD/hiatal hernia
History of nonhealing lower extremity wounds
Profound Cachexia with severe muscular wasting, including supraclavicular, temporal muscle wasting, chronic nonambulatory
Pt was changed to DNR and placed on Comfort Care
He has a very high burden of chronic disease and probability of meaningful recovery is very low. Kevin, pt's POA and his Rosa have determined that the most loving thing to do is to allow pt to be comfortable in his final days and thus all
meds, unless related to Comfort Care will be stopped.
Case Management contacted [facility] and confirmed that pt could be dc on Comfort Care or Hospice there. They will take care of narcotic analgesia if needed.
Was transferred [facility] to
Potential dc to [facility] in 48 hrs if pt does not pass in meantime
Anticipated Discharge: 24 - 48 hours
Subjective/Interval History
-
Date of Service: January 10, 2024
Appears comfortable, no evidence of distress
Objective Data
-
Vital Signs:
Vital Signs
Temp Pulse Resp BP Pulse Ox
94.5 F L 82 16 135/60 92
01/09/24 23:51 01/09/24 23:51 01/09/24 23:51 01/09/24 23:51 01/09/24 23:51
I&O
01/09/24 01/10/24 01/11/24
06:59 06:59 06:59
Intake Total 0 / 0 0 / 0
Output Total 425 / 425 905 / 849
Balance -425 / -425 -775 / -125
Review of Systems
-
Unable to obtain full review of systems at this time due to: Dementia
History Source: Coordinated Provider
Constitutional: Denies Fever
EENT: Reports No Symptoms Reported
Respiratory: Reports Trouble Breathing (pt appears comfortable)
Cardiac: Reports No Symptoms
Neuro: Reports Other (coma, unresponsive)
Physical Exam
-
General: Well Developed, Appears Chronically Ill and Cachectic; Negative Appears in Distress or Fever
HEENT: Normocephalic, Atraumatic and Other (profound temporal muscle atrophy)
Respiratory: Rhonchi (resolved, lungs are totally clear)
Cardiac: Regular Rhythm and S1/S2
GI: Soft, Nontender and Nondistended
Neuro: Negative Awake, Alert or Oriented
[2024-01-10 23:25] VITALS: BP 126/55
[2024-01-11] MEDS: MORPHINE SULFATE 0.5 MG IV ×2 (05:34→11:56)
[2024-01-11] MEDS: NSS (PRESERVATIVE FREE) 0.125 ML IV (05:35)
[2024-01-11] MEDS: ATIVAN 0.25 MG IV ×3 (05:35→15:28)
[2024-01-11 07:30] VITALS: BP 128/63
[2024-01-11] MEDS: PROTONIX IV 40 MG IV ×2 (08:15→22:08)
[2024-01-11] MEDS: NSS (PRESERVATIVE FREE) 10 ML IV ×2 (08:16→22:09)
[2024-01-11] MEDS: DAKIN'S SOLUTION 0.125% 1/4 STRENGTH 473 ML TOPICAL (08:19)
--- NOTE | 2024-01-11 08:53 | W.PN.HOSP.TC ---
Today's Communication/Plan
-
Continue supportive care
Assessment / Plan
Assessment / Plan
Pt remains on Comfort Care. He shows no signs of distress currently
# Acute on chronic microcytic anemia
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
Most likely Acute on Chronic Anemia is related to/associated with/exacerbated by ASA/Plavix use and thus would stop
Fe sat was 8%, with Ferritin 21.6 (probable not as low as would be if study was isolated state, and not related to acute phase reaction)
-Hemoglobin on admission 6.4 (was 9.9 on 07/28/23)
-1 unit of blood --> subsequent Hgb improved significantly -->Hgb 9.0-->8.7-->8.6
-Hemoccult negative
-Diet now NPO due to poor responsiveness
-Protonix 40 IV twice daily will continue
-Vitamin B12 (within normal limits)
-Folate (within normal limits)
-GI consulted, recommendations appreciated
-Given that patient has no overt bleeding, hold off on endoscopic workup given age and comorbidities unless patient has active bleeding. 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
S/P bone marrow bx 2021 with idiopathic cytopenias, myelodysplastic syndrome
-No abd MRI for evaluating the pancreatic lesion noted on prior imaging since patient has a pacemaker and would need cardiac clearance will likely also need to do this as outpatient with his outpatient talent acquisition associate at [facility] but given his
age and comorbidities and given the lesion is less than 1 cm with no worrisome features noted would hold on further workup as IP --it is not believed pt would tolerate a work up or any sort of treatment if lesion found to be needing treatment
-Consulted hematology for anemia, recommendations appreciated
Severe protein calorie Malnutrition with Cachexia (POA)
Marked muscle wasting, pt at 5'7' and 52.4 kg on admission
#Fall on January 04, 2024
-Fall was unwitnessed
-Fall may have been associated with syncope and could be cardiac vs. mechanical vs. seizure vs. hypotension vs. rolling out of bed
discussed with Dr. Bhatti, the PPM did not demonstrate any significant arrhythmias
-Right head laceration, ecchymosis of face and multiple skin tears from fall: nurses will contact wound care/ER staff to suture
-Wound/ostomy care
-STAT CT HEAD: No acute intracranial abnormality noted.
-STAT CXR : No acute fracture of either clavicle. No evidence for shoulder separation of either shoulder. Mild degenerative changes of the acromioclavicular joints bilaterally. Soft tissues grossly unremarkable bilaterally.
-BP appears to be fluctuating
-input from cardiology appreciated
-input from neurology appreciated
As per Kevin (POA), pt was able to fully hold a conversation prior to the fall, his current mentation is different from prior to the fall. As per Rosa (Kevin's ) pt has been slurring words and speech not what it used to be for >6mos
Reviewed situation with neurology (Dr Black), their feeling is that current situation is a post concussion syndrome post fall, in pt who is chronically impaired. With very limited options
discussed with Kevin and Rosa. Speech did not believe pt could tolerate VSE and was cancelled
Probable aspiration PNA due to severe swallowing dysfunction from profound weakness. Do not believe pt was septic from this, no fever, WBC remained <12k and tachycardia and tachypnea most likely due to his chronic disease and not sepsis. It is
unclear if PNA adding to his comatose state, but there are other reasons to explain the comatose state. Believe aspiration was not the cause of overwhelming weakness, but was the result of severe weakness. It is obvious that the patient is not
able to eat and already in a cachetic state. With pt transitioning to Comfort Care, abx have been stopped. Discussed with POA about placement of Keofeed with high probability to progress to PEG tube. Kevin related that pt would not want feeding
tube. Relayed that would have to decide to allow Keofeed feeding tube or to go on Comfort Care as unknown when diet could be resumed, very high risk of recurrent aspiration. Kevin voiced preference for Comfort Care. This was confirmed on
01/08, following day, to confirm mind was not changed.
Pt has remained in a coma since the above mentioned fall. The etiology of the mental status impairment is felt to be
Multifactorial� due to post-concussion syndrome/ Dementia / Metabolic Encephalopathy and chronic illness
On 01/08, I met with the cousin (NICOL Brown) with Kevin's son Alexis on . Pt is endstage with severe burden of multiple chronic diseases. Probability of meaningful recovery is very low.
He is unable to swallow. 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
Discussed whether we should place Keofeed tube for nutritional support to then proceed with placement of PEG tube. Unfortunately, due to his severe burden of disease it is unlikely that placement of tube for nutritional support
will result in any improvement of quality of life and as such, elliot Brown's POA would defer on placement of tube and his preference would be keeping the patient comfortable during his final days. Pt has thus been transitioned to Comfort Care with
consideration to progress to Hospice if does not pass in the near future. Currently does not appear to be in distress and would continue to prioritize maximizing comfort to allow pt to with dignity
CXR: Progressed findings suggesting left lower lobe pneumonia. Associated layering pleural effusion not excluded.
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
#Hypoattenuating lesions within the pancreas
History of AV block status post pacemaker
Chronic HFpEF
Moderate aortic stenosis
Essential hypertension
Peripheral arterial disease status post right femoral endarterectomy/bypass
-Underwent right superficial femoral to below-knee popliteal artery bypass with ipsilateral greater saphenous vein conduit, as per Dr. Whittington, was unsuccessful and would not need DAPT from his perspective
-stop aspirin and Plavix post fall
Right lower extremity foot injury status post debridement, hx of osteomyelitis and pt is nonambulatory
Type 2 diabetes mellitus
Diabetic neuropathy
Neurogenic bladder with chronic Maddox catheter
Hyperlipidemia
-Continue statin
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
WOCN note 01/01 , '� R ischial small stage 3 vs unstageable pressure injury, pink with yellow fibrin center...'
Documented per cardiology consult,�'�wheelchair-bound male...neurogenic bladder requiring Maddox catheter,...'
Wound care panel 01/01 , ' R ischium Pressure injury stage 3 ..Silicone border placed...'
CKD 3b as baseline
GERD/hiatal hernia
History of nonhealing lower extremity wounds
Profound Cachexia with severe muscular wasting, including supraclavicular, temporal muscle wasting, chronic nonambulatory
Pt was changed to DNR and placed on Comfort Care
He has a very high burden of chronic disease and probability of meaningful recovery is very low. Kevin, pt's POA and his Rosa have determined that the most loving thing to do is to allow pt to be comfortable in his final days and thus all
meds, unless related to Comfort Care will be stopped.
Attempted to swing down yesterday and talk to the POA to update, but he had already left.
Case Management contacted [facility] and confirmed that pt could be dc on Comfort Care or Hospice there. They will take care of narcotic analgesia if needed.
Was transferred [facility] to [facility]
Potential dc to [facility] in 48 hrs if pt does not pass in meantime
Anticipated Discharge: 24 - 48 hours
Subjective/Interval History
-
Date of Service: January 11, 2024
Showing a little more movement
Objective Data
-
Vital Signs:
Vital Signs
Temp Pulse Resp BP Pulse Ox
97.4 F 81 20 128/63 96
01/11/24 07:30 01/11/24 07:30 01/11/24 07:30 01/11/24 07:30 01/11/24 07:30
I&O
01/10/24 01/11/24 01/12/24
06:59 06:59 06:59
Intake Total 0 / 0
Output Total 775 / 775 825 / 825
Balance -775 / -775 -825 / -825
Review of Systems
-
Unable to obtain full review of systems at this time due to: Dementia
History Source: Coordinated Provider
Constitutional: Denies Fever
EENT: Reports No Symptoms Reported
Respiratory: Reports Trouble Breathing (pt appears comfortable)
Cardiac: Reports No Symptoms
Neuro: Reports Other (coma, unresponsive)
Physical Exam
-
General: Well Developed, Appears Chronically Ill and Cachectic; Negative Appears in Distress or Fever
HEENT: Normocephalic, Atraumatic and Other (profound temporal muscle atrophy)
Respiratory: Rhonchi (resolved, lungs are totally clear)
Cardiac: Regular Rhythm and S1/S2
GI: Soft, Nontender and Nondistended
Neuro: Negative Awake, Alert or Oriented
[2024-01-11 23:37] VITALS: BP 131/70
[2024-01-12 07:20] VITALS: BP 131/75
--- NOTE | 2024-01-12 08:02 | W.PN.HOSP.TC ---
Today's Communication/Plan
-
Patient does not appear to be in distress or pain
Continue Comfort Care
Discharge planning
Assessment / Plan
Assessment / Plan
� pt has not woken up post concussion, post fall. Multiple meetings with NICOL Brown. Major issue was nutritional support and would they want an NG tube and probably require PEG tube. Kevin felt very strongly that pt would not have wanted a tube
placed and as such was placed on Comfort Care. IVF stopped and he has remained in a coma, but has not yet passed. CM is aware and potential dc to [facility] for Comfort with transition to Hospice
Physical Exam
General: Appears Chronically Ill and Cachectic
HEENT: Normocephalic, Atraumatic and Other (profound temporal muscle atrophy)
Respiratory: Clear to Auscultation Bilaterally
Cardiac: Regular Rhythm and S1/S2
GI: Soft, Nontender and Nondistended. Hypoactive bowel sounds.
Neuro: Sleeping/lethargic. Somewhat arousable when called.
Assessment/Plan
Pt remains on Comfort Care. He shows no signs of distress currently
# Acute on chronic microcytic anemia
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
Most likely Acute on Chronic Anemia is related to/associated with/exacerbated by ASA/Plavix use and thus ASA/Plavix stopped
Fe sat was 8%, with Ferritin 21.6 (probable not as low as would be if study was isolated state, and not related to acute phase reaction)
-Hemoglobin on admission 6.4 (was 9.9 on 07/28/23)
-1 unit of blood --> subsequent Hgb improved significantly -->Hgb 9.0-->8.7-->8.6
-Hemoccult negative
-Diet now NPO (except for sips of clears) due to poor responsiveness
-Protonix 40 IV twice daily will continue
-Vitamin B12 (within normal limits)
-Folate (within normal limits)
-GI consulted, recommendations appreciated
-Given that patient has no overt bleeding, GI held off on endoscopic workup given age and comorbidities unless patient had active bleeding. 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
4-27). S/P bone marrow bx 2021 with idiopathic cytopenias, myelodysplastic syndrome
-No abd MRI for evaluating the pancreatic lesion noted on prior imaging since patient has a pacemaker and would need cardiac clearance will likely also need to do this as outpatient with his outpatient human capital manager at [place] but given his
age and comorbidities and given the lesion is less than 1 cm with no worrisome features noted would hold on further workup as IP --it is not believed pt would tolerate a work up or any sort of treatment if lesion found to be needing treatment
-Consulted hematology for anemia, recommendations appreciated
Severe protein calorie Malnutrition with Cachexia (POA)
Marked muscle wasting, pt at 5'7' and 52.4 kg on admission
#Fall on January 04, 2024
-Fall was unwitnessed
-Fall may have been associated with syncope and could be cardiac vs. mechanical vs. seizure vs. hypotension vs. rolling out of bed
Dr. Salazar discussed with Dr. Bhatti, the PPM did not demonstrate any significant arrhythmias
-Right head laceration, ecchymosis of face and multiple skin tears from fall: nurses will contact wound care/ER staff to suture
-Wound/ostomy care
-STAT CT HEAD: No acute intracranial abnormality noted.
-STAT CXR : No acute fracture of either clavicle. No evidence for shoulder separation of either shoulder. Mild degenerative changes of the acromioclavicular joints bilaterally. Soft tissues grossly unremarkable bilaterally.
-BP was fluctuating
-input from cardiology appreciated
-input from neurology appreciated
As per Kevin (POA), pt was able to fully hold a conversation prior to the fall, his current mentation is different from prior to the fall. As per Rosa (Kevin's ) pt has been slurring words and speech not what it used to be for >6mos
Reviewed situation with neurology (Dr Black), their feeling is that current situation is a post concussion syndrome post fall, in pt who is chronically impaired. With very limited options
Dr. Salazar discussed with Kevin and Rosa. Speech did not believe pt could tolerate VSE and was cancelled
Probable aspiration PNA due to severe swallowing dysfunction from profound weakness. Do not believe pt was septic from this, no fever, WBC remained <12k and tachycardia and tachypnea most likely due to his chronic disease and not sepsis. It is
unclear if PNA adding to his comatose state, but there are other reasons to explain the comatose state. Believe aspiration was not the cause of overwhelming weakness, but was the result of severe weakness. It is obvious that the patient is not
able to eat and already in a cachetic state. With pt transitioned to Comfort Care, abx were stopped. Dr. Salazar discussed with NICOL about placement of Keofeed with high probability to progress to PEG tube. Kevin related that pt would not want
feeding tube. Dr. Salazar relayed that would have to decide to allow Keofeed feeding tube or to go on Comfort Care as unknown when diet could be resumed, very high risk of recurrent aspiration. Kevin voiced preference for Comfort Care. This was
confirmed on 01/08, following day, to confirm mind was not changed.
Pt has remained in a coma since the above mentioned fall. The etiology of the mental status impairment is felt to be
Multifactorial� due to post-concussion syndrome/ Dementia / Metabolic Encephalopathy and chronic illness
On 01/08, Dr. Salazar met with the cousin (Kevin, NICOL) with Kevin's son Alexis on . Pt is endstage with severe burden of multiple chronic diseases. Probability of meaningful recovery is very low.
He is unable to swallow. 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
Dr. Salazar discussed whether we should place Keofeed tube for nutritional support to then proceed with placement of PEG tube. Unfortunately, due to his severe burden of disease it is unlikely that placement of tube for
nutritional support will result in any improvement of quality of life and as such, Kevin pt's POA would defer on placement of tube and his preference would be keeping the patient comfortable during his final days. Pt has thus been transitioned to
Comfort Care with consideration to progress to Hospice if does not pass in the near future. Currently does not appear to be in distress and would continue to prioritize maximizing comfort to allow pt to with dignity
CXR: Progressed findings suggesting left lower lobe pneumonia. Associated layering pleural effusion not excluded.
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
#Hypoattenuating lesions within the pancreas
History of AV block status post pacemaker
Chronic HFpEF
Moderate aortic stenosis
Essential hypertension
Peripheral arterial disease status post right femoral endarterectomy/bypass
-Underwent right superficial femoral to below-knee popliteal artery bypass with ipsilateral greater saphenous vein conduit, as per Dr. Whittington, was unsuccessful and would not need DAPT from his perspective
-Aspirin and Plavix both stopped status post fall
Right lower extremity foot injury status post debridement, hx of osteomyelitis and pt is nonambulatory
Type 2 diabetes mellitus
Diabetic neuropathy
Neurogenic bladder with chronic Maddox catheter
Hyperlipidemia
-Continue statin
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
WOCN note 01/01 , '� R ischial small stage 3 vs unstageable pressure injury, pink with yellow fibrin center...'
Documented per cardiology consult,�'�wheelchair-bound male...neurogenic bladder requiring Maddox catheter,...'
Wound care panel 01/01 , ' R ischium Pressure injury stage 3 ..Silicone border placed...'
CKD 3b as baseline
GERD/hiatal hernia
History of nonhealing lower extremity wounds
Profound Cachexia with severe muscular wasting, including supraclavicular, temporal muscle wasting, chronic nonambulatory
Pt was changed to DNR and placed on Comfort Care
He has a very high burden of chronic disease and probability of meaningful recovery is very low. Kevin, pt's NICOL and his Rosa have determined that the most loving thing to do is to allow pt to be comfortable in his final days and thus all
meds, unless related to Comfort Care will be stopped.
Case Management contacted [facility] and confirmed that pt could be dc on Comfort Care or Hospice there. They will take care of narcotic analgesia if needed.
[facility]
Potential dc to [facility] in 48 hrs if pt does not pass in meantime
Anticipated Discharge: > 48 hours
Subjective/Interval History
-
Date of Service: January 12, 2024
Patient was seen and examined. He was sleeping in his bed, and slightly moved his eyelids and forehead, when called. He was also moving his arms occasionally.
Objective Data
-
Vital Signs:
Vital Signs
Temp Pulse Resp BP Pulse Ox
97.8 F 87 12 131/75 97
01/12/24 07:20 01/12/24 07:20 01/12/24 07:20 01/12/24 07:20 01/12/24 07:20
I&O
01/11/24 01/12/24 01/13/24
06:59 06:59 06:59
Output Total 825 / 825 650 / 650
Balance -825 / -825 -650 / -650
[2024-01-12] MEDS: DAKIN'S SOLUTION 0.125% 1/4 STRENGTH 473 ML TOPICAL (08:05)
[2024-01-12] MEDS: PROTONIX IV 40 MG IV ×2 (08:06→21:37)
[2024-01-12] MEDS: NSS (PRESERVATIVE FREE) 10 ML IV ×2 (08:06→21:37)
[2024-01-12] MEDS: ATIVAN 0.25 MG IV ×3 (08:06→17:07)
[2024-01-12] MEDS: MORPHINE SULFATE 0.5 MG IV ×3 (12:50→21:50)
--- NOTE | 2024-01-12 12:52 | CHAP ---
Rabbi Montez Palacios of [facility] in [place] came and prayed for Melanie at his family's request.
--- NOTE | 2024-01-12 14:14 | CM ---
Reviewed the chart notes. Patient remains on comfort care. CM continues to be available to patient/family and is monitoring medical plan for needs at discharge.
Plan: Comfort Care.
[2024-01-12 19:35] VITALS: BP 139/71
[2024-01-13] MEDS: NSS (PRESERVATIVE FREE) 0.125 ML IV ×2 (05:31→11:17)
[2024-01-13] MEDS: ATIVAN 0.25 MG IV ×3 (05:31→19:08)
[2024-01-13] MEDS: MORPHINE SULFATE 0.5 MG IV ×6 (05:31→19:08)
[2024-01-13 07:30] VITALS: BP 126/63
[2024-01-13] MEDS: DAKIN'S SOLUTION 0.125% 1/4 STRENGTH 473 ML TOPICAL (08:05)
[2024-01-13] MEDS: PROTONIX IV 40 MG IV ×2 (08:06→21:02)
[2024-01-13] MEDS: NSS (PRESERVATIVE FREE) 10 ML IV ×2 (08:07→21:02)
--- NOTE | 2024-01-13 15:09 | W.PN.HOSP.TC ---
Today's Communication/Plan
-
Continue comfort care
Assessment / Plan
Assessment / Plan
Physical Exam
General: Appears Chronically Ill and Cachectic
HEENT: Normocephalic, Atraumatic and Other (profound temporal muscle atrophy)
Respiratory: Clear to Auscultation Bilaterally
Cardiac: Regular Rhythm and S1/S2
GI: Soft, Nontender and Nondistended. Hypoactive bowel sounds.
Neuro: Sleeping/lethargic. Minimally arousable when called.
Assessment/Plan
Pt remains on Comfort Care. He shows no signs of distress currently
# Acute on chronic microcytic anemia
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
Most likely Acute on Chronic Anemia is related to/associated with/exacerbated by ASA/Plavix use and thus ASA/Plavix stopped
Fe sat was 8%, with Ferritin 21.6 (probable not as low as would be if study was isolated state, and not related to acute phase reaction)
-Hemoglobin on admission 6.4 (was 9.9 on 07/28/23)
-1 unit of blood --> subsequent Hgb improved significantly -->Hgb 9.0-->8.7-->8.6
-Hemoccult negative
-Diet now NPO (except for sips of clears) due to poor responsiveness
-Protonix 40 IV twice daily will continue
-Vitamin B12 (within normal limits)
-Folate (within normal limits)
-GI consulted, recommendations appreciated
-Given that patient has no overt bleeding, GI held off on endoscopic workup given age and comorbidities unless patient had active bleeding. 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
4-27). S/P bone marrow bx 2021 with idiopathic cytopenias, myelodysplastic syndrome
-No abd MRI for evaluating the pancreatic lesion noted on prior imaging since patient has a pacemaker and would need cardiac clearance will likely also need to do this as outpatient with his outpatient global logistics manager at [place] but given his
age and comorbidities and given the lesion is less than 1 cm with no worrisome features noted would hold on further workup as IP --it is not believed pt would tolerate a work up or any sort of treatment if lesion found to be needing treatment
-Consulted hematology for anemia, recommendations appreciated
Severe protein calorie Malnutrition with Cachexia (POA)
Marked muscle wasting, pt at 5'7' and 52.4 kg on admission
#Fall on January 04, 2024
-Fall was unwitnessed
-Fall may have been associated with syncope and could be cardiac vs. mechanical vs. seizure vs. hypotension vs. rolling out of bed
Dr. Salazar discussed with Dr. Bhatti, the PPM did not demonstrate any significant arrhythmias
-Right head laceration, ecchymosis of face and multiple skin tears from fall: nurses will contact wound care/ER staff to suture
-Wound/ostomy care
-STAT CT HEAD: No acute intracranial abnormality noted.
-STAT CXR : No acute fracture of either clavicle. No evidence for shoulder separation of either shoulder. Mild degenerative changes of the acromioclavicular joints bilaterally. Soft tissues grossly unremarkable bilaterally.
-BP was fluctuating
-input from cardiology appreciated
-input from neurology appreciated
As per Kevin (POA), pt was able to fully hold a conversation prior to the fall, his current mentation is different from prior to the fall. As per Rosa (Kevin's ) pt has been slurring words and speech not what it used to be for >6mos
Reviewed situation with neurology (Dr Black), their feeling is that current situation is a post concussion syndrome post fall, in pt who is chronically impaired. With very limited options
Dr. Salazar discussed with Kevin and Rosa. Speech did not believe pt could tolerate VSE and was cancelled
Probable aspiration PNA due to severe swallowing dysfunction from profound weakness. Do not believe pt was septic from this, no fever, WBC remained <12k and tachycardia and tachypnea most likely due to his chronic disease and not sepsis. It is
unclear if PNA adding to his comatose state, but there are other reasons to explain the comatose state. Believe aspiration was not the cause of overwhelming weakness, but was the result of severe weakness. It is obvious that the patient is not
able to eat and already in a cachetic state. With pt transitioned to Comfort Care, abx were stopped. Dr. Salazar discussed with POA about placement of Keofeed with high probability to progress to PEG tube. Kevin related that pt would not want
feeding tube. Dr. Salazar relayed that would have to decide to allow Keofeed feeding tube or to go on Comfort Care as unknown when diet could be resumed, very high risk of recurrent aspiration. Kevin voiced preference for Comfort Care. This was
confirmed on 01/08, following day, to confirm mind was not changed.
Pt has remained in a coma since the above mentioned fall. The etiology of the mental status impairment is felt to be
Multifactorial� due to post-concussion syndrome/ Dementia / Metabolic Encephalopathy and chronic illness
On 01/08, Dr. Salazar met with the cousin (Kevin, POA) with Kevin's son Alexis on . Pt is endstage with severe burden of multiple chronic diseases. Probability of meaningful recovery is very low.
He is unable to swallow. 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
Dr. Salazar discussed whether we should place Keofeed tube for nutritional support to then proceed with placement of PEG tube. Unfortunately, due to his severe burden of disease it is unlikely that placement of tube for
nutritional support will result in any improvement of quality of life and as such, Kevin pt's POA would defer on placement of tube and his preference would be keeping the patient comfortable during his final days. Pt has thus been transitioned to
Comfort Care with consideration to progress to Hospice if does not pass in the near future. Currently does not appear to be in distress and would continue to prioritize maximizing comfort to allow pt to with dignity
CXR: Progressed findings suggesting left lower lobe pneumonia. Associated layering pleural effusion not excluded.
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
#Hypoattenuating lesions within the pancreas
History of AV block status post pacemaker
Chronic HFpEF
Moderate aortic stenosis
Essential hypertension
Peripheral arterial disease status post right femoral endarterectomy/bypass
-Underwent right superficial femoral to below-knee popliteal artery bypass with ipsilateral greater saphenous vein conduit, as per Dr. Whittington, was unsuccessful and would not need DAPT from his perspective
-Aspirin and Plavix both stopped status post fall
Right lower extremity foot injury status post debridement, hx of osteomyelitis and pt is nonambulatory
Type 2 diabetes mellitus
Diabetic neuropathy
Neurogenic bladder with chronic Maddox catheter
Hyperlipidemia
-Continue statin
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
WOCN note 01/01 , '� R ischial small stage 3 vs unstageable pressure injury, pink with yellow fibrin center...'
Documented per cardiology consult,�'�wheelchair-bound male...neurogenic bladder requiring Maddox catheter,...'
Wound care panel 01/01 , ' R ischium Pressure injury stage 3 ..Silicone border placed...'
CKD 3b as baseline
GERD/hiatal hernia
History of nonhealing lower extremity wounds
Profound Cachexia with severe muscular wasting, including supraclavicular, temporal muscle wasting, chronic nonambulatory
Pt was changed to DNR and placed on Comfort Care
He has a very high burden of chronic disease and probability of meaningful recovery is very low. Kevin, pt's POA and his Rosa have determined that the most loving thing to do is to allow pt to be comfortable in his final days and thus all
meds, unless related to Comfort Care will be stopped.
Case Management contacted [facility] and confirmed that pt could be dc on Comfort Care or Hospice there. They will take care of narcotic analgesia if needed.
Was transferred [facility] to
Potential dc to [facility] in 48 hrs if pt does not pass in meantime
Anticipated Discharge: > 48 hours
Subjective/Interval History
-
Date of Service: January 13, 2024
Patient was seen and examined. He was sleeping comfortably, with minimal response to verbal or tactile stimulation.
Objective Data
-
Vital Signs:
Vital Signs
Temp Pulse Resp BP Pulse Ox
97.5 F 81 17 126/63 98
01/13/24 07:30 01/13/24 07:30 01/13/24 07:30 01/13/24 07:30 01/13/24 07:30
I&O
01/12/24 01/13/24 01/14/24
06:59 06:59 06:59
Intake Total 0 / 0
Output Total 650 / 650 625 / 625
Balance -650 / -650 -625 / -625
[2024-01-13 19:46] VITALS: BP 128/62
[2024-01-13 23:30] VITALS: BP 132/57
[2024-01-14] MEDS: MORPHINE SULFATE 0.5 MG IV ×3 (06:06→15:55)
[2024-01-14] MEDS: ATIVAN 0.25 MG IV ×2 (06:09→15:55)
[2024-01-14] MEDS: NSS (PRESERVATIVE FREE) 0.125 ML IV ×2 (06:10→15:56)
[2024-01-14 07:25] VITALS: BP 155/75
[2024-01-14] MEDS: NSS (PRESERVATIVE FREE) 10 ML IV (09:26)
[2024-01-14] MEDS: DAKIN'S SOLUTION 0.125% 1/4 STRENGTH 473 ML TOPICAL (09:26)
[2024-01-14] MEDS: PROTONIX IV 40 MG IV (09:26)
--- NOTE | 2024-01-14 10:55 | CM ---
Reviewed the chart notes and spoke with the patient's POA Kevin Ktaz via telephone discuss discharge plan of back to facility on hospice. IMM discussed and placed on the chart. Spoke with MARY Rubin ([phone]). Per Caryn, able to accept
patient back to [facility] in [place] on [facility] ([facility]). CM continues to be available to patient/family and is monitoring medical plan for needs at discharge.
Plan: Discharge back to [facility] [place] [facility].
[facility] call report to: [phone]
[facility] fax report to: [phone]
[facility]
Medical necessity and transport forms on chart.
--- NOTE | 2024-01-14 13:12 | W.PN.HOSP.TC ---
Today's Communication/Plan
-
Discharged today to [facility]
Assessment / Plan
Assessment / Plan
Physical Exam
General: Appears Chronically Ill and Cachectic
HEENT: Normocephalic, Atraumatic and Other (profound temporal muscle atrophy)
Respiratory: Clear to Auscultation Bilaterally
Cardiac: Regular Rhythm and S1/S2
GI: Soft, Nontender and Nondistended. Hypoactive bowel sounds.
Neuro: Sleeping/lethargic. Minimally arousable when called.
Assessment/Plan
Pt remains on Comfort Care. He shows no signs of distress currently
# Acute on chronic microcytic anemia
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
Most likely Acute on Chronic Anemia is related to/associated with/exacerbated by ASA/Plavix use and thus ASA/Plavix was previously stopped
Fe sat was 8%, with Ferritin 21.6 (probable not as low as would be if study was isolated state, and not related to acute phase reaction)
-Hemoglobin on admission 6.4 (was 9.9 on 07/28/23)
-1 unit of blood --> subsequent Hgb improved significantly -->Hgb 9.0-->8.7-->8.6-->8.8
-Hemoccult negative
-Diet now NPO (except for sips of clears) due to poor responsiveness
-Protonix 40 IV twice daily will continue
-Vitamin B12 (within normal limits)
-Folate (within normal limits)
-GI consulted, recommendations appreciated
-Given that patient has no overt bleeding, GI held off on endoscopic workup given age and comorbidities unless patient had active bleeding. 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
4-27). S/P bone marrow bx 2021 with idiopathic cytopenias, myelodysplastic syndrome
-No abd MRI for evaluating the pancreatic lesion noted on prior imaging since patient has a pacemaker and would need cardiac clearance would have also needed to do this as outpatient with his outpatient order processing specialist at [place] but given his
age and comorbidities and given the lesion is less than 1 cm with no worrisome features noted inpatient workup was held -- it is not believed pt would tolerate a work up or any sort of treatment if lesion found to be needing treatment. patient is
now hospice/comfort care/
-Consulted hematology for anemia, recommendations appreciated
Severe protein calorie Malnutrition with Cachexia (POA)
Marked muscle wasting, pt at 5'7' and 52.4 kg on admission
#Fall on January 04, 2024
-Fall was unwitnessed
-Fall may have been associated with syncope and could be cardiac vs. mechanical vs. seizure vs. hypotension vs. rolling out of bed
Dr. Salazar discussed with Dr. Bhatti, the PPM did not demonstrate any significant arrhythmias
-Right head laceration, ecchymosis of face and multiple skin tears from fall, wit subsequent wound care
-Wound/ostomy care
-STAT CT HEAD: No acute intracranial abnormality noted. (per radiologist's report)
-STAT CXR : No acute fracture of either clavicle. No evidence for shoulder separation of either shoulder. Mild degenerative changes of the acromioclavicular joints bilaterally. Soft tissues grossly unremarkable bilaterally. (per radiologist's report)
-BP was fluctuating
-input from cardiology appreciated
-input from neurology appreciated
As per Kevin (POA), pt was able to fully hold a conversation prior to the fall, his current mentation is different from prior to the fall. As per Rosa (Kevin's ) pt has been slurring words and speech not what it used to be for >6mos
Reviewed situation with neurology (Dr Black), their feeling is that current situation is a post concussion syndrome post fall, in pt who is chronically impaired. With very limited options
Dr. Salazar discussed with Kevin and Rosa. Speech did not believe pt could tolerate VSE and was cancelled
Probable aspiration PNA due to severe swallowing dysfunction from profound weakness. Do not believe pt was septic from this, no fever, WBC remained <12k and tachycardia and tachypnea most likely due to his chronic disease and not sepsis. It is
unclear if pneumonia adding to his comatose state, but there are other reasons to explain the comatose state. Believe aspiration was not the cause of overwhelming weakness, but was the result of severe weakness. It is obvious that the patient is
not able to eat and already in a cachectic state. With pt transitioned to Comfort Care, abx were stopped. Dr. Salazar discussed with POA about placement of Keofeed with high probability to progress to PEG tube. Kevin related that pt would not want
feeding tube. Dr. Salazar relayed that would have to decide to allow Keofeed feeding tube or to go on Comfort Care as unknown when diet could be resumed, very high risk of recurrent aspiration. Kevin voiced preference for Comfort Care. This was
confirmed on 01/08, following day, to confirm mind was not changed.
Pt has remained in a coma since the above mentioned fall. The etiology of the mental status impairment is felt to be
Multifactorial� due to post-concussion syndrome/ Dementia / Metabolic Encephalopathy and chronic illness
On 01/08, Dr. Salazar met with the cousin (Kevin, POPaulo) with Kevin's son Alexis on facet. Pt is endstage with severe burden of multiple chronic diseases. Probability of meaningful recovery is very low.
He is unable to swallow. 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
Dr. Salazar discussed whether we should place Keofeed tube for nutritional support to then proceed with placement of PEG tube. Unfortunately, due to his severe burden of disease it is unlikely that placement of tube for
nutritional support will result in any improvement of quality of life and as such, Kevin pt's POA would defer on placement of tube and his preference would be keeping the patient comfortable during his final days. Pt was therefore transitioned to
Comfort Care with consideration to progress to Hospice if does not pass in the near future. Currently does not appear to be in distress and would continue to prioritize maximizing comfort to allow pt to with dignity
CXR: Progressed findings suggesting left lower lobe pneumonia. Associated layering pleural effusion not excluded. (as per radiologist's report)
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
#Hypoattenuating lesions within the pancreas
History of AV block status post pacemaker
Chronic HFpEF
Moderate aortic stenosis
Essential hypertension
Peripheral arterial disease status post right femoral endarterectomy/bypass
-Underwent right superficial femoral to below-knee popliteal artery bypass with ipsilateral greater saphenous vein conduit, as per Dr. Whittington, was unsuccessful and would not need DAPT from his perspective
-Aspirin and Plavix both stopped status post fall
Right lower extremity foot injury status post debridement, hx of osteomyelitis and pt is nonambulatory
Type 2 diabetes mellitus
Diabetic neuropathy
Neurogenic bladder with chronic Maddox catheter
Hyperlipidemia
-Continue statin
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
WOCN note 01/01 , '� R ischial small stage 3 vs unstageable pressure injury, pink with yellow fibrin center...'
Documented per cardiology consult,�'�wheelchair-bound male...neurogenic bladder requiring Maddox catheter,...'
Wound care panel 01/01 , ' R ischium Pressure injury stage 3 ..Silicone border placed...'
CKD 3b as baseline
GERD/hiatal hernia
History of nonhealing lower extremity wounds
Profound Cachexia with severe muscular wasting, including supraclavicular, temporal muscle wasting, chronic nonambulatory
Pt was changed to DNR and placed on Comfort Care
He has a very high burden of chronic disease and probability of meaningful recovery is very low. Kevin pt's POA and his Rosa have determined that the most loving thing to do is to allow pt to be comfortable in his final days and thus all
meds, unless related to Comfort Care were stopped.
Case Management contacted [facility] and confirmed that pt could be dc on Comfort Care or Hospice there. They will take care of narcotic analgesia if needed.
Was transferred from IMU to
Patient ready to be discharged today to [facility]
More than 30 minutes spent in discharge including
Final examination of the patient
Summarizing hospital stay
Instructions for continuing care to all relevant caregivers
Preparation of discharge records, prescriptions, and referral forms
Total time spent (in minutes): 36
Anticipated Discharge: Today
Subjective/Interval History
-
Date of Service: January 14, 2024
Patient was seen and examined. Patient's nurse mentioned that patient needed some Morphine overnight, due to pain. Otherwise, he appeared to be comfortable this morning without any other events or issues reported.
Objective Data
-
Vital Signs:
Vital Signs
Temp Pulse Resp BP Pulse Ox
97.6 F 86 19 155/75 95
01/14/24 07:25 01/14/24 07:25 01/14/24 07:25 01/14/24 07:25 01/14/24 07:25
I&O
01/13/24 01/14/24 01/15/24
06:59 06:59 06:59
Intake Total 0 / 0
Output Total 625 / 625 700 / 700
Balance -625 / -625 -700 / -700
--- NOTE | 2024-01-14 14:56 | W.DCSUMMARY ---
Discharge Summary
Discharge Data
Date of Admission: 12/31/23
Date of Discharge: 01/14/24
Total time spent discharging patient (in min): 36
-
Pending Results: No
Hospital Course
83-year-old male past medical history of 2-1 AV block status post pacemaker, chronic heart failure with preserved ejection fraction, moderate aortic stenosis, peripheral arterial disease status post right femoral endarterectomy, diabetes, diabetic
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
(following at [facility]), and myelodysplastic syndrome presented for abnormal labs, generalized weakness and shortness of breath for the previous 2 days. EMS noted that the correction stated hemoglobin 6.8 with subsequent significant improvement
in hemoglobin. Patient's Aspirin and Plavix were held, and he was started on intravenous Protonix. Patient was transfused 1 unit of PRBCs. Patient was also started on intravenous iron.
Hematology was also consulted and recommended continuing a course of intravenous iron. Gastroenterology mentioned that, given that patient has no overt bleeding, endoscopic workup would be held, given age and comorbidities unless patient started to
have active bleeding. They recommended follow-up at [facility] after discharge, with his outpatient wet end operator. Patient was initially scheduled for MRI during his hospital stay to further evaluate his pancreatic lesion noted on prior imaging
but it was noted that patient has a pacemaker and would need cardiac clearance will likely also need to do this as outpatient with his outpatient wet end operator at [facility] but given his age and comorbidities and given the lesion is less than 1
cm with no worrisome features noted would hold on further workup as inpatient.
Patient's Aspirin and Plavix were resumed for his peripheral artery disease. On January 04, 2024, patient had an unwitnessed fall in his room hitting his head as well and work-up was ordered. He had a laceration near his right eyebrow that was
repaired on the same day by a surgeon. He appeared to more confused and less interactive/less conversant than baseline. Work-up was ordered and cardiology and neurology were consulted. There was a concern for labile blood pressure with some
hypotension; patient was transferred to the IMU. CT and CTA head and neck imaging were performed and was negative for any acute hemorrhage, contusion, or significant vessel occlusion. Patient's permanent pacemaker was interrogated and it showed no
arrhythmia. Neurology's impression was that patient most likely had a mechanical fall and concussion which resulted in patient's increasing confusion. There was low suspicion for seizure as electroencephalogram and creatine kinase were unremarkable.
Case was discussed with Dr. Whittington of vascular surgery and it was determined patient would not need Aspirin and Plavix; therefore Aspirin and Plavix were stopped.
Patient was noted to have swallowing difficulties and speech therapist did not believe patient could tolerate a video swallow exam.
Dr. Salazar met with patient's cousin Kevin (patient's POA) and with Kevin's son Alexis on Facetime. It was explained that patient is endstage with severe burden of multiple chronic diseases and that the probability of meaningful recovery is very low -
in the setting of inability to swallow and a state of being emaciated, cachexia, nonambulatory, chronic vascular disease with recurrent bleeding from chronic angioectasia and he was noted to have obvious failing health even prior to the unwitnessed
fall with resultant concussion. Dr. Salazar also discussed whether we should place Keofeed tube for nutritional support to then proceed with placement of PEG tube, but unfortunately, due to patient's severe burden of disease it is unlikely that
placement of tube for nutritional support will result in any improvement of quality of life and as such, Kevin (patient's POA) deferred on placement of tube and his preference would be keeping the patient comfortable during his final days. Patient
was transitioned to comfort care. Patient was soon discharged to [facility].
Discharge Plan
-
Patient Disposition: Jail/SNF
Discharge Diagnosis/Procedures: #Constipation
#Acute on chronic microcytic anemia
#Chronic anemia from underlying Myelodysplastic syndrome and iron deficiency anemia from chronic blood loss from prior history of Gastric antral vascular ectasia
# History of probable bleeding arteriovenous malformations versus bleeding gastric ulcer, most likely from arteriovenous malformations/Gastric antral vascular ectasia
#Severe protein calorie Malnutrition with Cachexia
#Fall on January 04, 2024
#Probable aspiration Pneumonia due to severe swallowing dysfunction from profound weakness
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
#Hypoattenuating lesions within the pancreas
#History of Atrioventricular block block status post pacemaker
#Chronic Heart Failure with Preserved Ejection
#Moderate aortic stenosis
#Essential hypertension
#Peripheral arterial disease status post right femoral endarterectomy/bypass
#Right lower extremity foot injury status post debridement, history of osteomyelitis and patient is non-ambulatory
#Type 2 diabetes mellitus
#Diabetic neuropathy
#Neurogenic bladder with chronic Maddox catheter
#Hyperlipidemia
#Pressure wound injuries in the right ischium
#Chronic Kidney Disease Stage 3b as baseline
#Gastroesophageal Reflux Disease/hiatal hernia
#History of nonhealing lower extremity wounds
#Profound Cachexia with severe muscular wasting, including supraclavicular, temporal muscle wasting, chronic nonambulatory
Condition: Serious
Diet: Other diet
Additional Diets: Continue N.P.O. due to aspiration -- can re-evaluate swallowing
Activity: As tolerated
Driving Restrictions: No driving
Activity Restrictions/Additional Instructions:
Wound Care Instructions
R index finger skin tear-clean with saline, Vaseline gauze, gauze and thomas, change daily and prn drainage.
R shoulder skin tear/abrasion-clean with saline, Vaseline gauze, silicone border foam, change daily and prn drainage.
R forearm scab-protective silicone foam, change q 3 days and prn loosened dressing.
R ischial wound-clean with saline or 1/4 strength Dakin's solution, no sting barrier wipe to surrounding skin (allow to dry), honey gel, silicone border foam, change daily and prn drainage. Or resume prior wound care ordered by [facility].
R lateral forefoot wound-clean with 1/4 strength Dakin's solution, no sting barrier wipe or barrier ointment to surrounding skin, 1/4 strength Dakin's moistened gauze, cover with dry gauze pad and ABD pad, secure with Kerlix (not tight), change
daily and prn drainage. Or resume prior wound care ordered by [facility].
Heels-no sting barrier wipe (allow to dry) and foam dressing, change q 3 days and prn loosened dressing.
Protective silicone border foam to sacrum, change q 3 days and prn loosened dressing.
Air mattress.
Elevate heels off bed; soft heel relief boots (i.e. Foot Waffle boots) as tolerated; air chair cushion under heels/boots.
High end pressure redistributing chair cushion (i.e. Roho); limit sitting to 1 hr bid with Roho chair cushion.
Turning schedule.
Follow up with Dr. Whittington as needed.
Follow up with wound health care attorney or at wound care center as needed, call for an appointment.
Referrals:
De Doran, DO [Family Provider] - in less than 1 week (Patient is now on comfort care/hospice)
Prescriptions:
New
lorazepam [Ativan] 2 mg/mL Solution
0.25 mg IV Q4HPRN PRN (Reason: AGITATION) Qty: 25 0RF
Dakin's Solution 0.125 % Solution
1 applic topical DAILY Qty: 473 0RF
Rx Instructions:
Use as recommended by wound care team/wound care instructions
morphine 2 mg/mL Syringe
0.5 mg IV Q1HPRN PRN (Reason: moderate-severe pain / dyspnea) Qty: 10 0RF
pantoprazole 40 mg Recon Soln
40 mg IV BID Qty: 1 0RF
Discontinued
clopidogrel 75 mg Tablet
75 mg PO DAILY
aspirin 81 mg Tablet,Delayed Release (Dr/Ec)
81 mg PO DAILY
pantoprazole 40 mg Tablet,Delayed Release (Dr/Ec)
40 mg PO DAILY
furosemide 20 mg Tablet
20 mg PO DAILY
lorazepam [Ativan] 1 mg Tablet
1 mg PO HS
isosorbide dinitrate 10 mg Tablet
10 mg PO TID
tramadol 50 mg Tablet
50 mg PO Q8HPRN PRN (Reason: moderate pain)
magnesium hydroxide [Milk of Magnesia] 400 mg/5 mL Suspension
30 ml PO DAILYPRN PRN (Reason: constipation)
acetaminophen 325 mg Tablet
650 mg PO Q4HPRN PRN (Reason: mild pain)
Rx Instructions:
Max dose 3000 mg daily
sennosides-docusate sodium [Stimulant Laxative Plus] 8.6-50 mg Tablet
2 tab PO HS
mirtazapine 15 mg Tablet
15 mg PO HS
hydralazine 25 mg Tablet
50 mg PO TID Qty: 90 0RF
atorvastatin [Lipitor] 40 mg Tablet
40 mg PO HS
ondansetron HCl [Zofran] 4 mg Tablet
4 mg PO Q8HPRN PRN (Reason: nausea)
melatonin 3 mg Tablet
6 mg PO HS
tramadol 50 mg Tablet
50 mg PO QPM
lorazepam 1 mg Tablet
1 mg PO Q8HPRN PRN (Reason: anxiety)
albuterol sulfate [ProAir HFA] 90 mcg/actuation Hfa Aerosol Inhaler
2 puff INHALATION R QIDPRN PRN (Reason: sob)
saxagliptin [Onglyza] 5 mg Tablet
5 mg PO HS
Discharge Orders:
Discharge Patient (As Directed); Ordered 01/14/24
Ordered By: Eddie Pelaez
Discharge Date and Time
Discharge Date/Time: 01/14/24 17:28
--- NOTE | 2024-01-14 15:31 | PTCARENOTE ---
pt continues on comfort measures, unresponsive, no food intake since 01/06 and clear liquid diet prior to that date. Noted no BM with this admission, belly round soft, no discomfort, pt being discharged at [facility] report given and made aware of no BM
during the hospital and they will have Hospice evaluate.
== END 2024-01-14 17:28 | DRG 377 ==
LOC: 2 NORTH 19:17
PROVIDERS: Internal Medicine; Nurse Practitioner; Nurse Practitioner Family; ADMITTING PHYSICIAN Hospitalist; ATTENDING PHYSICIAN Hospitalist; CONSULT PHYSICIAN Internal Medicine Gastroenterology; CONSULT PHYSICIAN Student in an Organized Health Care Education/Training Program; CONSULT PHYSICIAN Surgery; EMERGENCY PHYSICIAN Emergency Medicine; FAMILY PHYSICIAN Internal Medicine; OTHER PHYSICIAN Internal Medicine Cardiovascular Disease; OTHER PHYSICIAN Internal Medicine Hematology & Oncology
PROC: 30233N1 Transfusion of Nonautologous Red Blood Cells into Peripheral Vein, Percutaneous Approach (ICD-10-PCS; 2023-12-31)
DX: K31.811 Angiodysplasia of stomach and duodenum with bleeding (principal); E43 Unspecified severe protein-calorie malnutrition; G93.41 Metabolic encephalopathy; J69.0 Pneumonitis due to inhalation of food and vomit; L89.313 Pressure ulcer of right buttock, stage 3; I50.32 Chronic diastolic (congestive) heart failure; I13.0 Hypertensive heart and chronic kidney disease with heart failure and stage 1 through stage 4 chronic kidney disease, or unspecified chronic kidney disease; R64 Cachexia; Z68.1 Body mass index [BMI] 19.9 or less, adult; I5A Non-ischemic myocardial injury (non-traumatic); D68.32 Hemorrhagic disorder due to extrinsic circulating anticoagulants; D50.9 Iron deficiency anemia, unspecified; Z66 Do not resuscitate; N18.31 Chronic kidney disease, stage 3a; I35.0 Nonrheumatic aortic (valve) stenosis; E11.40 Type 2 diabetes mellitus with diabetic neuropathy, unspecified; K21.9 Gastro-esophageal reflux disease without esophagitis; K44.9 Diaphragmatic hernia without obstruction or gangrene; D46.9 Myelodysplastic syndrome, unspecified; Z79.82 Long term (current) use of aspirin; Z51.5 Encounter for palliative care; Z79.02 Long term (current) use of antithrombotics/antiplatelets; E78.00 Pure hypercholesterolemia, unspecified; N31.9 Neuromuscular dysfunction of bladder, unspecified; N18.32 Chronic kidney disease, stage 3b; D50.0 Iron deficiency anemia secondary to blood loss (chronic); F07.81 Postconcussional syndrome; F03.90 Unspecified dementia, unspecified severity, without behavioral disturbance, psychotic disturbance, mood disturbance, and anxiety
CPT/HCPCS: 36415; 70450; 70496; 70498; 71045; 71111; 73000; 80048; 80053; 81003; 81015; 82140; 82248; 82550; 82607; 82668; 82728; 82746; 82962; 82977; 83036; 83540; 83550; 83605; 83735; 84100; 84146; 84484; 85025; 85027; 85045; 85610; 86850; 86900; 86901; 86920; 87040; 87077; 87086; 87186; 92526; 92610; 93005; 94640; 94660; 95816; 99291; J2916; P9016; Q9967